=== PATIENT | female | born 1950 | race Caucasian/White ===

== ENCOUNTER 2016-07-13 06:14 | Outpatient (CLI) | payer MEDICARE, OTHER ==
[~2016-07-13] VITALS: Ht 154.9 cm; Wt 59.9 kg
[~2016-07-13 06:14] MED LIST: ALPR0.25 PO; AMLO10TA2 PO; CALC-140 PO; DIPH25CA79 PO; GLIM4TAB PO; HYDR-700 PO; HYDR25TA4 PO; INSU100V5 SQ; LEVO112T55 PO; LISI40TA PO; METF1000 PO; METF500T4 PO; PRAV40TA2 PO; SERT50TA9 PO
[2016-07-13] MEDS ORDERED: ALEN70TA2 PO (13:32)
[2016-07-13] MEDS ORDERED: ASPI-586 PO (13:32)
[2016-07-13] MEDS ORDERED: LEVO125T6 PO (13:32)
[2016-07-13] MEDS ORDERED: INSU100I14 SQ (13:34)
[2016-07-13] MEDS ORDERED: DIVA500T PO (13:34)
[2016-07-13] MEDS ORDERED: OLAN5TAB3 PO (13:34)
[2016-07-13] MEDS ORDERED: OMEG100032 PO (13:34)
== END 2016-07-13 13:35 ==
LOC: PREOP 06:14
PROVIDERS: ATTEND Surgery
DX: Z01.818 Encounter for other preprocedural examination (principal); D50.9 Iron deficiency anemia, unspecified; K21.9 Gastro-esophageal reflux disease without esophagitis; K92.1 Melena

== ENCOUNTER 2016-07-17 09:34 | Day surgery (SDC) | payer MEDICARE, OTHER ==
[~2016-07-17] VITALS: Ht 154.9 cm; Wt 59.9 kg
[~2016-07-17 09:34] MED LIST changes: +ALEN70TA2 PO; +ASPI-586 PO; +DIVA500T PO; +INSU100I14 SQ; +LEVO125T6 PO; +OLAN5TAB3 PO; +OMEG100032 PO
[2016-07-17] MEDS ORDERED: NS IV 500 ML 500 ML IV PRN (09:45)
[2016-07-17] MEDS ORDERED: NALOXONE 0.4 MG/ML 1 ML (NARCAN) VIAL IVP PRN (09:45)
[2016-07-17] MEDS ORDERED: HURRICAINE EXT TUBE (BENZOCAINE) XX PRN (09:45)
[2016-07-17] MEDS ORDERED: FLUMAZENIL (ROMAZICON) 0.1 MG/ML 5 ML VIAL INJ PRN (09:45)
--- NOTE | 2016-07-17 09:47 | Conscious Sedation/ASA ---
Conscious Sedation Pre-Proced Time Reviewed: 09:47 ASA Class: 2 Airway Mallampati Classification: (afognak appropriate class) I. II. III, IV Lungs Heart ASA score ASA 1: a normal healthy patient ASA 2: a patient with a mild systemic disease (mid diabetes, controlled hypertension, obesity ASA 3: a patient with a severe systemic disease that limits activity (angina , COPD, prior Myocardial infarction) ASA 4: a patient with an incapacitating disease that is a constant threat to life (CHF, renal failure) ASA 5: a moribund patient not expected to survive 24 hrs. (ruptured aneurysm) ASA 6: a declared brain patient whose organs are being harvested. For emergent operations, add the letter E after the classification Grade 1 Sedation Plan: Discussed options with patient/fam Note The patient is an appropriate candidate to undergo the planned procedure, sedation, and anesthesia. The patient immediately re-assessed prior to indication. DICK SHIRLEY MD Jul 17, 2016 9:47 am
[2016-07-17 10:30] VITALS: BP 130/81
[2016-07-17] MEDS ORDERED: MIDAZOLAM 2 MG/2 ML (VERSED) VIAL ONE ×4 (10:45→10:46)
[2016-07-17] MEDS ORDERED: fentaNYL INJECTION 100 MCG/2 ML AMP ONE ×2 (10:45)
[2016-07-17] MEDS: fentaNYL INJECTION 100 MCG/2 ML AMP IVP PRN ×2 (11:05→11:08)
[2016-07-17] MEDS: MIDAZOLAM 2 MG/2 ML (VERSED) VIAL IVP PRN ×3 (11:06→11:25)
--- NOTE | 2016-07-17 11:41 | Endoscopy Procedure Report ---
Endoscopy Report Date: Jul 17, 2016 Preoperative Diagnosis: iron deficiency anemia. Personal history of polyps Study Performed: Upper Endoscopy, Colonoscopy Procedure Instrument: Endoscope Endo Procedure/Findings Findings 1.: Diverticulosis, Hiatal Hernia, Gastritis Recommendations: Recommendations: 1.: Colonscopy in 5 years Copy Copies To 1: MEDARDO MALDONADO XAVIER M MD Jul 17, 2016 11:41 am
--- NOTE | 2016-07-17 11:43 | Discharge Inst-Simple/Standard ---
Discharge Inst-Standard Discharge Medications New, Converted or Re-Newed RX: Other Patient Instructions/Follow Up Plan of Care/Instructions/FU: follow-up with her primary. Repeat colonoscopy in 5years Activity as Tolerated: Yes Discharge Diet: ADA Diet DICK SHIRLEY MD Jul 17, 2016 11:43 am
[2016-07-17 12:00] VITALS: BP 128/85
[2016-07-17] MEDS ORDERED: HURRICAINE EXT TUBE (BENZOCAINE) ONE (12:06)
--- NOTE | 2016-07-17 12:19 | OPERATIVE REPORT ---
DATE OF SERVICE: 07/17/2016 PROCEDURES: 1. Upper endoscopy with antral biopsy. 2. Colonoscopy. SURGEON: Dick Shirley MD INDICATION FOR PROCEDURE: This lady came in for GI endoscopy to evaluate iron deficiency anemia and symptoms of reflux disease. In addition, she was also found to have a polyp about nine years ago, that was complicated by post-polypectomy bleeding, requiring hospital admission. Informed consent was obtained after reviewing the procedures in detail. DESCRIPTION OF PROCEDURE: 1. Upper GI endoscopy/antral biopsy. She was placed in left lateral decubitus position and her vital signs were monitored. Conscious sedation was achieved using Versed and fentanyl. The flexible gastroscope was introduced down the esophagus, past the stomach into the proximal duodenum. FINDINGS: Esophagus: Quite tortuous with a short hiatal hernia. Stomach: Mild distal gastritis. Biopsy for Helicobacter was obtained. Duodenum: Normal. She tolerated the procedure well and was turned around in preparation for colonoscopy. IMPRESSION: Iron deficiency anemia. Mild gastritis on upper endoscopy. 2. Colonoscopy. Examination of the perianal area revealed external hemorrhoids and skin tags. Digital examination was unremarkable. The colonoscope was then introduced into the rectum and advanced with some difficulty to the cecum. It was then withdrawn slowly and the mucosa examined in a systematic fashion. FINDINGS: 1. External and internal hemorrhoids, possible source of her bleeding. 2. Very large amounts of diverticula. No recurrent polyps were found. She tolerated the procedures well and was taken back to the nursing area in a stable condition. IMPRESSION: Iron deficiency anemia. Previous history of colon polyps, no recurrence. Large mouthed sigmoid diverticula. Job ID: [id number] DocumentID: [id number] Dictated Date: 07/17/2016 11:40:05 Woodworker Date: 07/17/2016 12:19:01 Dictated By: DICK SHIRLEY MD [facility]
[2016-07-17 12:30] VITALS: BP 141/82
== END 2016-07-17 12:37 | disposition home or self-care (01) ==
LOC: ENDO 09:34
PROVIDERS: ATTEND Surgery
DX: K29.70 Gastritis, unspecified, without bleeding (principal); D50.9 Iron deficiency anemia, unspecified; K64.4 Residual hemorrhoidal skin tags; K64.8 Other hemorrhoids; K57.30 Diverticulosis of large intestine without perforation or abscess without bleeding; Z86.010 Personal history of colon polyps

== ENCOUNTER 2016-10-02 22:23 | Emergency (ER) | payer MEDICARE, OTHER ==
[~2016-10-02] VITALS: Ht 154.9 cm; Wt 61.2 kg
--- OUTSIDE RECORDS SUMMARY | 2016-10-02 22:29 | XMS REPORT | Continuity of Care Document ---
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 Major depressive disorder (disorder) Active Problem 11/09 [facility] Medications Medication Details Route Status Patient Instructions Ordering Provider Order Date Source No Known Medications No known medications Active [facility] Allergies, Adverse Reactions, Alerts Immunizations Immunization Date Given Site Status Last Updated Comments Source No data available for this section No data available for this section [employer] Results Vital Signs Encounters Location Location Details Encounter Type Encounter Number Reason For Visit Attending Provider ADM Date DC Date Status Source [facility] [id number] Inpatient [id number] Hussain Bruno 11/05/2015 11/06/2015 Active [facility] Procedures Procedure Code Date Perfomer Comments Source right mastectomy [facility] Plan of Care Social History Assessment and Plan Family History Value Date Source Advance Directives Order Name Results Value Date Source
[2016-10-02] MEDS ORDERED: ONDANSETRON 4 MG/2 ML (SDV) Z0FRAN IM ONE (22:45)
--- NOTE | 2016-10-02 22:45 | ED Fall/Injury ---
General Chief Complaint: Trauma-Non Activation Stated Complaint: RT LEG INJ Source: patient, family (daughter) Exam Limitations: no limitations History of Present Illness Time seen by provider: 22:40 Initial Comments Patient was on the second run of a stepladder in her house and lost her balance and fell off landing with her back against a dresser and then having some pain in her right knee although she is not sure what she hit it on. She states she did not lose consciousness, strike her head nor she on blood thinners. She is having some nausea but no vomiting. She's had no fevers chills rash cough or shortness of breath. She denies dysuria or discharge. Patient's on Fosamax for osteoporosis. She says several days ago she dropped something on her right foot and has had a lot of bruising and swelling but it didn't stop her from walking on it. Today she is unable to bear any weight at all on her right leg due to pain in her right thigh and knee. Allergies and Home Medications Allergies Coded Allergies: No Known Drug Allergies (Unverified , 11/26/15) Home Medications Alendronate Sodium 70 Mg Tablet, 70 MG PO WEEK, (Reported) Amlodipine Besylate 10 Mg Tablet, 10 MG PO DAILY, (Reported) Aspirin 81 Mg Tablet.dr, 81 MG PO DAILY, (Reported) Calcium Carbonate/Vitamin D3 1 Each Tablet, 1 EACH PO BID, (Reported) Cephalexin 500 Mg Capsule, 500 MG PO BID for 7 Days, #13 Ref 0 Prescribed by: HALIE MODI on 10/02/162337 Divalproex Sodium 500 Mg Tablet.dr, 500 MG PO HS, (Reported) Hydrochlorothiazide 25 Mg Tablet, 12.5 MG PO DAILY, (Reported) Hydrocodone/Acetaminophen 1 Each Tablet, 1-2 EACH PO Q6H PRN for BREAKTHROUGH PAIN, #20 Ref 0 Prescribed by: HALIE MODI on 10/02/168 Insulin Aspart 300 Units/3 Ml Solution, 0-20 UNITS SQ ACHS, (Reported) Insulin Determir 1,000 Units/10 Ml Soln, 20 UNITS SQ HS, (Reported) Levothyroxine Sodium 125 Mcg Tablet, 125 MCG PO DAILY, (Reported) Lisinopril 40 Mg Tablet, 40 MG PO HS, (Reported) Metformin HCl 500 Mg Tablet, 500-1,000 MG PO BID, (Reported) take 1 (500mg) tab in am take 2 (500mg) tab in pm Olanzapine 5 Mg Tablet, 5 MG PO HS, (Reported) [place]-3/Dha/Epa/Fish Oil 1,000 Mg Capsule, 1,000 MG PO DAILY, (Reported) Ondansetron 4 Mg Tab.rapdis, 4 MG PO Q6H PRN for NAUSEA/VOMITING-1ST LINE, #10 Ref 0 Prescribed by: HALIE MODI on 10/02/16 2338 Pravastatin Sodium 40 Mg Tablet, 40 MG PO HS, (Reported) Sertraline HCl 50 Mg Tablet, 75 MG PO HS, (Reported) take 1 1/2 of 50mg tab Constitutional: No chills, No diaphoresis, No fever, No malaise Eyes: Denies Blindness, Denies Blurred Vision Ears, Nose, Mouth, Throat: denies ear pain, denies epistaxis Respiratory: No cough, No short of breath Cardiovascular: No chest pain, No palpitations Gastrointestinal: No abdominal pain, No constipation, No diarrhea, nausea, No vomiting Genitourinary: No discharge, No dysuria Musculoskeletal: see HPI, back pain, joint pain (right knee), No joint swelling Skin: No pruritus, No rash Psychiatric/Neurological: Denies Headache, Denies Numbness, Denies Paresthesia Past Unwhltz-Lwhggt-Lgtodo Hx Patient Social History Alcohol Use: Denies Use Recreational Drug Use: No Smoking Status: Never a Smoker Recent Foreign Travel: No Contact w/Someone Who Travel: No Recent Hopitalizations: No Immunizations Up To Date Tetanus Booster (TDap): Unknown Date of Influenza Vaccine: Nov 15, 2015 Seasonal Allergies Seasonal Allergies: No Surgeries History of Surgeries: Yes Surgeries: Breast, Tubal Ligation Respiratory History of Respiratory Disorde: No Cardiovascular History of Cardiac Disorders: Yes Cardiac Disorders: High Cholesterol, Hypertension Neurological History of Neurological Disord: No Reproductive System Hx Reproductive Disorders: No Sexually Transmitted Disease: No HIV/AIDS: No 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 Genitourinary History of Genitourinary Disor: No Gastrointestinal History of Gastrointestinal Di: Yes Gastrointestinal Disorders: Gastroesophageal Reflux, Diverticulosis Musculoskeletal History of Musculoskeletal Dis: No Endocrine History of Endocrine Disorders: Yes Endocrine Disorders: Diabetes, Insulin dep, Hypothyroidsim HEENT History of HEENT Disorders: No Loss of Vision: Bilateral Hearing Impairment: Hard of Hearing, Bilateral Hearing Aide Cancer History of Cancer: Yes Cancer: Breast Did You Recieve Any Treatments: Yes Type of Tx Receive: Surgical Intervention Psychosocial History of Psychiatric Problem: Yes Behavioral Health Disorders: Sleep Difficulties, Anxiety, Depression Integumentary History of Skin or Integumenta: No Blood Transfusions History of Blood Disorders: Yes (anemia) Adverse Reaction to a Blood Tr: No (HAS HAD BLOOD WITH NO REACTION) Physical Exam Vital Signs Vital Sign - Last 12Hours 10/02/16 22:36 Temp 97.6 Pulse 82 Resp 16 B/P (MAP) 137/84 Pulse Ox 95 O2 Delivery Room Air Capillary Refill : General Appearance: WD/WN, no apparent distress HEENT: PERRL/EOMI, pharynx normal Neck: non-tender, normal inspection Cardiovascular: normal peripheral pulses, regular rate, rhythm Respiratory: chest non-tender, lungs clear, normal breath sounds Peripheral Pulses: 1+ Dorsalis Pedis (R), 1+ Left Dors-Pedis (L), 2+ Radial Pulses (R), 2+ Radial Pulses (L) Gastrointestinal: normal bowel sounds, non tender, soft Back: normal inspection, muscle spasm (left side of the lumbar spine), vertebral tenderness (lumbar and thoracic) Extremities: normal range of motion, normal inspection, normal capillary refill , other (tenderness to lateral tibial plateau of the right knee. She has some laxity and tenderness on stretching of her lateral collateral but it does appear to be intact.) Neurologic/Psychiatric: no motor/sensory deficits, alert, oriented x 3 Skin: normal color, warm/dry, ecchymosis (dorsum of right foot) Progress/Results/Core Measures Results/Orders Lab Results Laboratory Tests Test 10/02/16 22:50 Range/Units Urine Color YELLOW Urine Clarity CLEAR Urine pH 6 5-9 Urine Specific [place] 1.020 1.016-1.022 Urine Protein 2+ H NEGATIVE Urine Glucose (UA) NEGATIVE NEGATIVE Urine Ketones 2+ H NEGATIVE Urine Nitrite NEGATIVE NEGATIVE Urine Bilirubin 1+ H NEGATIVE Urine Urobilinogen 4 H NORMAL MG/DL Urine Leukocyte Esterase 3+ H NEGATIVE Urine RBC (Auto) NEGATIVE NEGATIVE Urine RBC RARE /HPF Urine WBC 10-25 H /HPF Urine Squamous Epithelial Cells 0-2 /HPF Urine Crystals NONE /LPF Urine Bacteria FEW H /HPF Urine Casts NONE /LPF Urine Mucus NEGATIVE /LPF Urine Culture Indicated YES My Orders Orders - RIAN,HALIE J Ua Culture If Indicated (10/02/16 22:38) Knee, Right, 3 Views (10/02/16 22:38) Ondansetron Injection (Zofran Injectio (10/02/16 22:45) Thoracic Spine, 2 Views Only (10/02/16 22:45) Lumbar Spine - 2-3 Views (10/02/16 22:45) Urine Culture (10/02/16 22:50) Cephalexin Capsule (Keflex Capsule) (10/02/16 23:30) Ct Extremity Lower Right Wo (10/02/16 23:24) Medications Given in ED Current Medications Medications Dose Ordered Sig/Terry Route Start Time Stop Time Status Last Admin Dose Admin Cephalexin HCl 500 mg ONCE ONCE PO 10/02/16 23:30 10/02/16 23:31 DC 10/02/16 23:28 500 MG Ondansetron HCl 4 mg ONCE ONCE IM 10/02/16 22:45 10/02/16 22:46 DC 10/02/16 22:50 4 MG Vital Signs/I&O Vital Sign - Last 12Hours 10/02/16 22:36 Temp 97.6 Pulse 82 Resp 16 B/P (MAP) 137/84 Pulse Ox 95 O2 Delivery Room Air Diagnostic Imaging Diagonstic Imaging: Xray Plain Films/CT/US/NM/MRI: other (lumbar and thoracic spine) Comments No acute osseous abnormalities. There is no spinal listhesis or impression fractures of the vertebral spines as imaged. No acute soft tissue abnormalities noted. Reviewed: Reviewed by Me Diagonstic Imaging: Xray Plain Films/CT/US/NM/MRI: knee (right) Comments There is a fibula proximal neck fracture as well as a lateral articular condylar surface of the proximal tibia fracture minimal displacement. Closed. Reviewed: Reviewed by Me Diagonstic Imaging: CT Plain Films/CT/US/NM/MRI: knee Comments Tibia with medial lateral comminuted depressed fracture of the articular surface. Fibula distal head fracture. Closed. Comminuted fracture of the head the fibula. Comminuted inferior displaced lateral tibial condyle fracture extends and involves intercondylar eminence.Small joint effusion. Also some mild soft tissue swelling about the anterior knee. Reviewed: Reviewed [employer]acon Study, Reviewed by Me Consults Consults : Consulting Physician: YEIMY DIA DO Consults Notes Discussed the case and the nature of the fracture seen on x-ray. He wants to make the patient nonweightbearing and get a CT scan of the knee and have her follow-up in the clinic this week. Departure Impression Impression: Primary Impression: Tibia/fibula fracture Qualified Codes: S82.201A - Unspecified fracture of shaft of right tibia, initial encounter for closed fracture; S82.401A - Unspecified fracture of shaft of right fibula, initial encounter for closed fracture Additional Impression: UTI (urinary tract infection) Qualified Codes: N30.01 - Acute cystitis with hematuria Disposition: HOME, SELF-CARE Condition: Stable Departure-Patient Inst. Decision time for Depature: 00:19 Referrals: MEDARDO MALDONADO DO (PCP) Primary Care Physician CLINT PARKS (Family) Primary Care Physician Patient Instructions: Tibial Plateau Fracture (DC) Add. Discharge Instructions: You may use Tylenol 1000 mg every 8 hours or ibuprofen 800 mg every 8 hours. However this is not enough you can also apply an ice pack directly over the site for 20 minutes every 4-6 hours. You may also use the hydrocodone every 6 hours as needed. If you're on the hydrocodone should also use MiraLAX to keep herself from getting constipated. Be aware that while on hydrocodone this can make you drowsy and more prone to have falls. You are to be nonweightbearing which means do not place any weight on your right leg at all not even toe-touch to the ground. Keep your leg elevated at or above the level of your heart to keep swelling down and to control pain. You should return to the ER if you have inability to feel your leg below the knee, discoloration, cool to the touch or other new or worrisome symptoms. Tomorrow morning call Dr. Dia at [address] [place] [address] orthopedics surgery clinic [phone] to be seen later this week. All discharge instructions reviewed with patient and/or family. Voiced understanding. Scripts Ondansetron (Zofran Odt) 4 Mg Tab.rapdis 4 MG PO Q6H Y for NAUSEA/VOMITING-1ST LINE, #10 TAB 0 Refills Prov: HALIE MODI 10/02/16 Hydrocodone/Acetaminophen (Hydrocodon -Acetaminophen 5-325) 1 Each Tablet 1-2 EACH PO Q6H Y for BREAKTHROUGH PAIN, #20 TAB 0 Refills Prov: HALIE MODI 10/02/16 Cephalexin (Keflex) 500 Mg Capsule 500 MG PO BID for 7 Days, #13 CAP 0 Refills Prov: HALIE MODI 10/02/16 Copy Copies To 1: MEDARDO MALDONADO DO Copies To 2: YEIMY DIA DO HALIE MODI Oct 02, 2016 22:45
[2016-10-02 22:57] LABS: KETONES,URINE 2+ (NEGATIVE); LEUKOCYTE ESTERASE ,URINE 3+ (NEGATIVE); NITRITE,URINE NEGATIVE (NEGATIVE); PH,URINE 6 (5-9); PROTEIN,URINE 2+ (NEGATIVE); UROBILINOGEN,URINE 4 MG/DL (NORMAL)
[2016-10-02 23:08] LABS: BILIRUBIN,URINE 1+ (NEGATIVE)
[2016-10-02 23:09] LABS: SQUAMOUS EPITHELIAL CELL,UR 0-2 /HPF
[2016-10-02] MEDS ORDERED: CEPHALEXIN 250 MG (KEFLEX) CAP PO ONE (23:30)
[2016-10-02] MEDS ORDERED: HYDR-3812 PO (23:38)
[2016-10-02] MEDS ORDERED: ONDA4TAB8 PO (23:38)
[2016-10-02] MEDS ORDERED: CEPH-507 PO (23:38)
[2016-10-03] MEDS ORDERED: RX-HYDROCODONE/APAP 5/325 MG #4 TAB PK PO ONE (00:13)
[2016-10-03 00:30] VITALS: BP 145/86
[2016-10-03] MEDS ORDERED: RX-HYDROCODONE/APAP 5/325 MG #4 TAB PK PO PRN (00:30)
--- NOTE | 2016-10-03 07:14 | Diagnostic Imaging Report ---
PROCEDURE: CT right lower extremity without contrast. TECHNIQUE: Axially acquired CT was obtained through the right lower extremity without intravenous contrast. Coronal and sagittal reformations were also performed. INDICATION: Fall. Back pain. COMPARISON: None. FINDINGS: There is a comminuted depressed fracture through the lateral tibial condyle and extending into the intercondylar eminence of the proximal tibia. There is approximately 12 mm of depression of the lateral plateau fragments. There is also a mildly comminuted fracture through the head of the fibula. Distal femur appears unremarkable. No additional significant abnormality is seen. IMPRESSION: 1. Depressed comminuted fracture of the lateral tibial plateau extending to involving the intercondylar eminence of the proximal tibia. 2. Nondisplaced slightly comminuted fracture of the fibular head. Agree with [employer] interpretation. Dictated by: Dictated on workstation # [id number]
--- NOTE | 2016-10-03 07:18 | Diagnostic Imaging Report ---
INDICATION: Fall. Pain. COMPARISON: None. FINDINGS: Three views of the lumbar spine are obtained. No acute fracture, malalignment or osseous destructive process is seen. Vertebral body height are maintained. There is minimal disc space narrowing at L5/S1. Disc spaces otherwise appear preserved. Pedicles appear intact. There are mild degenerative change at the sacroiliac joints bilaterally. IMPRESSION: No acute abnormality is seen. Mild degenerative changes as described. Dictated by: Dictated on workstation # [id number]
--- NOTE | 2016-10-03 07:18 | Diagnostic Imaging Report ---
INDICATION: Fall. Pain. COMPARISON: None. FINDINGS: 3 views of the right knee are obtained. There is a comminuted mildly depressed fracture of the lateral tibial plateau. There is also a fracture through the head of the fibula. No additional fractures seen. IMPRESSION: Mildly depressed comminuted lateral tibial plateau fracture and fibular head fracture. Dictated by: Dictated on workstation # [id number]
--- NOTE | 2016-10-03 07:19 | Diagnostic Imaging Report ---
INDICATION: Fall. Pain. COMPARISON: None. FINDINGS: 3 views of the thoracic spine are obtained. No acute fracture, malalignment, or osseous destructive process is seen. Vertebral body heights appear maintained. There is some degenerative endplate spurring and mild generalized osteopenia. IMPRESSION: No acute fracture demonstrated. Dictated by: Dictated on workstation # [id number]
== END 2016-10-03 00:23 | disposition home or self-care (01) ==
LOC: EDUNIT# 22:23 → ER 22:25
DX: S82.141A Displaced bicondylar fracture of right tibia, initial encounter for closed fracture (principal); S82.831A Other fracture of upper and lower end of right fibula, initial encounter for closed fracture; N39.0 Urinary tract infection, site not specified; E78.00 Pure hypercholesterolemia, unspecified; I10 Essential (primary) hypertension; K21.9 Gastro-esophageal reflux disease without esophagitis; F41.9 Anxiety disorder, unspecified; F32.9 Major depressive disorder, single episode, unspecified; E11.9 Type 2 diabetes mellitus without complications; E03.9 Hypothyroidism, unspecified; Z85.3 Personal history of malignant neoplasm of breast; Z87.19 Personal history of other diseases of the digestive system; Z98.51 Tubal ligation status; Z79.82 Long term (current) use of aspirin; Z79.4 Long term (current) use of insulin; Z79.84 Long term (current) use of oral hypoglycemic drugs; W11.XXXA Fall on and from ladder, initial encounter; W22.03XA Walked into furniture, initial encounter; Y92.009 Unspecified place in unspecified non-institutional (private) residence as the place of occurrence of the external cause
CPT/HCPCS: 72070; 72100; 73562; 73700; 81000; 87088; 96372; 99283

== ENCOUNTER 2016-10-04 08:00 | Outpatient (CLI) | payer MEDICARE, OTHER ==
[~2016-10-04] VITALS: Ht 154.9 cm; Wt 61.2 kg
[~2016-10-04 08:00] MED LIST changes: +CEPH-507 PO; +HYDR-3812 PO; +ONDA4TAB8 PO
== END 2016-10-04 08:35 ==
LOC: PREOP 08:00
PROVIDERS: ATTEND Orthopaedic Surgery
DX: Z01.818 Encounter for other preprocedural examination (principal); S82.141A Displaced bicondylar fracture of right tibia, initial encounter for closed fracture; X58.XXXA Exposure to other specified factors, initial encounter; Y99.8 Other external cause status

== ENCOUNTER 2016-10-05 11:35 | Day surgery (SDC) | payer MEDICARE, OTHER ==
[~2016-10-05] VITALS: Ht 154.9 cm; Wt 61.2 kg
--- OUTSIDE RECORDS SUMMARY | 2016-10-05 11:39 | XMS REPORT | Continuity of Care Document ---
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 Role Phone [employer] Unavailable Unavailable Problems Problem Status Onset Date Classification Date Reported Comments Source Major depressive disorder (disorder) 11/06/2015 Diagnosis 11/10/2015 [employer] Major depressive disorder (disorder) Active Problem 11/09 [facility] Medications Medication Details Route Status Patient Instructions Ordering Provider Order Date Source No Known Medications No known medications Active [facility] Allergies, Adverse Reactions, Alerts Immunizations Immunization Date Given Site Status Last Updated Comments Source No data available for this section No data available for this section [employer]. Results Vital Signs Encounters Location Location Details Encounter Type Encounter Number Reason For Visit Attending Provider ADM Date DC Date Status Source [facility] [id number] Inpatient [id number] Hussain Bruno 11/05/2015 11/06/2015 Active [facility] Procedures Procedure Code Date Perfomer Comments Source right mastectomy [facility] Plan of Care Social History Assessment and Plan Family History Value Date Source Advance Directives Order Name Results Value Date Source
[2016-10-05] MEDS ORDERED: LACTATED RINGERS 1,000 ML IV PRN ×2 (11:56→12:51)
[2016-10-05] MEDS ORDERED: BUPIVACAINE 0.25% 30 ML (SENSORCAINE) VIAL ONE (12:45)
[2016-10-05] MEDS ORDERED: ROPIVACAINE 5MG/ML 30ML VIAL ONE ×2 (12:50→14:38)
[2016-10-05] MEDS ORDERED: MIDAZOLAM 2 MG/2 ML (VERSED) VIAL ONE (12:50)
[2016-10-05] MEDS ORDERED: fentaNYL INJECTION 100 MCG/2 ML AMP ONE (12:50)
[2016-10-05] MEDS ORDERED: ONDANSETRON 4 MG/2 ML (SDV) Z0FRAN IV ONE (13:00)
[2016-10-05] MEDS ORDERED: fentaNYL INJECTION 100 MCG/2 ML AMP IV ONE (13:00)
[2016-10-05 13:11] VITALS: BP 144/80
[2016-10-05] MEDS ORDERED: SEVOFLURANE (ULTANE) 15 ML INHAL SOLN ONE ×6 (13:21→14:56)
[2016-10-05] MEDS ORDERED: LACTATED RINGERS 1,000 ML IV ONE ×2 (13:21→15:23)
[2016-10-05] MEDS ORDERED: proPOfol 200 MG/20 ML (DIPRIVAN) VIAL IV ONE (13:22)
[2016-10-05] MEDS ORDERED: ceFAZolin 2 GM/50 ML NS 50 ML ONE (13:22)
[2016-10-05] MEDS ORDERED: LIDOCAINE PF 2% 5 ML (XYLOCAINE) VIAL ONE (13:22)
--- NOTE | 2016-10-05 13:37 | Progress Note-Pre Operative ---
Pre-Operative Progress Note H&P Reviewed The H&P was reviewed, patient examined and no changes noted. Date Seen by Provider: Oct 05, 2016 Time Seen by Provider: 13:37 Date H&P Reviewed: Oct 05, 2016 Time H&P Reviewed: 13:37 Pre-Operative Diagnosis: Right lateral tibial plateau fracture BROOKE ANDRADE MD Oct 05, 2016 13:37
--- NOTE | 2016-10-05 13:41 | Anesthesia-Peripheral Nerve Bl ---
Procedure Start/Stop Time Date of Procedure: Oct 05, 2016 Start Time: 13:15 Stop Time: 13:30 Peripheral Nerve Block Peripheral Nerve Blockade Risk/Benefits/Alternatives discussed, including IV injection leading to complications or seizures, nerve irritation or damage, pneumothorax, total spinal anesthesia, injection, and/or bleeding. Approach: Femoral Nerve Block Side Confirmed: RIGHT Indication: Req Pain Mgmt by Surgeon Specifically requested for management of pain by: Dr. Gonzalez Patient Condition Vital Signs Vital Signs Date Time Temp Pulse Resp B/P (MAP) Pulse Ox O2 Delivery O2 Flow Rate FiO2 10/05/16 13:11 97.7 84 18 144/80 95 Room Air Patient Condition: Sedate/contact maintained Procedure Prepartation: Chlorhexidine Position: Supine [place]: Short-bevel Needle (s) Size: 22g 2" Technique: Nerve Stimulation, Ultrasound (Needle placement visualized under ultrasound.) Motor response or parethesia o: Quad twitch lost at 0.48mA mA: 0.48 Sedation Given: Fentanyl (50 mcg), Midazolam (1 mg) Injectate: ropivacaine Concentration %: 0.5 Volume (ml): 30 Epinephrine used: No Narrative Injection was made incrementally with constant monitoring. Aspiration every (mls): 5 Blood Aspirated: No Pain on injection noted: No Normal Resistance on injection: Yes Events Events: None:easy well tolerated Sucess: Full evaluation-pending Patient Conditon Post Peripheral Nerve Block Post Peripheral Nerve Block Vital Signs: Blood Pressure: Systolic Diastolic Heart Rate Blood Pressure Systolic: 144 Blood Pressure Diastolic: 80 Pulse Rate (adult): 84 BOB FARIAS CRNA Oct 05, 2016 13:41
[2016-10-05] MEDS ORDERED: ONDANSETRON 4 MG/2 ML (SDV) Z0FRAN IV PRN (13:45)
[2016-10-05] MEDS ORDERED: ceFAZolin 2 GM/NS 50 ML IV ONE (13:45)
[2016-10-05] MEDS ORDERED: ONDANSETRON 4 MG (ZOFRAN) ORAL DISSOLVE TAB PO PRN (13:45)
[2016-10-05] MEDS ORDERED: HYDROcodone/APAP 7.5 MG/325 MG (LORTAB, LORCET PLUS) TABLET PO PRN (13:45)
--- OUTSIDE RECORDS SUMMARY | 2016-10-05 14:27 | XMS REPORT | Continuity of Care Document ---
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 Role Phone [employer] Unavailable Unavailable Problems Problem Status Onset Date Classification Date Reported Comments Source Major depressive disorder (disorder) 11/06/2015 Diagnosis 11/10/2015 [email or web address] Major depressive disorder (disorder) Active Problem 11/09 [facility] Medications Medication Details Route Status Patient Instructions Ordering Provider Order Date Source No Known Medications No known medications Active [facility] Allergies, Adverse Reactions, Alerts Immunizations Immunization Date Given Site Status Last Updated Comments Source No data available for this section No data available for this section [employer] Results Vital Signs Encounters Location Location Details Encounter Type Encounter Number Reason For Visit Attending Provider ADM Date DC Date Status Source [facility] [id number] Inpatient [id number] Hussain Bruno 11/05/2015 11/06/2015 Active [facility] Procedures Procedure Code Date Perfomer Comments Source right mastectomy [facility] Plan of Care Social History Assessment and Plan Family History Value Date Source Advance Directives Order Name Results Value Date Source
--- NOTE | 2016-10-05 15:07 | Progress Note-Post Operative ---
Post-Operative Progess Note Surgeon (s)/Circulation Sales Representative (s) Surgeon BROOKE ANDRADE MD Circulation Sales Representative: JAQUELINE VIZCAINO PA-C Pre-Operative Diagnosis Right lateral tibial plateau fracture Post-Operative Diagnosis SAME Procedure & Operative Findings Date of Procedure 10/05/16 Procedure Performed/Findings ORIF RIGHT LATERAL TIBIAL PLATEAU Anesthesia Type GENERAL WITH ULTRASOUND GUIDED FEMORAL NERVE BLOCK PLACED FOR POSTOP PAIN CONTROL Estimated Blood Loss Estimated blood loss (mL): <50 ML Specimens/Packing Specimens Removed NONE Packing: NONE BROOKE ANDRADE MD Oct 05, 2016 15:07
[2016-10-05] MEDS ORDERED: morphine INJ 10 MG/ML 1ML (SYR OR VIAL) IVP PRN (15:30)
[2016-10-05] MEDS ORDERED: ONDANSETRON 4 MG/2 ML (SDV) Z0FRAN IVP PRN (15:30)
[2016-10-05] MEDS ORDERED: fentaNYL INJECTION 100 MCG/2 ML AMP IVP PRN (15:30)
[2016-10-05] MEDS ORDERED: INSULIN ASPART SQ SCH (16:00)
[2016-10-05 16:22] VITALS: BP 179/95
[2016-10-05] MEDS ORDERED: PATIENT MAY USE OWN MEDS, ALL MC SCH (16:30)
[2016-10-05] MEDS: morphine INJ 4 MG/ML 1 ML (VIAL/SYRINGE) IVP PRN (17:04)
[2016-10-05] MEDS ORDERED: inSUlin ASPART (NovoLOG) 1 UNIT/0.01 ML (CHARGE PER UNIT) ONE (17:59)
[2016-10-05] MEDS: HYDROcodone/APAP 10 MG/325 MG (LORTAB) TAB PO PRN ×2 (18:07→22:07)
[2016-10-05] MEDS: inSUlin ASPART (NovoLOG) 1 UNIT/0.01 ML (CHARGE PER UNIT) SC SCH ×2 (18:08→21:04)
[2016-10-05] MEDS: metFORMIN 500 MG (GLUCOPHAGE) TAB PO SCH (18:59)
[2016-10-05 20:00] VITALS: BP 158/73
[2016-10-05] MEDS ORDERED: NON-FORMULARY MEDICATION 1 EA EA (Lisinopril 40 MG) PO SCH (21:00)
[2016-10-05] MEDS ORDERED: ATORVASTATIN 10 MG (LIPITOR) TABLET PO SCH (21:00)
[2016-10-05] MEDS ORDERED: NON-FORMULARY MEDICATION 1 EA EA (Pravastatin Sodium 40 MG) PO SCH (21:00)
[2016-10-05] MEDS ORDERED: lisINopril 20 MG (ZESTRIL) TAB PO SCH (21:00)
[2016-10-05] MEDS ORDERED: DIVALPROEX 500 MG DELAYED RELEASE (DEPAKOTE) TAB PO SCH (21:00)
[2016-10-05] MEDS ORDERED: inSUlin DETERMIR 1 UNIT/0.01 ML (LEVEMIR) CHARGE PER UNIT SQ SCH (21:00)
[2016-10-05] MEDS ORDERED: SERTRALINE 50 MG (ZOLOFT) TABLET PO SCH (21:00)
[2016-10-05] MEDS ORDERED: OLANZapine 5 MG (ZyPREXA) TAB PO SCH (21:00)
[2016-10-05] MEDS ORDERED: DOCUSATE SODIUM 100 MG (COLACE) CAP PO SCH (21:00)
[2016-10-05] MEDS: POLYETHYLENE GLYCOL 17 GM (MIRALAX) PACK PO SCH (21:02)
[2016-10-05] MEDS: ceFAZolin 2 GM/50 ML NS 50 ML IV SCH (22:07)
--- NOTE | 2016-10-05 22:45 | Diagnostic Imaging Report ---
Fluoroscopy INDICATION: ORIF tibial plateau fracture. Fluoroscopic assistance was provided for Dr. Gonzalez during his ORIF right tibial procedure. 50 seconds of fluoroscopy time was utilized. The previous CT right lower extremity exam 10/02/16 did note a depressed comminuted fracture of the lateral tibial plateau. AP and lateral views of the right knee show that there is now orthopedic plate and screw fixation device along the lateral aspect of the proximal tibia. The orthopedic hardware appears to be in good position and the main fracture lines appear to be in near anatomic alignment. IMPRESSION: Fluoroscopic assistance was provided for Dr. Gonzalez during his ORIF procedure of the right tibia. Dictated by: Dictated on workstation # [id number]
[2016-10-05 23:30] VITALS: BP 188/91
[2016-10-06 00:30] VITALS: BP 164/82
[2016-10-06] MEDS ORDERED: IBUPROFEN TABLET 200 MG TAB PO PRN (01:15)
[2016-10-06] MEDS ORDERED: ENOXAPARIN 40 MG/0.4 ML (LOVENOX) SYR SC SCH (01:45)
[2016-10-06] MEDS: HYDROcodone/APAP 10 MG/325 MG (LORTAB) TAB PO PRN ×2 (02:04→04:35)
[2016-10-06] MEDS: morphine INJ 4 MG/ML 1 ML (VIAL/SYRINGE) IVP PRN (02:55)
[2016-10-06 03:25] VITALS: BP 139/77
[2016-10-06] MEDS: ceFAZolin 2 GM/50 ML NS 50 ML IV SCH (05:49)
[2016-10-06] MEDS: metFORMIN 500 MG (GLUCOPHAGE) TAB PO SCH (06:40)
[2016-10-06] MEDS: inSUlin ASPART (NovoLOG) 1 UNIT/0.01 ML (CHARGE PER UNIT) SC SCH (06:42)
--- NOTE | 2016-10-06 07:38 | Progress Note (SOAP) ---
Subjective Date Seen by Provider: Oct 06, 2016 Time Seen by Provider: 07:32 Subjective/Events-last exam Patient awake and A&Ox4, but tired. She had more pain then expected but pain medication is helping. Review of Systems General: Fatigue Neurological: No: Weakness, Numbness, Incoordination, Change in speech, Confusion, Seizures, Other Objective Exam Vital Signs Date Time Temp Pulse Resp B/P (MAP) Pulse Ox O2 Delivery O2 Flow Rate FiO2 10/06/16 04:35 96.8 10/06/16 03:25 99.0 88 18 139/77 95 Nasal Cannula 4.00 10/06/16 02:54 98.7 10/06/16 02:54 98.7 10/06/16 02:04 99.2 10/06/16 02:03 99.2 10/06/16 01:40 99.9 10/06/16 01:39 99.9 10/06/16 01:10 101.0 10/06/16 00:30 101.0 86 18 164/82 10/05/16 23:30 102.1 91 20 188/91 97 Nasal Cannula 3.00 10/05/16 21:00 Nasal Cannula 3.00 10/05/16 20:00 99.5 76 18 158/73 98 10/05/16 16:22 98.6 88 20 179/95 96 10/05/16 16:15 Nasal Cannula 3.00 10/05/16 13:11 97.7 84 18 144/80 95 Room Air Capillary Refill : Less Than 3 Seconds General Appearance: No Apparent Distress, WD/WN Peripheral Pulses: 3+ Radial Pulses (R) Extremity: Normal Capillary Refill, Normal Inspection, Normal Range of Motion, Non Tender, No Calf Tenderness, No Pedal Edema Neurologic/Psychiatric: Alert, Oriented x3, Normal Mood/Affect Skin: Normal Color, Warm/Dry Results Lab Laboratory Tests 10/05/16 17:37: Glucometer 312H 10/05/16 20:50: Glucometer 261H 10/06/16 05:35: Glucometer 282H Assessment/Plan Assessment/Plan Assess & Plan/Chief Complaint ORIF Right Tibia plateau fracture Plan: They will see if the patient qualifies for in patient rehab today and move her today or tomorrow. If she does not qualify, she will stay her for the next few days and determine if she can go home go to a SNU. Clinical Quality Measures DVT/VTE Risk/Contraindication: Risk Factor Score Per Nursin RFS Level Per Nursing on Admit: 4+=Very High JAQUELINE VIZCAINO Oct 06, 2016 07:38
[2016-10-06 08:00] VITALS: BP 103/60
[2016-10-06] MEDS ORDERED: DOCUSATE SODIUM 100 MG (COLACE) CAP PO SCH (09:00)
[2016-10-06] MEDS ORDERED: amLODIPine 10 MG (NORVASC) TAB PO SCH ×2 (09:00)
[2016-10-06] MEDS ORDERED: ASPIRIN E.C. 81 MG (ECOTRIN) TAB PO SCH ×2 (09:00)
[2016-10-06] MEDS ORDERED: HYDROCHLOROTHIAZIDE 12.5 MG (HCTZ) CAP PO SCH (09:00)
[2016-10-06] MEDS ORDERED: HYDROCHLOROTHIAZIDE 25 MG (HCTZ) TAB PO SCH (09:00)
[2016-10-06] MEDS ORDERED: ONDANSETRON 4 MG (ZOFRAN) ORAL DISSOLVE TAB PO PRN (09:30)
[2016-10-06] MEDS ORDERED: HYDROcodone/APAP 10 MG/325 MG (LORTAB) TAB PO PRN (09:45)
--- NOTE | 2016-10-06 10:00 | Physical Therapy Evaluation ---
PT Evaluation-General Medical Diagnosis Admission Date Oct 05, 2016 at 13:40 Medical Diagnosis: right tibial plateau fracture Onset Date: Oct 01, 2016 Therapy Diagnosis Therapy Diagnosis: generalized weakness/debility Height/Weight Height (Feet): 5 Height (Inches): 1.00 Weight (Pounds): 135 Weight (Ounces): 0.0 Precautions Precautions/Isolations: Fall Prevention, Standard Precautions Weight Bear Status Weight Bearing Restriction: Touch Toe Bearing Location Restriction: R LE Referral Physician: Carlos Reason for Referral: Evaluation/Treatment Medical History Pertinent Medical History: DM, HTN, Hypothroidism Additional Medical History osteoporosis Current History fall from step ladder changing a light bulb Reviewed History: Yes Social History Home: Apartment Current Living Status: Alone Entry Into Home: Level Entry Prior/Core FIM Prior Level of Function Functional [place] Measure 0=Not Assessed/NA 4=Minimal Assistance 1=Total Assistance 5=Supervision or Setup 2=Maximal Assistance 6=Modified [place] 3=Moderate Assistance 7=Complete [place] Bed Mobility: 7 Transfers (B,C,W/C) (FIM): 7 Gait: 7 Locomotion: 7 PT Evaluation-Current Subjective Patient is very lethargic. Agrees to PT. Pain Numeric Pain Scale: 10-Worst Possible Pain Location: Right Location Body Site: Knee Pain Description: Acute, Sharp Pt/Family Goals return to home with family support Objective Patient Orientation: Normal For Age Problem Solving: Fair ROM/Strength ROM Lower Extremities left LE WNL right LE limited with knee flexion and extension due to pain Strenght Lower Extremities left knee flexion/extension 4/5; hip flexion 4/5; ankle dorsi/plantarflexion 4/5 right LE NT Integumentary/Posture Integumentary refer to nursing notes Bowel Incontinence: No Bladder Incontinence: No Posture WNL Neuromuscular (Tone, Coordination, Reflexes) slightly diminished coordination due to lethargy and TTWB right LE Sensory Vision: Wears Glasses Hearing: Functional Sensation Right Lower Extremit: Intact Sensation Left Lower Extremity: Intact Transfers Functional [place] Measure 0=Not Assessed/NA 4=Minimal Assistance 1=Total Assistance 5=Supervision or Setup 2=Maximal Assistance 6=Modified [place] 3=Moderate Assistance 7=Complete [place] Transfers (B, C, W/C) (FIM): 4 Scootin Rollin Supine to/from Sit: 4 Sit to/from Stand: 4 Gait Mode of Locomotion: Walk Anticipated Mode of Locomotion: Walk Gait (FIM): 1 Distance (FIM): 1=up to 49 ft Distance: 25' Gait Level of Assist: 4 Gait Persons Needed: 1 Gait Assistive Device: FWW Comments/Gait Description difficulty maintaining TTWB right LE; prefers to "hop" with FWW Balance Sitting Static: Normal Sitting Dynamic: Normal Standing Static: Fair Standing Dynamic: Fair Assessment/Needs 66 y.o. female, with limitations in functional mobility due to TTWB right LE, will benefit from skilled PT to address functional strength and mobility to safely return to home or care facility at maximum LOF. Rehab Potential: Good PT Halfway Goals Halfway Goals PT Halfway Goals Time Frame: Oct 20, 2016 Transfers (B,C,W/C) (FIM): 5 Gait (FIM): 3 Gait distance (FIM): 3=150 ft Gait Level of Assist: 4 Gait Assistive Device: FWW PT Plan Problem List Problem List: Activity Tolerance, Functional Strength, Balance, Gait, ROM Treatment/Plan Treatment Plan: Continue Plan of Care Treatment Plan: Bed Mobility, Education, Functional Activity Luis, Functional Strength, Gait, Safety, Therapeutic Exercise, Transfers Treatment Duration: Oct 20, 2016 Frequency: At least 5 to 7 days/Wk (IRF) Estimated Hrs Per Day: .5 hour per day Patient and/or Family Agrees t: Yes Safety Risks/Education Patient Education: Safety Issues (TTWB right LE) Teaching Recipient: Patient, Family Teaching Methods: Demonstration, Discussion Response to Teaching: Verbalize Understanding, Return Demonstration Discharge Recommendations Therapy D/C Recommendations: Acute Rehab Time/GCodes Time In: 910 Time Out: 930 Total Billed Treatment Time: 20 Total Billed Treatment 1 visit EVMod 20 min ALANIS CASILLAS PT Oct 06, 2016 10:00
[2016-10-06] MEDS ORDERED: DIPH25TA65 PO (10:34)
[2016-10-06] MEDS ORDERED: HYDR12.5 PO (10:34)
[2016-10-06] MEDS ORDERED: TIMO5DRO27 OU (10:34)
[2016-10-06] MEDS ORDERED: BIMA2.5D4 OU (10:34)
[2016-10-06] MEDS ORDERED: DOCU-143 PO (10:34)
[2016-10-06] MEDS ORDERED: FISH1CAP15 PO (10:34)
[2016-10-06] MEDS ORDERED: CALC-901 PO (10:34)
[2016-10-06] MEDS ORDERED: METF-478 PO (10:34)
[2016-10-06] MEDS ORDERED: MELA1TAB27 PO (10:34)
[2016-10-06] MEDS ORDERED: METF500T8 PO (10:34)
[2016-10-06] MEDS ORDERED: DIVA500T15 PO (10:34)
[2016-10-06] MEDS: POLYETHYLENE GLYCOL 17 GM (MIRALAX) PACK PO SCH (10:49)
[2016-10-06] MEDS ORDERED: HYDR-3820 PO (10:57)
[2016-10-06] MEDS ORDERED: IBUP-2055 PO (10:57)
[2016-10-06] MEDS ORDERED: ENOX40DI8 SC (10:57)
[2016-10-06] MEDS ORDERED: POLY17PO23 PO (10:57)
[2016-10-06] MEDS ORDERED: INSULIN ASPART 1000 UNIT/10 ML SQ SCH (11:00)
[2016-10-06] MEDS ORDERED: metFORMIN XR 500 MG (GLUCOPHAGE XR) TAB PO SCH (17:00)
[2016-10-06] MEDS ORDERED: SERTRALINE 50 MG (ZOLOFT) TABLET PO SCH (21:00)
[2016-10-06] MEDS ORDERED: PRAVASTATIN 40 MG TABS PO SCH (21:00)
[2016-10-06] MEDS ORDERED: LISINOPRIL 40 MG TAB PO SCH (21:00)
[2016-10-06] MEDS ORDERED: inSUlin DETERMIR 1000 UNITS/10 ML VIAL (LEVEMIR) SQ SCH (21:00)
[2016-10-06] MEDS ORDERED: DIVALPROEX 500 MG DELAYED RELEASE (DEPAKOTE) TAB PO SCH (21:00)
[2016-10-06] MEDS ORDERED: OLANZapine 5 MG (ZyPREXA) TAB PO SCH (21:00)
[2016-10-07] MEDS ORDERED: metFORMIN XR 500 MG (GLUCOPHAGE XR) TAB PO SCH (07:00)
--- NOTE | 2016-10-10 13:46 | Discharge Summary ---
Diagnosis/Chief Complaint Date of Admission 10/05/2016 Date of Discharge 10/06/2016 Discharge Date: Oct 06, 2016 Discharge Time: 12:00 Admission Diagnosis Admission Diagnosis Right lateral tibial plateau fracture Discharge Diagnosis Right lateral tibial plateau fracture Reason Hospital Visit This 66 year old female fell on 10/02/2016 and fractured the right tibial plateau and comes in for surgery. Discharge Summary Procedures: ORIF of right lateral tibial plateau Consultations none Discharge Physical Examination Allergies: Coded Allergies: No Known Drug Allergies (Unverified , 11/26/15) Vitals & I&Os Vital Signs Date Time Temp Pulse Resp B/P (MAP) Pulse Ox O2 Delivery O2 Flow Rate FiO2 10/06/16 08:00 97.5 93 12 103/60 100 Nasal Cannula 3.00 General Appearance: Oriented X3 HEENT: Atraumatic Cardiovascular: Regular Rate Abdominal: Normal Bowel Sounds Extremities: No Clubbing, Other (Swelling and slight effusion right knee) Skin: No Rashes, Other (healing incision over right knee) Neuro: Strength at 5/5 X4 Ext Psych/Mental Status: Mental Status NL Hospital Course She came to the OR as an outpatient and had ORIF of the right lateral tibial plateau. She received 24 hours of IV ancef. She was placed on Lovenox and SCDs for DVT prophylaxis. She had good wound healing. She moved slowly with PT and acute inpatient rehab was consulted and she was discharged and readmitted to acute rehab on 10/06/2016. Discussion & Recommendations She is transferred to rehab Toe touch weight bearing right leg Discharge Condition at discharge stable Instructions to patient/family Please see electonic discharge instructions given to patient. Discharge Medications Reviewed and agree with Discharge Medication list on patient's Discharge Instruction sheet Clinical Quality Measures DVT/VTE Risk/Contraindication: Risk Factor Score Per Nursin RFS Level Per Nursing on Admit: 4+=Very High BROOKE ANDRADE MD Oct 10, 2016 13:46
--- NOTE | 2016-10-19 16:26 | OPERATIVE REPORT ---
DATE OF SERVICE: 10/05/2016 PREOPERATIVE DIAGNOSIS: Right displaced lateral tibial plateau fracture. POSTOPERATIVE DIAGNOSIS: Right displaced lateral tibial plateau fracture. PROCEDURE: Open reduction internal fixation of right lateral tibial plateau fracture. SURGEON: Brooke Gonzalez MD PROJECT ENGINEER CHEMICALS: Elliott Johnson PA-C. PROJECT ENGINEER CHEMICALS SURGEON DUTIES: Patient positioning, retraction, wound closure, application of sterile dressings, use of internal fixation devices and instrumentation, use of assist and tourniquet as medically indicated. ANESTHESIA: General with ultrasound guided femoral nerve block, use of ultrasound guided peripheral nerve blocks as medically indicated for postoperative pain control and an anesthesiologist and [employer] were consulted for their expertise in placement of the block. COMPLICATIONS: None. SPECIMENS: None. BLOOD LOSS: Less than 50 mL. INDICATION: This lady had fallen several days ago and sustained a tibial plateau fracture and comes in for surgical repair. IMPLANTS: Synthes 4 hole proximal lateral tibial locking plate and screws with a total of 5 locking screws in the proximal fragment, two 3.5 mm bicortical screws in the distal fragment and then 2 locking screws from the distal fragment into the proximal medial tibial plateau, which were locking screws. PROCEDURE IN DETAIL: After informed consent, the patient was transported to the operating room. She was placed on the operating table in supine position. General anesthesia was induced. Tourniquet placed on the right thigh. The right lower extremity was prepped with Chloraprep and draped in the sterile fashion. The right lower extremity was exsanguinated, the tourniquet was inflated. A lateral incision was made over the lateral tibial plateau and secured out through subcutaneous tissues down to the crest of the tibia where the periosteum was incised and elevated from the lateral tibia all the way up to the lateral tibial plateau. The split in the lateral plateau was noted. Osteotome was made to create a bone window in the layer of the lateral tibial plateau and then the C-arm was brought in. A tamp was inserted and the articular fragment, which was displaced and depressed, was elevated up with the tamp and a mallet under C-arm guidance in the AP and lateral views. It was placed all the way up to the anatomic position in the joint surface. This area then was backfilled with 3 mL of Synthes Norian, which was mixed on the back table for 1 minute and injected using the syringe and large canula all the way up to under the depressed joint fragment and backfilled all the way to the bone window. It was then compressed until it hardened and under C-arm guidance, this did not go into the joint. Then the shortest tibial plateau plate was chosen, it was placed over the lateral tibial plateau and a single 3.5 mm screw was placed in the oblong screw hole. Next, the drill guide was inserted in the most proximal tibial plateau screw holes and a drill bit was drilled across the lateral plateau beneath the fragment that had been elevated and engaged in the medial plateau. A locking screw was placed proximally and under the C-arm this appeared to be satisfactory. Then a total of 4 more locking screws were placed in the proximal fragment and then a second 3.5 screw was placed in the distal fragment followed by the 2 "kickstand screws" which were locking screws going from the distal fragment up to the medial fragment. The position looked satisfactory. All the screws got good hold on the bone. The joint surface was in near anatomic alignment. Hard copy AP and lateral views were saved to the PAC system. The wound was thoroughly irrigated. The anterior compartment muscles were repaired back to the periosteum and the crest of the tibia with interrupted #1 Vicryl, subcutaneous tissues were closed with running 2-0 Vicryl followed by subcuticular 3-0 Caprosyn on the skin. Steri-strips were applied. The incision area was infiltrated with 0.5% Bupivacaine 30 mL along with a portion of that injected into the joint after withdrawing about 20 mL of bloody effusion from the joint. Sterile dressing was applied. The tourniquet was deflated. She then was transported to the recovery room in stable condition. Job ID: [id number] DocumentID: [id number] Dictated Date: 10/05/2016 15:06:05 Hydroblaster Date: 10/06/2016 08:21:55 Dictated By: BROOKE GONZALEZ MD <Dictated by BROOKE GONZALEZ MD> <Electronically signed by BROOKE GONZALEZ MD> 10/10/16 [id number]
== END 2016-10-06 11:04 ==
LOC: SDC 11:35 → SURG 13:40 → UNDOADMOB 13:40 → SURG 13:40 → EDSTATUS 14:00 → 4TH 16:21 → SURG 16:21 → UNDODISOB 10-06 11:04 → SDC 10-06 11:04
PROVIDERS: ATTEND Orthopaedic Surgery
DX: S82.141A Displaced bicondylar fracture of right tibia, initial encounter for closed fracture (principal); I10 Essential (primary) hypertension; E78.5 Hyperlipidemia, unspecified; E11.9 Type 2 diabetes mellitus without complications; F41.9 Anxiety disorder, unspecified; F32.9 Major depressive disorder, single episode, unspecified; E07.9 Disorder of thyroid, unspecified; Z79.899 Other long term (current) drug therapy; W19.XXXA Unspecified fall, initial encounter
CPT/HCPCS: 82962; 87081

== ENCOUNTER 2016-10-06 10:21 | Inpatient (IN) | payer MEDICARE, OTHER ==
[~2016-10-06] VITALS: Ht 154.9 cm; Wt 64.1 kg
[2016-10-06] MEDS ORDERED: TIMO5DRO27 OU (10:34)
[2016-10-06] MEDS ORDERED: FISH1CAP15 PO (10:34)
[2016-10-06] MEDS ORDERED: DIPH25TA65 PO (10:34)
[2016-10-06] MEDS ORDERED: METF-478 PO (10:34)
[2016-10-06] MEDS ORDERED: DOCU-143 PO (10:34)
[2016-10-06] MEDS ORDERED: DIVA500T15 PO (10:34)
[2016-10-06] MEDS ORDERED: BIMA2.5D4 OU (10:34)
[2016-10-06] MEDS ORDERED: HYDR12.5 PO (10:34)
[2016-10-06] MEDS ORDERED: METF500T8 PO (10:34)
[2016-10-06] MEDS ORDERED: MELA1TAB27 PO (10:34)
[2016-10-06] MEDS ORDERED: CALC-901 PO (10:34)
[2016-10-06] MEDS ORDERED: POLY17PO23 PO (10:57)
[2016-10-06] MEDS ORDERED: ENOX40DI8 SC (10:57)
[2016-10-06] MEDS ORDERED: IBUP-2055 PO (10:57)
[2016-10-06] MEDS ORDERED: HYDR-3820 PO (10:57)
[2016-10-06] MEDS ORDERED: inSUlin ASPART (NovoLOG) 1 UNIT/0.01 ML (CHARGE PER UNIT) SC SCH (11:00)
--- NOTE | 2016-10-06 11:39 | Physical Therapy Evaluation ---
PT Evaluation-General Medical Diagnosis Admission Date 10/06/16 Medical Diagnosis: Tibial plateau fx Onset Date: Oct 05, 2016 Therapy Diagnosis Therapy Diagnosis: weakness; abn gait Height/Weight Height (Feet): 5 Height (Inches): 1.00 Weight (Pounds): 135 Weight (Ounces): 0.0 Precautions Precautions/Isolations: Standard Precautions Weight Bear Status Weight Bearing Restriction: Touch Toe Bearing Location Restriction: R LE Referral Physician: Vikash Reason for Referral: Evaluation/Treatment Medical History Pertinent Medical History: DM, HTN, Hypothroidism Additional Medical History breast CA with mastectomy; osteoporosis Current History Pt was standing on a ladder, fell and sustained above noted fracture. Post ORIF and is TTWB right LE. Reviewed History: Yes Social History Home: Apartment Current Living Status: Alone Entry Into Home: Level Entry Prior/Core FIM Prior Level of Function Functional [place] Measure 0=Not Assessed/NA 4=Minimal Assistance 1=Total Assistance 5=Supervision or Setup 2=Maximal Assistance 6=Modified [place] 3=Moderate Assistance 7=Complete [place] Bed Mobility: 7 Transfers (B,C,W/C) (FIM): 7 Gait: [address]; ambulates in the community. Active. PT Evaluation-Current Subjective Agrees to PT. Reports she is anxious to start moving and get better. Pain Numeric Pain Scale: 8 Location: Right Location Body Site: Knee (tibial plateau area) Pain Description: Ache Objective Patient Orientation: Person, Place, Time, Situation Problem Solving: Fair ROM/Strength ROM Lower Extremities WNL; painful on the right but functional range noted. Strenght Lower Extremities Left LE WFL; Right LE not tested due to pain. Integumentary/Posture Integumentary Refer to nursing notes. Bowel Incontinence: No Bladder Incontinence: No Posture Normal and symmetrical Neuromuscular (Tone, Coordination, Reflexes) No noted functional deficits. Sensory Vision: Wears Glasses Hearing: Hearing Aid/Aides Hand Dominance: Right Sensation Right Lower Extremit: Intact Sensation Left Lower Extremity: Intact Transfers Functional [place] Measure 0=Not Assessed/NA 4=Minimal Assistance 1=Total Assistance 5=Supervision or Setup 2=Maximal Assistance 6=Modified [place] 3=Moderate Assistance 7=Complete IndependenceIRFPAI Quality Coding Scale 6 Independent with activity with or without an assistive device 5 Patient requires set up or clean up by helper. Patient completes activity by themselves 4 Supervision or touching assist (CGA). [place] provide cues , steadying assist 3 The helper provides less than half the effort to complete the activity 2 The helper provides more than half the effort to complete the activity 1 Dependent. The helper does all the effort to complete an activity 7 Patient refused to complete or attempt activity 9 The patient did not perform the activity before the current illness or injury 88 Not attempted due to Medical conditions or safety concerns Transfers (B, C, W/C) (FIM): 3 Roll Left to Right (QC): 4 Supine to/from Sit: 3 (asssit with legs in out of bed) Sit to/from Stand: 4 (CGA to steady her) bed t/f WC(FIM only if WC use): 4 Sit to Lying (QC): 3 (assist with legs) Lying to Sitting/Side of Bed(Q: 3 (Assist with legs) Sit to Stand (QC): 4 Chair/[id number] Xfer(QC): 4 Car Transfer (QC): 88 Takes extra time with transfers and requires cues to sequence. Gait Does the Patient Walk?: Yes Mode of Locomotion: Walk Anticipated Mode of Locomotion: Walk Gait (FIM): 2 Distance (FIM): 1=up to 49 ft Walk 10 feet (QC): 3 Walk 50 ft with 2 Turns(QC): 88 Walk 150 ft (QC): 88 Walking 10ft/uneven surface-QC: 88 Gait Assistive Device: FWW Comments/Gait Description TTWB status but currently, pt is hopping, per her choice Wheelchair Training Does the Pt Use a Wheelchair?: No Stairs Stairs (FIM): 0 1 Step (curb) (QC): 88 4 Steps (QC): 88 12 Steps (QC): 88 If not tested on admit;explain Unsafe to attempt as pt is groggy and not steady enough to attempt to hop up a step Balance Sitting Static: Good Sitting Dynamic: Good Standing Static: Fair Standing Dynamic: Fair Picking up an Object (QC): 88 Treatment Hopping 10 ft x 2 with FWW; pt is TTWB but chose to hop at this time. Close CGA for safety and to steady her. Pt up in chair with legs elevated post treatment. Assessment/Needs Post fall with above noted fracture and repair. Pt is limited in her ability to mobilize and will benefit from skilled PT intervention to work on functional strength and mobility to allow her to care for herself at home alone. She has deficits with transfers and gait as well as functional balance with slight strength deficits right LE noted as well. Rehab Potential: Good PT Short Term Goals Short Term Goals Time Frame: Oct 13, 2016 Transfers (B,C,W/C) (FIM): 5 Gait (FIM): 2 Distance (FIM): 3=967-07 ft Gait Level of Assist: 4 Gait Assistive Device: FWW PT Intermediate Goals Intermediate Goals PT Marine Photographer Goals Time Frame: Oct 24, 2016 Transfers (B,C,W/C) (FIM): 6 Sit to Lying (QC): 6 Lying-Sitting on Side/Bed(QC): 6 Sit to Stand (QC): 6 Roll Left to Right (QC): 6 Chair/[id number]-Gztab Xfer(QC): 6 Car Transfer (QC): 5 Does the Patient Walk: Yes Gait (FIM): 5 Gait distance (FIM): 6=179-51 ft Distance: 50 ft household distance Walk 10 feet (QC): 5 Walk 10ft-Uneven Surface(QC): 5 Walk 50ft with 2 Turns (QC): 5 Walk 150 ft (QC): 88 Gait Assistive Device: FWW Does the Pt use WC or Scooter?: No Stairs (FIM): 2 # of Steps: 1 Picking up an Object (QC): 88 Goals are set for pt to be a household level without a level entrance and mod indep in her home. PT Plan Problem List Problem List: Activity Tolerance, Functional Strength, Safety, Balance, Gait, Transfer, Bed Mobility Treatment/Plan Treatment Plan: Continue Plan of Care Treatment Plan: Bed Mobility, Education, Functional Activity Luis, Functional Strength, Group Therapy, Gait, Safety, Therapeutic Exercise, Transfers Treatment Duration: Oct 24, 2016 Frequency: At least 5 to 7 days/Wk (IRF) Estimated Hrs Per Day: 1.5 hours per day Patient and/or Family Agrees t: Yes Safety Risks/Education Patient Education: Gait Training, Safety Issues Teaching Recipient: Patient Teaching Methods: Demonstration, Discussion Response to Teaching: Reinforcement Needed Discharge Recommendations Therapy D/C Recommendations: Physical Therapy Home Care Time/GCodes Time In: 1105 Time Out: 1135 Total Billed Treatment Time: 30 Total Billed Treatment visit EVL 15 FA 15 KALIA KITCHEN PT Oct 06, 2016 11:38
--- OUTSIDE RECORDS SUMMARY | 2016-10-06 11:59 | XMS REPORT | Continuity of Care Document ---
Author Author [employer] Organization [facility] Address Unknown Phone Unavailable Care Team Providers Care Band Sawyer Name Role Phone [employer] Unavailable Unavailable Problems Problem Status Onset Date Classification Date Reported Comments Source Major depressive disorder (disorder) 11/06/2015 Diagnosis 11/10/2015 [facility] Major depressive disorder (disorder) Active Problem 11/09 [facility] Medications Medication Details Route Status Patient Instructions Ordering Provider Order Date Source No Known Medications No known medications Active [facility] Allergies, Adverse Reactions, Alerts Immunizations Immunization Date Given Site Status Last Updated Comments Source No data available for this section No data available for this section [facility]. Results Vital Signs Encounters Location Location Details Encounter Type Encounter Number Reason For Visit Attending Provider ADM Date DC Date Status Source [facility] [id number] Inpatient [id number] Hussain Bruno 11/05/2015 11/06/2015 Active [facility] Procedures Procedure Code Date Perfomer Comments Source right mastectomy [facility] Plan of Care Social History Assessment and Plan Family History Value Date Source Advance Directives Order Name Results Value Date Source
[2016-10-06] MEDS ORDERED: ONDANSETRON 4 MG (ZOFRAN) ORAL DISSOLVE TAB PO PRN (12:00)
[2016-10-06] MEDS ORDERED: PATIENT MAY USE OWN MED,SINGLE MED OP SCH (12:30)
--- NOTE | 2016-10-06 13:14 | ST Cognitive Linguistic Eval ---
Speech Evaluation-General Medical Diagnosis Tibial plateau fx Onset Date: Oct 05, 2016 Therapy Diagnosis Therapy Diagnosis: Cognitive Linguistic Skills WNL Precautions Precautions/Isolations: Standard Precautions Referral Referring Physician: Dr. Levar Suh Reason for Referral: Evaluation/Treatment Cognitive Assessment Medical History Pertinent Medical History: DM, HTN, Hypothroidism Reviewed History: Yes Social History Current Living Status: Alone Speech PLF-Current Status Prior Level of Function The patient denied deficits with cognition, speech, or language prior to admission to the hospital Subjective The patient was recently admitted to [facility] with a diagnosis of a tibia fracture. The patient greeted the clinician appropriately and was agreeable to participation in the cognitive assessment. Language Eval: Auditory Comprehends Simple Yes/No Ques: Functional Indent/Objects Multiple Clement: Functional Ident/Pics in Multiple Clement: Functional Follows 1-Step Commands: Functional Follows Complex Directions: Functional Follows General Conversations: Functional Language Eval: Verbal Language Completes Spontaneous Greeting: Functional Produces Auto, Serial Info: Functional Imitates Simple Words/Phrases: Functional Word Finding: Functional Requests Basic Needs: Functional States Basic Personal Info: Functional Expresses Complex Ideas: Functional Cognitive Patient Orientation The patient was independently oriented to month, day of week, date, and year. Objective Cognitive Domain Attention: WNL Memory: WNL Problem Solving: Functional Executive Functions: WNL Objective Impression The patient displayed cognitive linguistic skills grossly within normal limits and appropriate for completion of ADL's. Communication/Social Cognition Comprehension: 5 Expression: 6 Social Interaction: 5 Problem Solvin Memory: 5 Speech Patient Assess Expression of Ideas/Wants: Expression (4) Understanding [place] Content: Understands (4) Brief Interview-Mental Status: Yes Repetition of Three Words: Three (3) Temporal Orientation: Year: Correct (3) Temporal Orientation: Month: Accurate within 5 days(2) Temporal Orientation: Day: Correct (1) Recall : Wear to say "Sock": Yes, no cue required (2) Recall : Color: Yes, no cue required (2) Recall : Bed: Yes, no cue required (2) Speech-Plan Treatment Plan Speech Therapy Treatment Plan: Discontinue ST (Evaluation, only.) Evaluation, only. Frequency: Modified Program (IRF) Estimated Hrs Per Day: Other (Evaluation, only.) Rehab Potential: Good Safety Risks/Education Teaching Recipient: Patient Teaching Methods: Discussion Response to Teaching: Verbalize Understanding Education Topics Provided: Plan of Care, Results, Recommendations Time Speech Therapy Time In: 12:20 Speech Therapy Time Out: 12:35 Total Billed Time: 15 Billed Treatment Time 1, DAI RIVERA Oct 06, 2016 13:14
--- NOTE | 2016-10-06 13:16 | PM&R Post Admission Assessment ---
Post Admission Physician Asses The preadmission screen agrees with the post admission assessment that the patient is a good candidate for inpatient rehabilitation. The patient will have a comprehensive program of inpatient rehabilitation with a goal of maximizing level of functional independence prior to discharge home with [facility]. The patient will have PT/OT ninety minutes per day, each discipline , five days a week for gait, strengthening, conditioning, balance, ADLs, any patient/family/caregiver training as necessary. Speech therapy to do cognitive assessment and treat as indicated. Rehabilitation nursing to assist with bowel, bladder, skin, wound care, medication administration, pain management. Hyperion Analyst to assist with discharge planning, community reentry. LO[employer]ox SubCut for DVT prophylaxis. She appears to be well motivated to participate in three hours of therapy a day. She should be able to tolerate three hours of therapy a day from a medical and surgical standpoint. She should benefit from the three hours of therapy a day. She has a reasonable discharge plan, reasonable discharge rehabilitation goals and a supportive family. She has various comorbidities that need to be closely monitored with medications and treatments adjusted on a daily basis as needed. These include: IDDM HTN Glaucoma UTI with fever on antibiotics Barriers to discharge for this patient who had been independent prior to this are for her to be modified independent to supervision for ADLs and mobility skills prior to discharge home with [facility] and family to assist, so as to lessen the burden of the caregivers. Risks for this patient include: 1. Fall 2. Fracture 3. DVT 4. Pulmonary embolism 5. Wound infection 6. Skin breakdown 7. Contractures 8. Poorly controlled pain 9. Urinary retention 10. Recurrent UTI 11. Respiratory infection 12. Aspiration 14. Poorly controlled HTN 15. Poorly controlled DM Estimated Length of Stay: 14 days Prognosis: Rehab prognosis appears good for goal of discharge home with [facility] and Family modified independent to supervision for ADLs and mobility skills focusing on the W/Clevel of function due to TTWB status RLE. LEVON ORTEGA MD Oct 06, 2016 13:16
--- NOTE | 2016-10-06 13:25 | Occupational Therapy Eval ---
OT Evaluation-General/PLF Medical Diagnosis Admission Date Oct 06, 2016 at 11:05 Medical Diagnosis: Tibial plateau fx Onset Date: Oct 02, 2016 Therapy Diagnosis Therapy Diagnosis: WEAKNESS, DECR SELC CARE, DECR ACTIV MAYA, DECR FUNCT MOBILITY Height/Weight Height (Feet): 5 Height (Inches): 1.00 Weight (Pounds): 135 Weight (Ounces): 0.0 Precautions Precautions/Isolations: Standard Precautions Weight Bear Status Weight Bearing Restriction: Touch Toe Bearing Location Restriction: R LE Referral Physician: Vikash Referral Reason: Evaluation/Treatment Medical History Pertinent Medical History: DM, GERD, HTN, Hypothroidism Additional Medical History Hx diverticulosis. Hard of hearing, bilat hearing aids. Breast CA with mastectomy 11 years ago. Osteoporosis. Anxiety, depression. Current History Fell off a ladder at home and sustained fx. ORIF on 10-05-16 with TTWB on R. Reviewed History: Yes Social History Home: Apartment ([place] in [place]) Current Living Status: Alone Entry Into Home: Level Entry ADL-Prior Level of Function ADL PLOF Comments Pt reported that she has been able to manage all of her basic ADLs prior to fall. 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 Pain rated 6-7/10, described as sore throughout R leg up to thigh. Appearance Oriented, a little groggy Mental Status/Objective Patient Orientation: Person, Place, Time, Situation Current Glasses/Contacts: Yes Hearing Aids: Yes (bilat) Dentures/Partials: No Hand Dominance: Right Upper Extremity ROM grossly WFL bilat Upper Extremity Coordination Grossly intact Upper Extremity Sensation No problems reported Upper Extremity Strength grossly 4/5 bilat. A little trouble following instructions for muscle testing ADL-Treatment Functional [place] Measure 0=Not Assessed/NA 4=Minimal Assistance 1=Total Assistance 5=Supervision or Setup 2=Maximal Assistance 6=Modified [place] 3=Moderate Assistance 7=Complete IndependenceIRFPAI Quality Coding Scale 6 Independent with activity with or without an assistive device 5 Patient requires set up or clean up by helper. Patient completes activity by themselves 4 Supervision or touching assist (CGA). [place] provide cues , steadying assist 3 The helper provides less than half the effort to complete the activity 2 The helper provides more than half the effort to complete the activity 1 Dependent. The helper does all the effort to complete an activity 7 Patient refused to complete or attempt activity 9 The patient did not perform the activity before the current illness or injury 88 Not attempted due to Medical conditions or safety concerns Eating (FIM): 5 (setup. Able to get food to mouth without difficulty) Eating (QC): 5 Upper Body Dressing (FIM): 5 (setup, including bra and shirt) Upper Body Dressing (QC): 5 Lower Body Dressing (FIM): 2 (Mod assist sit to stand, cues for hand placement. Help to get pants and slacks over R foot, a little help with socks sticking to pants. Mod assist to maintain standing while she helped some to pull pants up. Able to get slipper sock off L foot and back on with difficulty but unable to manage R sock. FWW) Lower Body Dressing (QC): 2 On/Off Footwear (QC): 3 Toileting (FIM): 1 (Two person assist to manage clothing and standing. Pt was able to wipe. BS) Toileting Hygiene (QC): 1 (two person) Toilet/Commode Transfer (FIM): 2 (Max assist stand pivot transfer to [facility]. Pt groggy and had some difficulty maintaining balance sequencing transfer) Toilet Transfer (QC): 2 Pt was left up in recliner, legs elevated with pillow underneath, lunch set up and all needs met. Education OT Patient Education: Modified ADL techniques, Progress toward Goal/Update tx plan, Purpose of tx/functional activities, Reviewed precautions, Rehab process, Safety issues, Transfer techniques Teaching Recipient: Patient Teaching Methods: Demonstration, Discussion Response to Teaching: Verbalize Understanding, Return Demonstration, Reinforcement Needed OT Short Term Goals Short Term Goals Time Frame: Oct 13, 2016 Lower Body Dressing(FIM): 4 Toileting(FIM): 4 Toilet/Commode Transfer(FIM): 5 Additional Short Term Goals: 1-Demonstrate ADL Tasks, 2-Verbalize Understanding , 3-ImproveStrength/Luis 1=Demonstrate adherence to instructed precautions during ADL tasks. 2=Patient will verbalize/demonstrate understanding of assistive devices/ modifications for ADL. 3=Patient will improve strength/tolerance for activity to enable patient to perform ADL's. OT Electronic Organ Technician Goals Electronic Organ Technician Goals Time Frame: Oct 24, 2016 Eating (FIM): 6 Eating (QC): 6 Groomin Oral Hygiene (QC): 6 Bathing(FIM): 6 Shower/Bathe Self (QC): 6 Upper Body Dressing(FIM): 6 Upper Body Dressing (QC): 6 Lower Body Dressing(FIM): 6 Lower Body Dressing (QC): 6 On/Off Footwear (QC): 6 Toileting(FIM): 6 Toileting Hygiene (QC): 6 Toilet/Commode Transfer(FIM): 6 Toilet/Commode Transfer (QC): 6 Tub Transfer(FIM): 6 Shower Transfer(FIM): 6 Additional Goals: 1-Demonstrate ADL Tasks, 2-Verbalize Understanding, 3- ImproveStrength/Luis 1=Demonstrate adherence to instructed precautions during ADL tasks. 2=Patient will verbalize/demonstrate understanding of assistive devices/ modifications for ADL. 3=Patient will improve strength/tolerance for activity to enable patient to perform ADL's. OT Education/Plan Problem List/Assessment Assessment: Decreased Activ Tolerance, Decreased UE Strength, Dependent Transfers, Impaired Funct Balance, Impaired Self-Care Skills Pt would benefit from skilled OT to increase her independence in basic self care to allow her to safely return to her home and to decrease caregiver burden Discharge Recommendations Plan/Recommendations: Continue POC Barriers to Progress pain Target Placement home with family support Treatment Plan/Plan of Care Treatment,Training & Education: Yes Patient would benefit from OT for education, treatment and training to promote independence in ADL's, mobility, safety and/or upper extremity function for ADL' s. Plan of Care: ADL Retraining, Functional Mobility, Group Exercise/Act as Ind ( education, exercise, activ maya, funct mobility, problem solving, socialization) , UE Funct Exercise/Act, UE Neuromus Re-Ed/Coord Treatment Duration: Oct 24, 2016 Frequency: At least 5 to 7 days/Wk (IRF) Estimated Hrs Per Day: 1.5 hours per day Agreement: Yes Rehab Potential: Good Time/GCodes Start Time: 11:40 Stop Time: 12:20 Total Time Billed (hr/min): 40 Billed Treatment Time visit, 10 minutes evaluation moderate intensity, 30 minutes ADL KASSIE DUMONT OT Oct 06, 2016 13:25
--- NOTE | 2016-10-06 14:47 | Physical Therapy Daily Note ---
PT Daily Note-Current Subjective Patient in wheelchair in therapy gym, just got through with group therapy. Agrees to PT, has pain of 6/10 in right leg. Appearance Patient BTB post tx with nurse call, phone, tray, all needs met. Mental Status Patient Orientation: Person, Place, Situation Transfers Functional [place] Measure 0=Not Assessed/NA 4=Minimal Assistance 1=Total Assistance 5=Supervision or Setup 2=Maximal Assistance 6=Modified [place] 3=Moderate Assistance 7=Complete IndependenceIRFPAI Quality Coding Scale 6 Independent with activity with or without an assistive device 5 Patient requires set up or clean up by helper. Patient completes activity by themselves 4 Supervision or touching assist (CGA). [place] provide cues , steadying assist 3 The helper provides less than half the effort to complete the activity 2 The helper provides more than half the effort to complete the activity 1 Dependent. The helper does all the effort to complete an activity 7 Patient refused to complete or attempt activity 9 The patient did not perform the activity before the current illness or injury 88 Not attempted due to Medical conditions or safety concerns Transfers (B, C, W/C) (FIM): 4 Scootin Rollin Supine to/from Sit: 4 Sit to/from Stand: 4 Bed to/from Chair: 4 Patient min assist for supine to sit and CGA with stand pivot transfers. She needs cues for safety and hand placement. She is compliant with her weight bearing status. Weight Bearing Weight Bearing Restriction: Touch Toe Bearing Location Restriction: R LE Gait Training Gait (FIM): 1 Distance: 3' Gait Level of Assist: 4 Gait Persons Needed: 1 Gait Assistive Device: FWW Patient ambulated just a few feet from the wheelchair to the bed, compliant with weight bearing status, antalgic. Exercises Standin way Ex=Flex, Abd, Ext Standing Reps: 10 NuStep Minutes: 10 NuStep Workload: 1 (no resistance to comply with weight bearing status, ROM) Treatments bed mobility and transfers, ambulation, functional strengthening and ROM Assessment Current Status: Fair Progress Patient's O2 stayed at 95-96% during treatment PT Short Term Goals Short Term Goals Time Frame: Oct 13, 2016 Gait (FIM): 2 Distance (FIM): 2=502-87 ft Gait Level of Assist: 4 Gait Assistive Device: FWW PT Senior Care Goals Senior Care Goals PT Senior Care Goals Time Frame: Oct 24, 2016 Transfers (B,C,W/C) (FIM): 6 Sit to Lying (QC): 6 Lying-Sitting on Side/Bed(QC): 6 Sit to Stand (QC): 6 Roll Left to Right (QC): 6 Chair/Its-lu-Urdsa Xfer(QC): 6 Car Transfer (QC): 5 Does the Patient Walk: Yes Gait (FIM): 5 Gait distance (FIM): 5=312-38 ft Distance: 50 ft household distance Walk 10 feet (QC): 5 Walk 10ft-Uneven Surface(QC): 5 Walk 50ft with 2 Turns (QC): 5 Walk 150 ft (QC): 88 Gait Assistive Device: FWW Does the Pt use WC or Scooter?: No Stairs (FIM): 2 # of Steps: 1 Picking up an Object (QC): 88 PT Plan Problem List Problem List: Activity Tolerance, Functional Strength, Safety, Balance, Gait, Transfer, Bed Mobility, ROM Treatment/Plan Treatment Plan: Continue Plan of Care Treatment Plan: Bed Mobility, Education, Functional Activity Luis, Functional Strength, Group Therapy, Gait, Safety, Therapeutic Exercise, Transfers Treatment Duration: Oct 24, 2016 Frequency: At least 5 to 7 days/Wk (IRF) Estimated Hrs Per Day: 1.5 hours per day Patient and/or Family Agrees t: Yes Safety Risks/Education Patient Education: Gait Training, Transfer Techniques, Reviewed Precautions, Correct Positioning, Safety Issues Teaching Recipient: Patient Teaching Methods: Demonstration, Discussion Response to Teaching: Reinforcement Needed Time/GCodes Time In: 1410 Time Out: 1440 Total Billed Treatment Time: 30 Total Billed Treatment 1 visit FA 10' EX 20' FELIX BLEDSOE PT Oct 06, 2016 14:47
[2016-10-06] MEDS: HYDROcodone/APAP 10 MG/325 MG (LORTAB) TAB PO PRN (14:59)
--- NOTE | 2016-10-06 14:59 | Consultation (CHS) ---
HPI History of Present Illness: 66 yo female admitted to inpatient rehab after ORIF right tibial plateau fracture after falling off a step ladder at home a few days ago. She is feeling okay currently but has not had a bowel movement in a few days. Denies any other concerns. Source: patient, family Date seen by provider: Oct 06, 2016 Time Seen by Provider: 14:55 Attending Physician Levar Suh MD PCP Yajaira Resendez DO Consult Date of Admission Oct 06, 2016 at 11:05 am Home Medications Home Medications Reviewed patient Home Medication Reconciliation Form Allergies Coded Allergies: No Known Drug Allergies (Unverified , 11/26/15) DII-Hscrpc-[place] Hx Patient Social History Alcohol Use: Denies Use Recreational Drug Use: No Recent Foreign Travel: No Contact w/other who traveled: No Recent Hopitalizations: No Recent Infectious Disease Expo: No Physical Abuse Screen: No Sexual Abuse: No Immunizations Up To Date Tetanus Booster (TDap): Unknown Date of Influenza Vaccine: Nov 15, 2015 Past Medical History PMHx: DMII HTN Anxiety Hypothyroidism Osteoporosis HLD PSurgHx: Right knee tibial plateau fracture, ORIF Family Medical History Significant Family History: Cancer, Diabetes Review of Systems ([facility]) Constitutional: No fever EENTM: no symptoms reported Respiratory: no symptoms reported Cardiovascular: no symptoms reported Gastrointestinal: abdominal pain, constipation Genitourinary: no symptoms reported Musculoskeletal: joint pain Skin: no symptoms reported Psychiatric/Neurological: No Symptoms Reported Physical Exam-([facility]) Physical Exam Vital Signs Capillary Refill : General Appearance: WD/WN, no apparent distress Respiratory: lungs clear, normal breath sounds Cardiovascular: regular rate, rhythm, no murmur Gastrointestinal: normal bowel sounds, non tender, distended Extremities: other (mild right leg swelling below dressing) Neurologic/Psychiatric: alert, normal mood/affect Skin: normal color, warm/dry Assessment/Plan Assessment/Plan Admission Dx s/p ORIF right knee HTN DMII Anxiety Hypothyroidism Osteoporosis UTI Plan s/p ORIF right knee- management per Ortho and Rehab HTN- resumed home hydrochlorothiazide, amlodipine, lisinopril Monitor DMII- diabetic diet, blood sugar fasting and 2 hours postprandial Resumed home metformin and Levemir Anxiety resumed home sertraline, olanzepine Hypothyroidism resumed home synthroid Osteoporosis resumed home Fosamax UTI- culture from 10/02 ER visit with E coli and Klebsiella, both sensitive to cefazolin, continue cephalexin to complete 7 day course Diagnosis/Problems: Clinical Quality Measures DVT/VTE Risk/Contraindication: Risk Factor Score Per Nursin RFS Level Per Nursing on Admit: 4+=Very High HAYLEY WILLARD MD Oct 06, 2016 2:58 pm
--- NOTE | 2016-10-06 15:03 | Therapy Group Daily Note ---
Therapy Daily Group Note Patient Education Topic Other List Below (ARU description and expectations) Exercises LE Seated Exercise, UE Exercise Other/Notes Pt. attended group PT OT session. Pt. came via w/c. Pt. appeared fatigued but pressed through and participated well .Pt. appeared to enjoy herself , introducing self and joining in conversation. Pts lead exercise group reading and demonstrating from handout card distributed to each of them prior to group start. Ascending and descending stairs was explained and demonstrated suing rails and also FWW up down steps. Pt. asked questions and participated well. Was very social. In bed after group with devi at hand Start Time: 13:00 Stop Time: 14:10 Total Billed Treatment Time: 70 Total Billed Treatment 1,GRP MODE DIAZ FIELD SALES MANAGER Oct 06, 2016 15:02
[2016-10-06 18:00] VITALS: BP 129/73
[2016-10-06] MEDS: CALCIUM CARB + VIT D 600 MG (CALCARB + D) TAB PO SCH (18:07)
[2016-10-06] MEDS: inSUlin ASPART (NovoLOG) 1 UNIT/0.01 ML (CHARGE PER UNIT) SC SCH (18:30)
[2016-10-06] MEDS ORDERED: inSUlin ASPART (NovoLOG) 1 UNIT/0.01 ML (CHARGE PER UNIT) SC NR (18:45)
[2016-10-06] MEDS ORDERED: inSUlin DETERMIR 1 UNIT/0.01 ML (LEVEMIR) CHARGE PER UNIT SQ SCH (21:00)
[2016-10-06] MEDS: DIVALPROEX EXT RELEASE 500 MG (DEPAKOTE ER) TAB PO SCH (21:10)
[2016-10-06] MEDS: metFORMIN XR 500 MG (GLUCOPHAGE XR) TAB PO SCH (21:11)
[2016-10-06] MEDS: DOCUSATE SODIUM 100 MG (COLACE) CAP PO SCH (21:11)
[2016-10-06] MEDS: diphenhydrAMINE 25 MG TAB (BENADRYL) PO PRN (21:11)
[2016-10-06] MEDS: MELATONIN 3 MG TABLET PO PRN (21:11)
[2016-10-06] MEDS: OLANZapine 5 MG (ZyPREXA) TAB PO SCH (21:11)
[2016-10-06] MEDS: CEPHALEXIN 250 MG (KEFLEX) CAP PO SCH (21:11)
[2016-10-06] MEDS: SIMvastatin 20 MG (ZOCOR) TAB PO SCH (21:11)
[2016-10-06] MEDS: SERTRALINE 50 MG (ZOLOFT) TABLET PO SCH (21:12)
[2016-10-06] MEDS: lisINopril 20 MG (ZESTRIL) TAB PO SCH (21:12)
[2016-10-06] MEDS: LUMIGAN 0.01% OPTH SOLUTION OP SCH (21:13)
[2016-10-06] MEDS: POLYETHYLENE GLYCOL 17 GM (MIRALAX) PACK PO SCH (21:14)
--- NOTE | 2016-10-07 00:08 | HISTORY AND PHYSICAL ---
DATE OF SERVICE: CHIEF COMPLAINT: Difficulty with walking. HISTORY OF PRESENT ILLNESS: The patient is a 66-year-old , retired female, who is living alone in her apartment, who fell off a stepstool at home, sustaining her right tibial plateau fracture. The patient underwent ORIF with orthopedics and made toe-touch weightbearing of the right lower extremity. The patient had been independent prior to this and has a supportive family, a daughter, who is a nurse at this facility and a sister, who is a nurse, that retired from this facility. Currently, she requires assistance for ADLs and mobility skills. She is mod assist for transfers with hopping gait with walker, mode assist for bed mobility. She is set up for eating and grooming, mid assist for body dressing, and max assist for lower body dressing, mod assist for toileting and toileting hygiene. PAST MEDICAL HISTORY: Insulin-dependent diabetes mellitus, glaucoma, depression, insomnia and hypertension. PAST SURGICAL HISTORY: As per above. Breast cancer with mastectomy. ALLERGIES: No known medication allergies. FAMILY HISTORY: Noncontributory. SOCIAL HISTORY: Essentially as per above. REVIEW OF SYSTEMS: A 10-point review of systems is significant for fall, right leg pain. She was found to have a UTI while being evaluated in the ED and is on a 7-day course of p.o. antibiotics. MEDICATIONS: Fosamax 70 mg p.o. 2 every weekly, amlodipine 10 mg p.o. every day, ASA 81 mg p.o. every day, hydrochlorothiazide 12.5 mg p.o. every day, Lovenox 40 mg subcutaneous every day for DVT prophylaxis, fish oil 1000 mg p.o. every day, Timoptic eye drops 1 drop to both eyes daily, Synthroid 125 mcg p.o. every day, metformin 500 mg p.o. every day and 1000 mg in the evening, Depakote 500 mg p.o. at bedtime, Levemir insulin 20 units subcutaneous at bedtime, lisinopril 40 mg p.o. at bedtime, Zyprexa 5 mg p.o. at bedtime, Colace 100 mg p.o. b.i.d., MiraLAX 17 g p.o. b.i.d., Zoloft 75 mg p.o. at bedtime, Keflex 500 mg p.o. b.i.d., calcium and vitamin D 600 mg p.o. b.i.d., Lumigan eye drops 1 drop into the eye at bedtime, melatonin 3 mg p.o. at bedtime p.r.n. insomnia, pravastatin 40 mg p.o. at bedtime, hydrocodone APAP 10 mg 1 tablet p.o. q. 4 hours p.r.n. moderate pain, Motrin 400 mg p.o. q. 4 hours fever or mild pain, Zofran 4 mg p.o. q. 6 hours p.r.n. nausea and vomiting. Additional medication and insulin sliding scale regimen. PCP is [facility]. PHYSICAL EXAMINATION: GENEAL: Significant for a pleasant female appearing stated age, lying in bed, no acute distress. VITAL SIGNS: She had a temperature of 101 at 1:00 in the morning, she is afebrile at this point, pulse of 86, respirations 18 and blood pressure 164/82. She is afebrile at this point at 96.8. Respirations 18, blood pressure 164/82 and O2 saturation of 95% on O2 by nasal cannula. HEENT: Vision, speech, hearing grossly intact. No oral lesions are noted. NECK: Supple without mass. HEART: Regular rate and rhythm. LUNGS: Clear. ABDOMEN: Soft, nontender. Bowel sounds present. EXTREMITIES: Incision site right knee, mildly tender. No drainage noted. Dressing in place. Mild swelling noted. No lower leg edema. No calf tenderness on the left. MUSCULOSKELETAL: The patient has functional active range of motion of the both upper extremities, left lower extremity, and right lower extremity limited due to recent fracture and repair. NEUROLOGIC: Sensation is grossly intact to touch. Cognition is grossly intact. Strength is good in both upper limbs and left lower limb, right lower limb limited due to fracture and repair. She is able to dorsi and plantar flex at the right ankle. IMPRESSION: 1. Ambulatory dysfunction secondary to fall with resulting right tibial plateau fracture, status post ORIF orthopedics toe-touch weightbearing of the right lower extremity. 2. Insulin-dependent diabetes mellitus, controlled with medication. 3. Urinary tract infection with fever spike last night on p.o. antibiotic. 4. Hypertension, controlled with medication. 5. Depression on medication. 6. Hypothyroidism on replacement. 7. Glaucoma on eye drops. PLAN: The patient with have comprehensive program of inpatient rehabilitation with a goal to maximizing level of functional independence prior to discharge home with home health care and family to assist. The patient will have PT and OT 90 minutes per day each discipline, 5 days a week 90 minutes each discipline for 2 weeks for gait, strength and conditioning, ADLs and inpatient family caregiver training necessary, any adaptive equipment training necessary. The patient may require a wheelchair upon discharge due to her injury and toe-touch weightbearing of the left lower extremity. Speech therapy to do cognitive assessment and treat as indicated. Rehabilitation: Nursing to assist with bowel, bladder, skin, wound care, medication administration, pain management. security services specialist for discharge planning and community re-entry. Estimated length of stay, 2 weeks. PROGNOSIS: Rehab prognosis appears good with the goal of discharging home with family, modified independent to supervision for ADLs and mobility skills and most likely focus on the wheelchair level of function until her weightbearing status advances. DIET: Carb consistent. CODE STATUS: Full code. Job ID: [id number] DocumentID: [id number] Dictated Date: 10/06/2016 13:09:31 Visual Merchandising Specialist Date: 10/06/2016 15:44:31 Dictated By: LEVON ORTEGA MD [facility]
[2016-10-07] MEDS: HYDROcodone/APAP 10 MG/325 MG (LORTAB) TAB PO PRN ×2 (01:03→08:46)
[2016-10-07] MEDS: IBUPROFEN TABLET 200 MG TAB PO PRN (01:39)
[2016-10-07 05:32] VITALS: BP 155/75
[2016-10-07 05:51] LABS: BASOPHILS % (AUTO) 0 % (0-10); EOSINOPHILS # (AUTO) 0.2 10^3/uL (0.0-0.3); EOSINOPHILS % (AUTO) 1 % (0-10); LYMPHOCYTES # (AUTO) 2.9 X 10^3 (1.0-4.0); LYMPHOCYTES % (AUTO) 19 % (12-44); MEAN CORPUSCULAR HEMOGLOBIN 27 PG (25-34); MEAN CORPUSCULAR HGB CONC 31 G/DL (32-36); MEAN CORPUSCULAR VOLUME 88 FL (80-99); MONOCYTES # (AUTO) 1.7 X 10^3 (0.0-1.0); MONOCYTES % (AUTO) 12 % (0-12); NEUTROPHILS # (AUTO) 9.9 X 10^3 (1.8-7.8); NEUTROPHILS % (AUTO) 67 % (42-75); PLATELET COUNT 325 10^3/uL (130-400); RED BLOOD COUNT 3.11 10^6/uL (4.35-5.85); RED CELL DISTRIBUTION WIDTH 15.2 % (10.0-14.5); WHITE BLOOD COUNT 14.7 10^3/uL (4.3-11.0)
[2016-10-07] MEDS: metFORMIN XR 500 MG (GLUCOPHAGE XR) TAB PO SCH ×2 (05:58→21:16)
[2016-10-07 06:25] LABS: ALANINE AMINOTRANSFERASE 8 U/L (0-55); ALBUMIN 3.2 GM/DL (3.2-4.5); ANION GAP 9 MMOL/L (5-14); ASPARTATE AMINO TRANSFERASE 13 U/L (5-34); BILIRUBIN,TOTAL 0.6 MG/DL (0.1-1.0); BLOOD UREA NITROGEN 13 MG/DL (7-18); BUN/CREATININE RATIO 16; CALCIUM 8.5 MG/DL (8.5-10.1); CARBON DIOXIDE 29 MMOL/L (21-32); CHLORIDE 96 MMOL/L (98-107); GFR ESTIMATED > 60; GLUCOSE 247 MG/DL (70-105); POTASSIUM 3.6 MMOL/L (3.6-5.0); SODIUM 134 MMOL/L (135-145); TOTAL PROTEIN 5.8 GM/DL (6.4-8.2)
[2016-10-07] MEDS: LEVOTHYROXINE 125 MCG (LEVOTHROID) TABLET PO SCH (06:30)
[2016-10-07] MEDS: OMEGA 3 (FISH OIL) 1000 MG CAP PO SCH (06:30)
[2016-10-07] MEDS: inSUlin ASPART (NovoLOG) 1 UNIT/0.01 ML (CHARGE PER UNIT) SC SCH ×4 (06:30→21:17)
[2016-10-07] MEDS: CALCIUM CARB + VIT D 600 MG (CALCARB + D) TAB PO SCH ×2 (06:30→17:04)
[2016-10-07] MEDS: DOCUSATE SODIUM 100 MG (COLACE) CAP PO SCH ×2 (08:39→21:16)
[2016-10-07] MEDS: amLODIPine 10 MG (NORVASC) TAB PO SCH (08:39)
[2016-10-07] MEDS: ENOXAPARIN 40 MG/0.4 ML (LOVENOX) SYR SC SCH (08:39)
[2016-10-07] MEDS: ASPIRIN E.C. 81 MG (ECOTRIN) TAB PO SCH (08:39)
[2016-10-07] MEDS: HYDROCHLOROTHIAZIDE 12.5 MG (HCTZ) CAP PO SCH (08:39)
[2016-10-07] MEDS: POLYETHYLENE GLYCOL 17 GM (MIRALAX) PACK PO SCH ×2 (08:46→21:15)
[2016-10-07] MEDS: TIMOLOL MALEATE 0.5% 5 ML (TIMOPTIC) BTL OU SCH (08:47)
--- NOTE | 2016-10-07 10:07 | Occupational Ther Daily Note ---
OT Current Status-Daily Note Subjective Pt alert, sitting in recliner. Pt stated she felt better today. Agreed to therapy. Mental Status/Objective Patient Orientation: Person, Place, Time, Situation Functional [place] Measure 0=Not Assessed/NA 4=Minimal Assistance 1=Total Assistance 5=Supervision or Setup 2=Maximal Assistance 6=Modified [place] 3=Moderate Assistance 7=Complete [place] ADL-Treatment Functional [place] Measure 0=Not Assessed/NA 4=Minimal Assistance 1=Total Assistance 5=Supervision or Setup 2=Maximal Assistance 6=Modified [place] 3=Moderate Assistance 7=Complete IndependenceIRFPAI Quality Coding Scale 6 Independent with activity with or without an assistive device 5 Patient requires set up or clean up by helper. Patient completes activity by themselves 4 Supervision or touching assist (CGA). [place] provide cues , steadying assist 3 The helper provides less than half the effort to complete the activity 2 The helper provides more than half the effort to complete the activity 1 Dependent. The helper does all the effort to complete an activity 7 Patient refused to complete or attempt activity 9 The patient did not perform the activity before the current illness or injury 88 Not attempted due to Medical conditions or safety concerns Grooming (FIM): 5 (Assist needed to retrieve all grooming supplies. Pt sat in w/c at sink and completed all grooming.) Bathing (FIM): 4 (Using shower bench, grabbar and hand held shower pt able to complete shower with min A. Assistance needed to wash and dry L LE. Pt leaning toward side to cleanse buttocks. Pt given long handle sponge to assist with bathing.) Bathing Location: L Arm, R Arm, L Upper Leg, R Upper Leg, R Lower Leg ( including foot), Chest, Abdomen, Buttocks, Perineal Area Shower/Bathe Self (QC): 3 (Using shower bench, grabbar and hand held shower pt able to complete shower with min A. Assistance needed to wash and dry L LE. Pt leaning toward side to cleanse buttocks. ) Upper Body (FIM): 5 (After set up, pt able to complete upper body dressing.) Lower Body Dressing (FIM): 4 (After set up, pt able to complete lower body dressing. Pt used dressing stick to doff L sock, doffed R sock by self. Verbal cues to don pants/underwear donning L LE first. Education on donning socks with sock aide. Pt able to demonstrate understanding.) Shower Transfer(FIM): 4 (CGA using w/c, grabbar and shower bench to transfer.) OT Short Term Goals Short Term Goals Time Frame: Oct 13, 2016 Lower Body Dressing(FIM): 4 Toileting(FIM): 4 Toilet/Commode Transfer(FIM): 5 Additional Short Term Goals: 1-Demonstrate ADL Tasks, 2-Verbalize Understanding , 3-ImproveStrength/Luis 1=Demonstrate adherence to instructed precautions during ADL tasks. 2=Patient will verbalize/demonstrate understanding of assistive devices/ modifications for ADL. 3=Patient will improve strength/tolerance for activity to enable patient to perform ADL's. OT Fdc Goals Relay Checker Goals Time Frame: Oct 24, 2016 Eating (FIM): 6 Eating (QC): 6 Groomin Oral Hygiene (QC): 6 Bathing(FIM): 6 Shower/Bathe Self (QC): 6 Upper Body Dressing(FIM): 6 Upper Body Dressing (QC): 6 Lower Body Dressing(FIM): 6 Lower Body Dressing (QC): 6 On/Off Footwear (QC): 6 Toileting(FIM): 6 Toileting Hygiene (QC): 6 Toilet/Commode Transfer(FIM): 6 Toilet/Commode Transfer (QC): 6 Tub Transfer(FIM): 6 Shower Transfer(FIM): 6 Additional Goals: 1-Demonstrate ADL Tasks, 2-Verbalize Understanding, 3- ImproveStrength/Luis 1=Demonstrate adherence to instructed precautions during ADL tasks. 2=Patient will verbalize/demonstrate understanding of assistive devices/ modifications for ADL. 3=Patient will improve strength/tolerance for activity to enable patient to perform ADL's. OT Education/Plan Problem List/Assessment Pt would benefit from skilled OT to increase her independence in basic self care to allow her to safely return to her home and to decrease caregiver burden Discharge Recommendations Plan/Recommendations: Continue POC Treatment Plan/Plan of Care Patient would benefit from OT for education, treatment and training to promote independence in ADL's, mobility, safety and/or upper extremity function for ADL' s. Plan of Care: ADL Retraining, Functional Mobility, Group Exercise/Act as Ind ( education, exercise, activ maya, funct mobility, problem solving, socialization) , UE Funct Exercise/Act, UE Neuromus Re-Ed/Coord Treatment Duration: Oct 24, 2016 Frequency: At least 5 to 7 days/Wk (IRF) Estimated Hrs Per Day: 1.5 hours per day Agreement: Yes Rehab Potential: Good Time/GCodes Start Time: 09:00 Stop Time: 09:40 Total Time Billed (hr/min): 40 Billed Treatment Time 1 visit-ADL 3 (40 min) KALIA CAMACHO Oct 07, 2016 10:07
--- NOTE | 2016-10-07 10:49 | Physical Therapy Daily Note ---
PT Daily Note-Current Subjective Pt in bed, agreeable but very groggy. Attempted LE ex upon return to bed but Pt quickly drifting off to sleep after 2-3 reps. Pain Numeric Pain Scale: 4 Location: Right Location Body Site: Knee Pain Description: Ache, Dull Appearance Very groggy Mental Status Patient Orientation: Person, Place, Time, Situation Transfers Functional [place] Measure 0=Not Assessed/NA 4=Minimal Assistance 1=Total Assistance 5=Supervision or Setup 2=Maximal Assistance 6=Modified [place] 3=Moderate Assistance 7=Complete IndependenceIRFPAI Quality Coding Scale 6 Independent with activity with or without an assistive device 5 Patient requires set up or clean up by helper. Patient completes activity by themselves 4 Supervision or touching assist (CGA). [place] provide cues , steadying assist 3 The helper provides less than half the effort to complete the activity 2 The helper provides more than half the effort to complete the activity 1 Dependent. The helper does all the effort to complete an activity 7 Patient refused to complete or attempt activity 9 The patient did not perform the activity before the current illness or injury 88 Not attempted due to Medical conditions or safety concerns Transfers (B, C, W/C) (FIM): 4 Scootin Supine to/from Sit: 4 Sit to/from Stand: 4 Sit to Lying (QC): 3 Sit to Stand (QC): 4 Weight Bearing Weight Bearing Restriction: Touch Toe Bearing Location Restriction: R LE Gait Training Does the Patient Walk?: Yes Gait (FIM): 2 Distance (FIM): 1=up to 49 ft Distance: 15 Walk 10 feet (QC): 4 Gait Level of Assist: 4 Gait Persons Needed: 1 Gait Assistive Device: FWW Ambulated with very slow gait. Unsteady but no nathen LOB. Constant VCS for TTWB vs. NWB as Pt frequently hops way into front of walker with weightbearing through heel on (L). Minimal correction with VCS this date. Treatments Gait training. Attempted LE ex in bed but Pt could not remain awake. Returned to bed with all needs met. Assessment Current Status: Poor Progress Pt corrected gait to TTWB on (R) LE for 1-2 steps then reverted back to unsafe hopping. Pt very groggy this date. PT Short Term Goals Short Term Goals Time Frame: Oct 13, 2016 Gait (FIM): 2 Distance (FIM): 8=616-27 ft Gait Level of Assist: 4 Gait Assistive Device: FWW PT Hammer Runner Goals Hammer Runner Goals PT Skilled Nursing Goals Time Frame: Oct 24, 2016 Transfers (B,C,W/C) (FIM): 6 Sit to Lying (QC): 6 Lying-Sitting on Side/Bed(QC): 6 Sit to Stand (QC): 6 Rollin Roll Left to Right (QC): 6 Chair/Nbl-bh-Tnlvs Xfer(QC): 6 Car Transfer (QC): 5 Does the Patient Walk: Yes Gait (FIM): 5 Gait distance (FIM): 6=373-19 ft Distance: 50 ft household distance Walk 10 feet (QC): 5 Walk 10ft-Uneven Surface(QC): 5 Walk 50ft with 2 Turns (QC): 5 Walk 150 ft (QC): 88 Gait Assistive Device: FWW Does the Pt use WC or Scooter?: No Stairs (FIM): 2 # of Steps: 1 Picking up an Object (QC): 88 PT Plan Problem List Problem List: Activity Tolerance, Functional Strength, Safety, Balance, Gait, Transfer, Bed Mobility Treatment/Plan Treatment Plan: Continue Plan of Care Treatment Plan: Bed Mobility, Education, Functional Activity Luis, Functional Strength, Group Therapy, Gait, Safety, Therapeutic Exercise, Transfers Treatment Duration: Oct 24, 2016 Frequency: At least 5 to 7 days/Wk (IRF) Estimated Hrs Per Day: 1.5 hours per day Patient and/or Family Agrees t: Yes Safety Risks/Education Patient Education: Gait Training Teaching Recipient: Patient Teaching Methods: Demonstration, Discussion Response to Teaching: Reinforcement Needed Time/GCodes Time In: 0949 Time Out: 1002 Total Billed Treatment Time: 13 Total Billed Treatment 1, Gt x 13' G Codes Necessary: No CIPRIANO DAVIS DPT Oct 07, 2016 10:49
[2016-10-07] MEDS: CEPHALEXIN 250 MG (KEFLEX) CAP PO SCH ×2 (11:15→21:16)
[2016-10-07 18:17] VITALS: BP 119/78
[2016-10-07] MEDS: SERTRALINE 50 MG (ZOLOFT) TABLET PO SCH (21:15)
[2016-10-07] MEDS: LUMIGAN 0.01% OPTH SOLUTION OP SCH (21:15)
[2016-10-07] MEDS: OLANZapine 5 MG (ZyPREXA) TAB PO SCH (21:16)
[2016-10-07] MEDS: diphenhydrAMINE 25 MG TAB (BENADRYL) PO PRN (21:16)
[2016-10-07] MEDS: lisINopril 20 MG (ZESTRIL) TAB PO SCH (21:16)
[2016-10-07] MEDS: DIVALPROEX EXT RELEASE 500 MG (DEPAKOTE ER) TAB PO SCH (21:16)
[2016-10-07] MEDS: inSUlin DETERMIR 1 UNIT/0.01 ML (LEVEMIR) CHARGE PER UNIT SQ SCH (21:16)
[2016-10-07] MEDS: SIMvastatin 20 MG (ZOCOR) TAB PO SCH (21:16)
[2016-10-07] MEDS: MELATONIN 3 MG TABLET PO PRN (21:16)
[2016-10-08] MEDS: HYDROcodone/APAP 5 MG/325 MG (LORTAB) TAB PO PRN ×2 (03:46→21:38)
[2016-10-08 04:51] VITALS: BP 125/78
[2016-10-08] MEDS: metFORMIN XR 500 MG (GLUCOPHAGE XR) TAB PO SCH ×2 (05:35→21:57)
[2016-10-08] MEDS: CALCIUM CARB + VIT D 600 MG (CALCARB + D) TAB PO SCH ×2 (06:28→16:15)
[2016-10-08] MEDS: OMEGA 3 (FISH OIL) 1000 MG CAP PO SCH (06:28)
[2016-10-08] MEDS: LEVOTHYROXINE 125 MCG (LEVOTHROID) TABLET PO SCH (06:30)
[2016-10-08] MEDS: inSUlin ASPART (NovoLOG) 1 UNIT/0.01 ML (CHARGE PER UNIT) SC SCH ×4 (06:31→21:30)
[2016-10-08 09:02] VITALS: BP 124/76
[2016-10-08] MEDS: HYDROCHLOROTHIAZIDE 12.5 MG (HCTZ) CAP PO SCH (09:05)
[2016-10-08] MEDS: amLODIPine 10 MG (NORVASC) TAB PO SCH (09:05)
[2016-10-08] MEDS: ASPIRIN E.C. 81 MG (ECOTRIN) TAB PO SCH (09:05)
[2016-10-08] MEDS: CEPHALEXIN 250 MG (KEFLEX) CAP PO SCH ×2 (09:05→21:24)
[2016-10-08] MEDS: DOCUSATE SODIUM 100 MG (COLACE) CAP PO SCH ×2 (09:05→21:25)
[2016-10-08] MEDS: POLYETHYLENE GLYCOL 17 GM (MIRALAX) PACK PO SCH ×2 (09:06→21:35)
[2016-10-08] MEDS: ENOXAPARIN 40 MG/0.4 ML (LOVENOX) SYR SC SCH (09:06)
[2016-10-08] MEDS: TIMOLOL MALEATE 0.5% 5 ML (TIMOPTIC) BTL OU SCH (09:08)
[2016-10-08] MEDS: IBUPROFEN TABLET 200 MG TAB PO PRN (15:46)
[2016-10-08] MEDS: LUMIGAN 0.01% OPTH SOLUTION OP SCH (21:23)
[2016-10-08] MEDS: SIMvastatin 20 MG (ZOCOR) TAB PO SCH (21:24)
[2016-10-08] MEDS: SERTRALINE 50 MG (ZOLOFT) TABLET PO SCH (21:25)
[2016-10-08] MEDS: lisINopril 20 MG (ZESTRIL) TAB PO SCH (21:26)
[2016-10-08] MEDS: DIVALPROEX EXT RELEASE 500 MG (DEPAKOTE ER) TAB PO SCH (21:26)
[2016-10-08] MEDS: OLANZapine 5 MG (ZyPREXA) TAB PO SCH (21:26)
[2016-10-08] MEDS: inSUlin DETERMIR 1 UNIT/0.01 ML (LEVEMIR) CHARGE PER UNIT SQ SCH (21:31)
[2016-10-09] MEDS: metFORMIN XR 500 MG (GLUCOPHAGE XR) TAB PO SCH ×2 (05:00→21:00)
[2016-10-09 05:07] VITALS: BP 124/77
[2016-10-09] MEDS: OMEGA 3 (FISH OIL) 1000 MG CAP PO SCH (06:20)
[2016-10-09] MEDS: inSUlin ASPART (NovoLOG) 1 UNIT/0.01 ML (CHARGE PER UNIT) SC SCH ×4 (06:20→20:56)
[2016-10-09] MEDS: LEVOTHYROXINE 125 MCG (LEVOTHROID) TABLET PO SCH (06:20)
[2016-10-09] MEDS: CALCIUM CARB + VIT D 600 MG (CALCARB + D) TAB PO SCH ×2 (06:20→16:41)
[2016-10-09] MEDS: CEPHALEXIN 250 MG (KEFLEX) CAP PO SCH ×2 (09:04→20:57)
[2016-10-09] MEDS: HYDROCHLOROTHIAZIDE 12.5 MG (HCTZ) CAP PO SCH (09:04)
--- NOTE | 2016-10-09 09:04 | Physical Therapy Daily Note ---
PT Daily Note-Current Subjective Pt up in chair and agreeable to treatment. Pain rated 4-5/10 upon arrival and 6 /10 toward end of treatment session anterior aspect R knee. Mental Status Patient Orientation: Person, Place, Situation Transfers Functional [place] Measure 0=Not Assessed/NA 4=Minimal Assistance 1=Total Assistance 5=Supervision or Setup 2=Maximal Assistance 6=Modified [place] 3=Moderate Assistance 7=Complete IndependenceIRFPAI Quality Coding Scale 6 Independent with activity with or without an assistive device 5 Patient requires set up or clean up by helper. Patient completes activity by themselves 4 Supervision or touching assist (CGA). [place] provide cues , steadying assist 3 The helper provides less than half the effort to complete the activity 2 The helper provides more than half the effort to complete the activity 1 Dependent. The helper does all the effort to complete an activity 7 Patient refused to complete or attempt activity 9 The patient did not perform the activity before the current illness or injury 88 Not attempted due to Medical conditions or safety concerns Pt CGA for all transfers. Pt TTWB (R) LE. Gait Training Gait Assistive Device: FWW PT amb with FWW and TTWB (R) LE 2 x 15ft, 1 x 5ft. Pt stopped at BR for BR privileges SBA. Wheelchair Training Type of Wheelchair: Manual PT practiced w/c mobility 50ft, including manuevering around a table in DR. Limited by increased pain in knee due to dangling. Pt pushed rest of way back to her bed due to complaint of pain. Exercises Supine Ex: Ankle pumps, Quad Set, Glut sets, Straight leg raise Supine Reps: 15 Treatments PT requires max A with SLR and mod A R LE for transfer sit to supine. Pt able to ambulate further and did a nice job maintaining TTWB. Assessment Current Status: Good Progress Pt maya well and resting in bed with (R) LE floating on pillow. Call light in reach and all needs met. PT Short Term Goals Short Term Goals Time Frame: Oct 13, 2016 Gait (FIM): 2 Distance (FIM): 6=333-82 ft Gait Level of Assist: 4 Gait Assistive Device: FWW PT Retirement Goals Data Management Engineer Goals PT Data Management Engineer Goals Time Frame: Oct 24, 2016 Transfers (B,C,W/C) (FIM): 6 Sit to Lying (QC): 6 Lying-Sitting on Side/Bed(QC): 6 Sit to Stand (QC): 6 Rollin Roll Left to Right (QC): 6 Chair/Jof-cy-Bqqyl Xfer(QC): 6 Car Transfer (QC): 5 Does the Patient Walk: Yes Gait (FIM): 5 Gait distance (FIM): 6=838-96 ft Distance: 50 ft household distance Walk 10 feet (QC): 5 Walk 10ft-Uneven Surface(QC): 5 Walk 50ft with 2 Turns (QC): 5 Walk 150 ft (QC): 88 Gait Assistive Device: FWW Does the Pt use WC or Scooter?: No Stairs (FIM): 2 # of Steps: 1 Picking up an Object (QC): 88 PT Plan Treatment/Plan Treatment Plan: Continue Plan of Care Treatment Plan: Bed Mobility, Education, Functional Activity Luis, Functional Strength, Group Therapy, Gait, Safety, Therapeutic Exercise, Transfers Treatment Duration: Oct 24, 2016 Frequency: At least 5 to 7 days/Wk (IRF) Estimated Hrs Per Day: 1.5 hours per day Patient and/or Family Agrees t: Yes Time/GCodes Time In: 810 Time Out: 900 Total Billed Treatment Time: 50 Total Billed Treatment 1, gait 20 min, ther ex 15 min, FA 15 min JEEVAN NICOLE CPTGabe Oct 09, 2016 09:04
[2016-10-09] MEDS: ENOXAPARIN 40 MG/0.4 ML (LOVENOX) SYR SC SCH (09:05)
[2016-10-09] MEDS: amLODIPine 10 MG (NORVASC) TAB PO SCH (09:05)
[2016-10-09] MEDS: DOCUSATE SODIUM 100 MG (COLACE) CAP PO SCH ×2 (09:05→20:58)
[2016-10-09] MEDS: ASPIRIN E.C. 81 MG (ECOTRIN) TAB PO SCH (09:05)
[2016-10-09] MEDS: POLYETHYLENE GLYCOL 17 GM (MIRALAX) PACK PO SCH ×2 (09:06→20:58)
[2016-10-09] MEDS: TIMOLOL MALEATE 0.5% 5 ML (TIMOPTIC) BTL OU SCH (09:06)
[2016-10-09] MEDS: HYDROcodone/APAP 5 MG/325 MG (LORTAB) TAB PO PRN ×3 (11:22→21:19)
--- NOTE | 2016-10-09 12:56 | Occupational Ther Daily Note ---
OT Current Status-Daily Note Subjective Pt seen in room, up in bed, asleep but easily awakened. Agreeable to OT and wants to take a shower. Pain reported 5-6 and nursing provided pain meds Appearance A little drowsy initially Mental Status/Objective Functional [place] Measure 0=Not Assessed/NA 4=Minimal Assistance 1=Total Assistance 5=Supervision or Setup 2=Maximal Assistance 6=Modified [place] 3=Moderate Assistance 7=Complete [place] ADL-Treatment Pt needed a little help to get her R leg out of bed. Once she was sitting EOB, she needed skilled cues for hand placement for sit to stand. Walked to bathroom today, about 15 feet, close CGA, FWW, able to maintain weight bearing restrictions but needing steadying help when turning. Walked very slowly and with small steps. Min assist getting into shower and out of shower. Pt reported that she used the tall toilet earlier this morning instead of BSC and thought it went well. After shower, pt walked back to recliner to dress. After dressing , pt left up in recliner, lunch present, all needs met. Functional [place] Measure 0=Not Assessed/NA 4=Minimal Assistance 1=Total Assistance 5=Supervision or Setup 2=Maximal Assistance 6=Modified [place] 3=Moderate Assistance 7=Complete IndependenceIRFPAI Quality Coding Scale 6 Independent with activity with or without an assistive device 5 Patient requires set up or clean up by helper. Patient completes activity by themselves 4 Supervision or touching assist (CGA). [place] provide cues , steadying assist 3 The helper provides less than half the effort to complete the activity 2 The helper provides more than half the effort to complete the activity 1 Dependent. The helper does all the effort to complete an activity 7 Patient refused to complete or attempt activity 9 The patient did not perform the activity before the current illness or injury 88 Not attempted due to Medical conditions or safety concerns Grooming (FIM): 5 (Washed face and hands in shower, brushed hair with setup. had already done teeth) Bathing (FIM): 4 (Pt was able to wash and dry all parts but needed CGA to stand and wash bottom. Shower bench, grab bars, hand held shower, long handled sponge) Upper Body (FIM): 5 (Doffed and donned clothing with setup, including bra and shirt) Lower Body Dressing (FIM): 4 (CGA needed when standing to pull up pants, FWW. Pt educ modified techniques for lower body dressing, using dressing stick to take socks off and help to put pants on. Nursing setup TREVER hose to help manage LE edema inR foot. ) Transfers (B, C, W/C) (FIM): 4 Shower Transfer(FIM): 4 (Min assist, shower bench, grab bars, FWW) Education OT Patient Education: Progress toward Goal/Update tx plan, Purpose of tx/ functional activities, Reviewed precautions Teaching Recipient: Patient Teaching Methods: Discussion Response to Teaching: Verbalize Understanding OT Short Term Goals Short Term Goals Time Frame: Oct 13, 2016 Lower Body Dressing(FIM): 4 Toileting(FIM): 4 Toilet/Commode Transfer(FIM): 5 Additional Short Term Goals: 1-Demonstrate ADL Tasks, 2-Verbalize Understanding , 3-ImproveStrength/Luis 1=Demonstrate adherence to instructed precautions during ADL tasks. 2=Patient will verbalize/demonstrate understanding of assistive devices/ modifications for ADL. 3=Patient will improve strength/tolerance for activity to enable patient to perform ADL's. OT Custodial Goals Custodial Goals Time Frame: Oct 24, 2016 Eating (FIM): 6 Eating (QC): 6 Groomin Oral Hygiene (QC): 6 Bathing(FIM): 6 Shower/Bathe Self (QC): 6 Upper Body Dressing(FIM): 6 Upper Body Dressing (QC): 6 Lower Body Dressing(FIM): 6 Lower Body Dressing (QC): 6 On/Off Footwear (QC): 6 Toileting(FIM): 6 Toileting Hygiene (QC): 6 Toilet/Commode Transfer(FIM): 6 Toilet/Commode Transfer (QC): 6 Tub Transfer(FIM): 6 Shower Transfer(FIM): 6 Additional Goals: 1-Demonstrate ADL Tasks, 2-Verbalize Understanding, 3- ImproveStrength/Luis 1=Demonstrate adherence to instructed precautions during ADL tasks. 2=Patient will verbalize/demonstrate understanding of assistive devices/ modifications for ADL. 3=Patient will improve strength/tolerance for activity to enable patient to perform ADL's. OT Education/Plan Problem List/Assessment Pt would benefit from skilled OT to increase her independence in basic self care to allow her to safely return to her home and to decrease caregiver burden Discharge Recommendations Plan/Recommendations: Continue POC Treatment Plan/Plan of Care Patient would benefit from OT for education, treatment and training to promote independence in ADL's, mobility, safety and/or upper extremity function for ADL' s. Plan of Care: ADL Retraining, Functional Mobility, Group Exercise/Act as Ind ( education, exercise, activ maya, funct mobility, problem solving, socialization) , UE Funct Exercise/Act, UE Neuromus Re-Ed/Coord Treatment Duration: Oct 24, 2016 Frequency: At least 5 to 7 days/Wk (IRF) Estimated Hrs Per Day: 1.5 hours per day Agreement: Yes Rehab Potential: Good Time/GCodes Start Time: 11:00 Stop Time: 12:00 Total Time Billed (hr/min): 60 Billed Treatment Time visit, 60 minutes ADL KASSIE DUMONT OT Oct 09, 2016 12:56
--- NOTE | 2016-10-09 14:44 | Therapy Group Daily Note ---
Therapy Daily Group Note Patient Education Topic Other List Below Exercises LE Seated Exercise, UE Exercise Other/Notes Pt was an active participant in OT/PT group. She contributed to education/ discussion on memory and memory strategies and was able to identify different strategies that work for her to help remembering things. She also was successful in a memory activity, matching different images. She did seated UE and LE exercises, modifying them to her limitations. She was returned to her room per w/c, toileted and walked to recliner, CGA, FWW, all needs met. Start Time: 13:00 Stop Time: 14:15 Total Billed Treatment Time: 75 Total Billed Treatment visit, 75 minutes group KASSIE DUMONT OT Oct 09, 2016 14:44
[2016-10-09 17:30] VITALS: BP 137/84
[2016-10-09] MEDS: DIVALPROEX EXT RELEASE 500 MG (DEPAKOTE ER) TAB PO SCH (20:57)
[2016-10-09] MEDS: SERTRALINE 50 MG (ZOLOFT) TABLET PO SCH (20:57)
[2016-10-09] MEDS: inSUlin DETERMIR 1 UNIT/0.01 ML (LEVEMIR) CHARGE PER UNIT SQ SCH (20:57)
[2016-10-09] MEDS: lisINopril 20 MG (ZESTRIL) TAB PO SCH (20:58)
[2016-10-09] MEDS: SIMvastatin 20 MG (ZOCOR) TAB PO SCH (20:58)
[2016-10-09] MEDS: LUMIGAN 0.01% OPTH SOLUTION OP SCH (20:59)
[2016-10-09] MEDS: OLANZapine 5 MG (ZyPREXA) TAB PO SCH (21:03)
[2016-10-10 04:56] VITALS: BP 150/85
[2016-10-10] MEDS: inSUlin ASPART (NovoLOG) 1 UNIT/0.01 ML (CHARGE PER UNIT) SC SCH ×4 (05:07→21:21)
[2016-10-10] MEDS: LEVOTHYROXINE 125 MCG (LEVOTHROID) TABLET PO SCH (05:38)
[2016-10-10] MEDS: metFORMIN XR 500 MG (GLUCOPHAGE XR) TAB PO SCH ×2 (05:38→21:20)
[2016-10-10] MEDS: OMEGA 3 (FISH OIL) 1000 MG CAP PO SCH (06:05)
[2016-10-10] MEDS: CALCIUM CARB + VIT D 600 MG (CALCARB + D) TAB PO SCH ×2 (06:05→16:29)
[2016-10-10 06:54] LABS: MEAN PLATELET VOLUME 8.9 FL (7.4-10.4); RED BLOOD COUNT 3.21 10^6/uL (4.35-5.85); RED CELL DISTRIBUTION WIDTH 15.7 % (10.0-14.5); WHITE BLOOD COUNT 12.2 10^3/uL (4.3-11.0)
[2016-10-10 07:16] LABS: ANION GAP 14 MMOL/L (5-14); BLOOD UREA NITROGEN 18 MG/DL (7-18); BUN/CREATININE RATIO 24; CALCIUM 9.2 MG/DL (8.5-10.1); CARBON DIOXIDE 24 MMOL/L (21-32); CHLORIDE 99 MMOL/L (98-107); CREATININE SERUM 0.74 MG/DL (0.60-1.30); GFR ESTIMATED > 60; GLUCOSE 121 MG/DL (70-105); POTASSIUM 3.9 MMOL/L (3.6-5.0); SODIUM 137 MMOL/L (135-145)
[2016-10-10] MEDS: DOCUSATE SODIUM 100 MG (COLACE) CAP PO SCH ×2 (08:34→21:18)
[2016-10-10] MEDS: ASPIRIN E.C. 81 MG (ECOTRIN) TAB PO SCH (08:35)
[2016-10-10] MEDS: CEPHALEXIN 250 MG (KEFLEX) CAP PO SCH ×2 (08:35→21:21)
[2016-10-10] MEDS: amLODIPine 10 MG (NORVASC) TAB PO SCH (08:35)
[2016-10-10] MEDS: HYDROCHLOROTHIAZIDE 12.5 MG (HCTZ) CAP PO SCH (08:35)
[2016-10-10] MEDS: ENOXAPARIN 40 MG/0.4 ML (LOVENOX) SYR SC SCH (08:36)
[2016-10-10] MEDS: POLYETHYLENE GLYCOL 17 GM (MIRALAX) PACK PO SCH ×2 (08:36→21:18)
[2016-10-10] MEDS: TIMOLOL MALEATE 0.5% 5 ML (TIMOPTIC) BTL OU SCH (08:37)
[2016-10-10] MEDS: IBUPROFEN TABLET 200 MG TAB PO PRN ×2 (09:09→20:15)
--- NOTE | 2016-10-10 10:21 | Occupational Ther Daily Note ---
OT Current Status-Daily Note Subjective Pt seen in room, up in bed, agreeable to OT. Pt said that her knee was uncomfortable but had difficulty rating or describing this. Appearance Alert, cooperative Mental Status/Objective Functional [place] Measure 0=Not Assessed/NA 4=Minimal Assistance 1=Total Assistance 5=Supervision or Setup 2=Maximal Assistance 6=Modified [place] 3=Moderate Assistance 7=Complete [place] ADL-Treatment Pt was able to get her R leg off the bed by pushing with her L, then sat EOB without help. Skilled cues for hand placement for sit to stand, with CGA, FWW. Walked CGA, FWW slowly to bathroom and toileted. Then transferred to shower to bathe. Walked back to recliner with CGA, FWW, moving very slowly and following weight bearing restrictions. Pt seems to be more comfortable with walking today and has to concentrate less. Functional [place] Measure 0=Not Assessed/NA 4=Minimal Assistance 1=Total Assistance 5=Supervision or Setup 2=Maximal Assistance 6=Modified [place] 3=Moderate Assistance 7=Complete IndependenceIRFPAI Quality Coding Scale 6 Independent with activity with or without an assistive device 5 Patient requires set up or clean up by helper. Patient completes activity by themselves 4 Supervision or touching assist (CGA). [place] provide cues , steadying assist 3 The helper provides less than half the effort to complete the activity 2 The helper provides more than half the effort to complete the activity 1 Dependent. The helper does all the effort to complete an activity 7 Patient refused to complete or attempt activity 9 The patient did not perform the activity before the current illness or injury 88 Not attempted due to Medical conditions or safety concerns Bathing (FIM): 5 (Pt washed and dried all parts, with stup. SB when standing to wash bottom but CGA not needed today. Shower bench, grab bars, hand held shower, long handled sponge.) Upper Body (FIM): 5 (setup to undress and dress) Lower Body Dressing (FIM): 4 (Pt needed setup to don TEDs and pt educ for use of sock aid to put slipper socks on. Pt educ mod technique for donning pants, also needing physical cues and assist. Dressing stick. CGA when standing to pull pants off but balance improving and was able to leg to of FWW to pull pants up. ) Toileting (FIM): 5 (SBA managing clothing. No assist needed for hygiene. Tall toilet, grab bar, FWW) Transfers (B, C, W/C) (FIM): 4 Toilet Transfer (QC): 5 (SBA getting on and off tall toilet, grab bar, FWW) Other Treatment Pt educ on 4 different bilat UE exercises to help with transfers and ADLs. Pt needed visual and verbal cues to do 10 reps each, then needed fewer cues to do second set of 10. Able to track reps but with just a little difficulty switching sided. Pt left up in recliner, legs elevated, all needs met. Education OT Patient Education: Exercise program, Modified ADL techniques, Progress toward Goal/Update tx plan, Purpose of tx/functional activities, Transfer techniques, Use of adapted equipment Teaching Recipient: Patient Teaching Methods: Demonstration, Discussion Response to Teaching: Verbalize Understanding, Return Demonstration, Reinforcement Needed OT Short Term Goals Short Term Goals Time Frame: Oct 13, 2016 Lower Body Dressing(FIM): 4 Toileting(FIM): 4 Toilet/Commode Transfer(FIM): 5 Additional Short Term Goals: 1-Demonstrate ADL Tasks, 2-Verbalize Understanding , 3-ImproveStrength/Luis 1=Demonstrate adherence to instructed precautions during ADL tasks. 2=Patient will verbalize/demonstrate understanding of assistive devices/ modifications for ADL. 3=Patient will improve strength/tolerance for activity to enable patient to perform ADL's. OT Diamond Saw Operator Goals Diamond Saw Operator Goals Time Frame: Oct 24, 2016 Eating (FIM): 6 Eating (QC): 6 Groomin Oral Hygiene (QC): 6 Bathing(FIM): 6 Shower/Bathe Self (QC): 6 Upper Body Dressing(FIM): 6 Upper Body Dressing (QC): 6 Lower Body Dressing(FIM): 6 Lower Body Dressing (QC): 6 On/Off Footwear (QC): 6 Toileting(FIM): 6 Toileting Hygiene (QC): 6 Toilet/Commode Transfer(FIM): 6 Toilet/Commode Transfer (QC): 6 Tub Transfer(FIM): 6 Shower Transfer(FIM): 6 Additional Goals: 1-Demonstrate ADL Tasks, 2-Verbalize Understanding, 3- ImproveStrength/Luis 1=Demonstrate adherence to instructed precautions during ADL tasks. 2=Patient will verbalize/demonstrate understanding of assistive devices/ modifications for ADL. 3=Patient will improve strength/tolerance for activity to enable patient to perform ADL's. OT Education/Plan Problem List/Assessment Pt would benefit from skilled OT to increase her independence in basic self care to allow her to safely return to her home and to decrease caregiver burden Discharge Recommendations Plan/Recommendations: Continue POC Treatment Plan/Plan of Care Patient would benefit from OT for education, treatment and training to promote independence in ADL's, mobility, safety and/or upper extremity function for ADL' s. Plan of Care: ADL Retraining, Functional Mobility, Group Exercise/Act as Ind ( education, exercise, activ maya, funct mobility, problem solving, socialization) , UE Funct Exercise/Act, UE Neuromus Re-Ed/Coord Treatment Duration: Oct 24, 2016 Frequency: At least 5 to 7 days/Wk (IRF) Estimated Hrs Per Day: 1.5 hours per day Agreement: Yes Rehab Potential: Good Time/GCodes Start Time: 08:47 Stop Time: 09:47 Total Time Billed (hr/min): 60 Billed Treatment Time visit, 45 minutes ADL, 15 minutes exercise KASSIE DUMONT OT Oct 10, 2016 10:21
--- NOTE | 2016-10-10 11:57 | Physical Therapy Daily Note ---
PT Daily Note-Current Subjective Pt. states pain in R knee is 6/10 to 7/10 throughout Rx. 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 was having difficulty getting good leverage. Pt. comments after using shorter FWW that gait was much easier and she felt she could walk farther, easier. Pain Numeric Pain Scale: 6 Location: Right Location Body Site: Knee Pain Description: Ache Mental Status Patient Orientation: Normal For Age Transfers Functional [place] Measure 0=Not Assessed/NA 4=Minimal Assistance 1=Total Assistance 5=Supervision or Setup 2=Maximal Assistance 6=Modified [place] 3=Moderate Assistance 7=Complete IndependenceIRFPAI Quality Coding Scale 6 Independent with activity with or without an assistive device 5 Patient requires set up or clean up by helper. Patient completes activity by themselves 4 Supervision or touching assist (CGA). [place] provide cues , steadying assist 3 The helper provides less than half the effort to complete the activity 2 The helper provides more than half the effort to complete the activity 1 Dependent. The helper does all the effort to complete an activity 7 Patient refused to complete or attempt activity 9 The patient did not perform the activity before the current illness or injury 88 Not attempted due to Medical conditions or safety concerns Transfers (B, C, W/C) (FIM): 5 Scootin Rollin Supine to/from Sit: 5 Sit to/from Stand: 5 Weight Bearing Weight Bearing Restriction: Touch Toe Bearing Gait Training Does the Patient Walk?: Yes Gait (FIM): 1 Distance (FIM): 1=up to 49 ft (20ftx2,30ftx2,35ftx2) Gait Level of Assist: 4 Gait Persons Needed: 1 Gait Assistive Device: FWW improved gait and better flow through with shorter FWW and better leverage Exercises Seated Therapy Exercises: Ankle pumps, Sit to stand, Long arc quads, Shoulder Abd, Hip abd/add Seated Reps: 12 (x2) Assessment Current Status: Good Progress increased gait stability PT Short Term Goals Short Term Goals Time Frame: Oct 13, 2016 Gait (FIM): 2 Distance (FIM): 7=496-08 ft Gait Level of Assist: 4 Gait Assistive Device: FWW PT Prison Goals Prison Goals PT Prison Goals Time Frame: Oct 24, 2016 Transfers (B,C,W/C) (FIM): 6 Sit to Lying (QC): 6 Lying-Sitting on Side/Bed(QC): 6 Sit to Stand (QC): 6 Rollin Roll Left to Right (QC): 6 Chair/[id number] Xfer(QC): 6 Car Transfer (QC): 5 Does the Patient Walk: Yes Gait (FIM): 5 Gait distance (FIM): 6=151-88 ft Distance: 50 ft household distance Walk 10 feet (QC): 5 Walk 10ft-Uneven Surface(QC): 5 Walk 50ft with 2 Turns (QC): 5 Walk 150 ft (QC): 88 Gait Assistive Device: FWW Does the Pt use WC or Scooter?: No Stairs (FIM): 2 # of Steps: 1 Picking up an Object (QC): 88 PT Plan Treatment/Plan Treatment Plan: Continue Plan of Care Treatment Plan: Bed Mobility, Education, Functional Activity Luis, Functional Strength, Group Therapy, Gait, Safety, Therapeutic Exercise, Transfers Treatment Duration: Oct 24, 2016 Frequency: At least 5 to 7 days/Wk (IRF) Estimated Hrs Per Day: 1.5 hours per day Patient and/or Family Agrees t: Yes Safety Risks/Education Patient Education: Gait Training, Transfer Techniques, Correct Positioning, Safety Issues Teaching Recipient: Patient Teaching Methods: Demonstration, Discussion Response to Teaching: Verbalize Understanding, Return Demonstration, Reinforcement Needed Time/GCodes Time In: 1100 Time Out: 1200 Total Billed Treatment Time: 60 Total Billed Treatment 1,EX15, GT45 G Codes Necessary: MODE Bueno JEWEL HOLE CORNERER Oct 10, 2016 11:57
--- NOTE | 2016-10-10 14:39 | Therapy Group Daily Note ---
Therapy Daily Group Note Patient Education Topic Other List Below Exercises LE Seated Exercise, UE Exercise, Other Other/Notes Pt was an active participant in OT group. She contributed to discussion/ education, recalling memory strategies from group yesterday, then applying them in multisensory memory activities and exercises, including visual memory, tactile memory, muscle memory. She also led the group in an exercise that she recalled from therapy. She walked back to her room with SBA to CGA, FWW, was toileted and up in recliner, all needs met. Start Time: 13:00 Stop Time: 14:10 Total Billed Treatment Time: 70 Total Billed Treatment visit, 70 minutes group KASSIE DUMONT OT Oct 10, 2016 14:39
[2016-10-10 14:57] VITALS: BP 132/76
--- NOTE | 2016-10-10 16:45 | PM & R (SOAP) Progress Note ---
Subjective Time Seen by Provider: 16:30 Subjective/Events-last exam Patient was seen in her room this AM Patient SBA for transfers Objective Exam Last Set of Vital Signs Vital Signs Date Time Temp Pulse Resp B/P (MAP) Pulse Ox O2 Delivery O2 Flow Rate FiO2 10/10/16 14:57 99.2 87 16 132/76 96 Room Air Capillary Refill : Less Than 3 Seconds I&O Intake and Output 10/11/16 00:00 Intake Total 240 ml Balance 240 ml Intake Oral 240 ml # Voids 4 General: Alert, Oriented X3, Cooperative, No Acute Distress HEENT: Atraumatic, PERRLA, EOMI, Mucous Memb Moist/[place] Neck: Supple, No JVD Lungs: Clear to Auscultation Heart: Regular Rate Abdomen: Normal Bowel Sounds, Soft, No Tenderness Extremities: Other (ice on rt knee with dry dressing in place) Neuro: Other (weakness rt leg due to recent frx) Psych/Mental Status: Mental Status NL Results Lab Laboratory Tests 10/07/16 20:35: Glucometer 359H 10/08/16 06:30: Glucometer 104 10/08/16 11:04: Glucometer 282H 10/08/16 16:06: Glucometer 315H 10/08/16 20:19: Glucometer 266H 10/09/16 04:59: Glucometer 207H 10/09/16 11:10: Glucometer 254H 10/09/16 16:08: Glucometer 134H 10/09/16 20:49: Glucometer 333H 10/10/16 04:31: Glucometer 111H 10/10/16 06:47: White Blood Count 12.2H, Red Blood Count 3.21L, Hemoglobin 8.8L, Hematocrit 28L , Mean Corpuscular Volume 89, Mean Corpuscular Hemoglobin 27, Mean Corpuscular Hemoglobin Concent 31L, Red Cell Distribution Width 15.7H, Platelet Count 450H, Mean Platelet Volume 8.9, Sodium Level 137, Potassium Level 3.9, Chloride Level 99, Carbon Dioxide Level 24, Anion Gap 14, Blood Urea Nitrogen 18, Creatinine 0.74, Estimat Glomerular Filtration Rate > 60, BUN/Creatinine Ratio 24, Glucose Level 121H, Calcium Level 9.2 10/10/16 11:08: Glucometer 272H 10/10/16 16:06: Glucometer 300H Assessment/Plan Assessment RT Tibial plaateua frx s/p orip TTWB RLE postop anemia DM HTN Plan Continue PT/OT ST has signed off Team Conference tomorrow Patient SBA for transfers Appreciate LEVON Mroales MD Oct 10, 2016 16:45
--- NOTE | 2016-10-10 16:51 | Individualized Plan of Care ---
Individualized Plan of Care Rehab Nursing IPOC Order Admission Date Oct 06, 2016 at 11:05 Current Orders Orders Pt Evaluate/Treat Request (10/06/16 10:59) Request Ot Evaluate & Treat (10/06/16 10:59) Request For Cognitive Services (10/06/16 10:59) Weight Bearing Status (10/06/16 10:59) Admission-Acute Rehab Unit (10/06/16 11:05) Admission Arrival Bed Request (10/06/16 11:05) Aspirin Enteric Coated Tablet (Ecotrin T (10/07/16 09:00) Divalproex Er 24 Hr Tablet (Depakote Er (10/06/16 21:00) Hydrochlorothiazide Cap/Tablet (Hctz Cap (10/07/16 09:00) Insulin Aspart (Novolog) (Novolog (Charg (10/06/16 11:00) Cho 60g/M 1snack (16-2000 Tato) (10/06/16 Lunch) Insulin Determir (Per Unit) (Levemir (Pe (10/06/16 21:00) Levothyroxine Tablet (Synthroid Tablet) (10/07/16 06:30) Lisinopril Tablet (Zestril Tablet) (10/06/16 21:00) Metformin Xr Tablet (Glucophage Xr Table (10/07/16 05:00) Metformin Xr Tablet (Glucophage Xr Table (10/06/16 22:00) Olanzapine Tablet (Zyprexa Tablet) (10/06/16 21:00) Docusate Sodium Capsule (Colace Capsule) (10/06/16 21:00) Polyethylene Glycol Powder Pkt (Miralax (10/06/16 21:00) Sertraline Tablet (Zoloft Tablet) (10/06/16 21:00) Enoxaparin Injection (Lovenox Injection) (10/07/16 09:00) Hydrocodone/Apap 10/325 Tablet (Lortab 1 (10/06/16 12:00) Ibuprofen Tablet (Motrin Tablet) (10/06/16 12:00) Ondansetron Oral Dissolve Tab (Zofran (10/06/16 12:00) Cephalexin Capsule (Keflex Capsule) (10/06/16 21:00) Calcium Carbonate W/Vitamin D3 (Calcarb (10/06/16 17:00) Diphenhydramine Tablet (Benadryl Tablet) (10/06/16 12:15) Melatonin Tablet (Melatonin Tablet) (10/06/16 12:15) [place] 3 Capsule (Fish Oil Capsule) (10/07/16 07:00) Timolol 0.5% Ophthalmic Soln (Timoptic 0 (10/07/16 09:00) Non-Formulary Medication (Non-Formulary (10/06/16 21:00) Patient May Use Own Med,Single (Patient (10/06/16 12:30) Consult Physician (10/06/16 12:39) Ice: Apply To Affected Area (10/06/16 12:39) Accucheck Achs ACHS (10/06/16 12:39) Sequential Compression Device 08,20 (10/06/16 12:39) Consult Physician (10/06/16 12:39) Patient Visit (10/06/16 ) Speech Sound Lang Comp (10/06/16 ) Cbc With Automated Diff (10/07/16 06:00) Comprehensive Metabolic Panel (10/07/16 06:00) Ambulate TID (10/06/16 13:47) Sequential Compression Device 08,20 (10/06/16 13:47) Dvt/Vte Risk - Notifiy Physici (10/06/16 13:47) Patient Visit (10/06/16 ) Pt Eval Low Complexity (10/06/16 ) Functional Activities, Ea 15 (10/06/16 ) Amlodipine Tablet (Norvasc Tablet) (10/07/16 09:00) Alendronate Tablet (Fosamax Tablet) (10/11/16 06:00) Simvastatin Tablet (Zocor Tablet) (10/06/16 21:00) Patient Visit (10/06/16 ) Exercise Therap, Ea 15 Min (10/06/16 ) Functional Activities, Ea 15 (10/06/16 ) Accucheck Fasting UD (10/06/16 15:04) Insulin Aspart (Novolog) (Novolog (Charg (10/06/16 19:30) Follow Hypoglycemia Protocol (10/06/16 15:04) Notify Physician: (10/06/16 15:04) Nursing Communication (Patient (10/06/16 15:38) Rt Communication (10/06/16 15:41) Insulin Aspart (Novolog) (Novolog (Charg (10/06/16 18:45) Insulin Determir (Per Unit) (Levemir (Pe (10/07/16 21:00) Insulin Aspart (Novolog) (Novolog (Charg (10/07/16 16:00) Patient Visit (10/07/16 ) Gait Training, Ea 15 Min (10/07/16 ) Accucheck Achs ACHS (10/07/16 15:21) Hydrocodone/Apap 5/325 Tablet (Lortab 5 (10/07/16 17:30) Patient Visit (10/09/16 ) Patient Visit (10/09/16 ) Exercise Therap, Ea 15 Min (10/09/16 ) Gait Training, Ea 15 Min (10/09/16 ) Functional Activities, Ea 15 (10/09/16 ) Insulin Determir (Per Unit) (Levemir (Pe (10/09/16 21:00) Cbc No Diff (10/10/16 06:00) Basic Metabolic Panel (10/10/16 06:00) Patient Visit (10/06/16 ) Therapeutic, Group (10/06/16 ) Patient Visit (10/10/16 ) Exercise Therap, Ea 15 Min (10/10/16 ) Functional Activities, Ea 15 (10/10/16 ) Gait Training, Ea 15 Min (10/10/16 ) Other Nursing Orders: Monitor for postop urinary retention and constipation Intensity of Therapy to be met Patient to be seen: Min.3h per day/5 of 7d PT IPOC Problem List: Activity Tolerance, Functional Strength, Safety, Balance, Gait, Transfer, Bed Mobility Treatment Plan: Continue Plan of Care Bed Mobility, Education, Functional Activity Luis, Functional Strength, Group Therapy, Gait, Safety, Therapeutic Exercise, Transfers Treatment Duration: Oct 24, 2016 Frequency: At least 5 to 7 days/Wk (IRF) Estimated Hrs Per Day: 1.5 hours per day OT IPOC Problems: Decreased Activ Tolerance, Decreased UE Strength, Dependent Transfers , Impaired Funct Balance, Impaired Self-Care Skills OT Treatment, Training and Edu: Yes OT Problems Pt would benefit from skilled OT to increase her independence in basic self care to allow her to safely return to her home and to decrease caregiver burden Plan of Care: ADL Retraining, Functional Mobility, Group Exercise/Act as Ind ( education, exercise, activ maya, funct mobility, problem solving, socialization) , UE Funct Exercise/Act, UE Neuromus Re-Ed/Coord Treatment Duration: Oct 24, 2016 Frequency: At least 5 to 7 days/Wk (IRF) Estimated Hrs Per Day: 1.[address] IPOC Speech Therapy Treatment Plan: Discontinue ST (Evaluation, only.) Frequency: Modified Program (IRF) Estimated Hrs Per Day: Other (Evaluation, only.) Physician IPOC Medical Issues being managed closely and that require the 24 hour availability of a physician: HTN Pain management DM Postop anemia Medical Issues: DVT Prophylaxis, Falls Precautions, Fluid/Electrolyte/ Nutrition Balance, Infection Protection, Pain Management, Weight Bearing Precautions, Wound Care, Other (List) (as per above) Brief Synthesis of Preadmission Screen, Post-Admission Evaluation, and Therapy Evaluations: 66 yo female who had been Independent prior to falling off a stepstool at home sustaining a RT Tib Plateau frx managed with ORIF by Ortho and TTW#B RLE.PMH DM HTN now with postop anmeia Has a supportive faimil with a daughter and a sister who are nursed and live nearby Medical Prognosis: good Anticipated Length of Stay: 10-24-16 Rehab Goals Modified Independent at the W/C level for adls and mobility skills due to Wt Bearing restriction Anticipated discharge destinat: Home with family and [facility] LEVON ORTEGA MD Oct 10, 2016 16:51
[2016-10-10] MEDS: HYDROcodone/APAP 5 MG/325 MG (LORTAB) TAB PO PRN (18:04)
[2016-10-10 18:22] VITALS: BP 152/88
[2016-10-10] MEDS: lisINopril 20 MG (ZESTRIL) TAB PO SCH (21:20)
[2016-10-10] MEDS: DIVALPROEX EXT RELEASE 500 MG (DEPAKOTE ER) TAB PO SCH (21:20)
[2016-10-10] MEDS: SIMvastatin 20 MG (ZOCOR) TAB PO SCH (21:20)
[2016-10-10] MEDS: LUMIGAN 0.01% OPTH SOLUTION OP SCH (21:20)
[2016-10-10] MEDS: OLANZapine 5 MG (ZyPREXA) TAB PO SCH (21:21)
[2016-10-10] MEDS: inSUlin DETERMIR 1 UNIT/0.01 ML (LEVEMIR) CHARGE PER UNIT SQ SCH (21:21)
[2016-10-10] MEDS: SERTRALINE 50 MG (ZOLOFT) TABLET PO SCH (21:21)
[2016-10-11] MEDS: inSUlin ASPART (NovoLOG) 1 UNIT/0.01 ML (CHARGE PER UNIT) SC SCH ×4 (05:02→21:14)
[2016-10-11 05:22] VITALS: BP 166/77
[2016-10-11] MEDS: metFORMIN XR 500 MG (GLUCOPHAGE XR) TAB PO SCH ×2 (06:00→21:15)
[2016-10-11] MEDS ORDERED: ALENDRONATE SODIUM 70 MG (FOSAMAX) TAB PO SCH (06:00)
[2016-10-11] MEDS: LEVOTHYROXINE 125 MCG (LEVOTHROID) TABLET PO SCH (06:00)
[2016-10-11] MEDS: CALCIUM CARB + VIT D 600 MG (CALCARB + D) TAB PO SCH ×2 (06:21→16:30)
[2016-10-11] MEDS: OMEGA 3 (FISH OIL) 1000 MG CAP PO SCH (06:21)
[2016-10-11] MEDS: DOCUSATE SODIUM 100 MG (COLACE) CAP PO SCH ×2 (07:47→20:10)
[2016-10-11] MEDS: POLYETHYLENE GLYCOL 17 GM (MIRALAX) PACK PO SCH ×2 (07:48→20:10)
[2016-10-11] MEDS: CEPHALEXIN 250 MG (KEFLEX) CAP PO SCH ×2 (08:37→20:09)
[2016-10-11] MEDS: ASPIRIN E.C. 81 MG (ECOTRIN) TAB PO SCH (08:39)
[2016-10-11] MEDS: amLODIPine 10 MG (NORVASC) TAB PO SCH (08:39)
[2016-10-11] MEDS: IBUPROFEN TABLET 200 MG TAB PO PRN ×2 (08:40→20:09)
[2016-10-11] MEDS: HYDROCHLOROTHIAZIDE 12.5 MG (HCTZ) CAP PO SCH (08:41)
[2016-10-11] MEDS: ENOXAPARIN 40 MG/0.4 ML (LOVENOX) SYR SC SCH (08:42)
[2016-10-11] MEDS: TIMOLOL MALEATE 0.5% 5 ML (TIMOPTIC) BTL OU SCH (08:42)
--- NOTE | 2016-10-11 08:47 | PM & R (SOAP) Progress Note ---
Subjective Time Seen by Provider: 07:50 Subjective/Events-last exam Patient was seen in HER ROOM THIS am Patient sba for transfers Pain control adequate.Current meds and labs reviewed Review of Systems Musculoskeletal: leg pain Objective Exam Last Set of Vital Signs Vital Signs Date Time Temp Pulse Resp B/P (MAP) Pulse Ox O2 Delivery O2 Flow Rate FiO2 10/11/16 05:22 98.4 100 16 166/77 96 Room Air Capillary Refill : Less Than 3 Seconds I&O Intake and Output 10/12/16 00:00 Intake Total 240 ml Balance 240 ml Intake Oral 240 ml # Voids 4 General: Alert, Oriented X3, Cooperative, No Acute Distress HEENT: Atraumatic, PERRLA, EOMI, Mucous Memb Moist/[place] Neck: Supple, No JVD Lungs: Clear to Auscultation Heart: Regular Rate Abdomen: Normal Bowel Sounds, Soft, No Tenderness Extremities: Other (ice on rt knee with dry dressing in place) Neuro: Other (weakness rt leg due to recent frx) Psych/Mental Status: Mental Status NL Results Lab Laboratory Tests 10/08/16 11:04: Glucometer 282H 10/08/16 16:06: Glucometer 315H 10/08/16 20:19: Glucometer 266H 10/09/16 04:59: Glucometer 207H 10/09/16 11:10: Glucometer 254H 10/09/16 16:08: Glucometer 134H 10/09/16 20:49: Glucometer 333H 10/10/16 04:31: Glucometer 111H 10/10/16 06:47: White Blood Count 12.2H, Red Blood Count 3.21L, Hemoglobin 8.8L, Hematocrit 28L , Mean Corpuscular Volume 89, Mean Corpuscular Hemoglobin 27, Mean Corpuscular Hemoglobin Concent 31L, Red Cell Distribution Width 15.7H, Platelet Count 450H, Mean Platelet Volume 8.9, Sodium Level 137, Potassium Level 3.9, Chloride Level 99, Carbon Dioxide Level 24, Anion Gap 14, Blood Urea Nitrogen 18, Creatinine 0.74, Estimat Glomerular Filtration Rate > 60, BUN/Creatinine Ratio 24, Glucose Level 121H, Calcium Level 9.2 10/10/16 11:08: Glucometer 272H 10/10/16 16:06: Glucometer 300H 10/10/16 20:29: Glucometer 245H 10/11/16 04:43: Glucometer 175H Assessment/Plan Assessment RT Tibial plaateua frx s/p orip TTWB RLE postop anemia DM HTN Plan Continue PT/OT ST has signed off Team Conference later today-See report for full functional update and POC and ELOS Patient SBA for transfers Appreciate LEVON Morales MD Oct 11, 2016 08:47
--- NOTE | 2016-10-11 10:14 | Occupational Ther Daily Note ---
OT Current Status-Daily Note Subjective No pain reported. Appearance Pt. in bed. Agrees to shower and to occupational therapy. Mental Status/Objective Patient Orientation: Person, Place, Time, Situation Functional [place] Measure 0=Not Assessed/NA 4=Minimal Assistance 1=Total Assistance 5=Supervision or Setup 2=Maximal Assistance 6=Modified [place] 3=Moderate Assistance 7=Complete [place] ADL-Treatment Functional [place] Measure 0=Not Assessed/NA 4=Minimal Assistance 1=Total Assistance 5=Supervision or Setup 2=Maximal Assistance 6=Modified [place] 3=Moderate Assistance 7=Complete IndependenceIRFPAI Quality Coding Scale 6 Independent with activity with or without an assistive device 5 Patient requires set up or clean up by helper. Patient completes activity by themselves 4 Supervision or touching assist (CGA). [place] provide cues , steadying assist 3 The helper provides less than half the effort to complete the activity 2 The helper provides more than half the effort to complete the activity 1 Dependent. The helper does all the effort to complete an activity 7 Patient refused to complete or attempt activity 9 The patient did not perform the activity before the current illness or injury 88 Not attempted due to Medical conditions or safety concerns Grooming (FIM): 5 (Pt. is able to brush hair and teeth at wheelchair level at sink with set up.) Oral Hygiene (QC): 5 Bathing (FIM): 4 (Pt. requires CGA in stance and min assist to wash rear maggie area in shower.) Shower/Bathe Self (QC): 4 Upper Body (FIM): 5 Upper Body Dressing (QC): 5 Lower Body Dressing (FIM): 4 (Pt. required CGA in stance to pull pants over hips, and min assist to don socks using sock aide.) Lower Body Dressing (QC): 4 On/Off Footwear (QC): 4 Transfers (B, C, W/C) (FIM): 4 (CGA to stand and to balance on walker.) Shower Transfer(FIM): 4 Other Treatment Pt. agreed to shower. Transferred to wheelchair after shower. Self propelled slowly to therapy gym to work on UE strengthening. Completed 15 minutes on armbike at min resistance to increase overall strength and endurance with daily tasks. Self propelled wheelchair to kitchen area. Educated her on kitchen safety and how to retrieve items from high cabinets. Also talked about ways to make daily living easier, such as meals on wheels, using a walker basket or tray , using paper plates, and having family prepare meals for her ahead of time. Pt. verbalized understanding. Went to bathroom area. Pt. shown and educated on tub transfer bench, as she has a tub at home. Did not practice but will practice this at later time. Self propelled back to room. Transferred back to chair. All needs met. Continue with therapy. Education OT Patient Education: Correct positioning, Modified ADL techniques, Progress toward Goal/Update tx plan, Purpose of tx/functional activities, Reviewed precautions, Rehab process, Transfer techniques Teaching Recipient: Patient Teaching Methods: Demonstration, Discussion Response to Teaching: Verbalize Understanding, Return Demonstration OT Short Term Goals Short Term Goals Time Frame: Oct 13, 2016 Lower Body Dressing(FIM): 4 Toileting(FIM): 4 Toilet/Commode Transfer(FIM): 5 Additional Short Term Goals: 1-Demonstrate ADL Tasks, 2-Verbalize Understanding , 3-ImproveStrength/Luis 1=Demonstrate adherence to instructed precautions during ADL tasks. 2=Patient will verbalize/demonstrate understanding of assistive devices/ modifications for ADL. 3=Patient will improve strength/tolerance for activity to enable patient to perform ADL's. OT Conditioner Tumbler Operator Goals Conditioner Tumbler Operator Goals Time Frame: Oct 24, 2016 Eating (FIM): 6 Eating (QC): 6 Groomin Oral Hygiene (QC): 6 Bathing(FIM): 6 Shower/Bathe Self (QC): 6 Upper Body Dressing(FIM): 6 Upper Body Dressing (QC): 6 Lower Body Dressing(FIM): 6 Lower Body Dressing (QC): 6 On/Off Footwear (QC): 6 Toileting(FIM): 6 Toileting Hygiene (QC): 6 Toilet/Commode Transfer(FIM): 6 Toilet/Commode Transfer (QC): 6 Tub Transfer(FIM): 6 Shower Transfer(FIM): 6 Additional Goals: 1-Demonstrate ADL Tasks, 2-Verbalize Understanding, 3- ImproveStrength/Luis 1=Demonstrate adherence to instructed precautions during ADL tasks. 2=Patient will verbalize/demonstrate understanding of assistive devices/ modifications for ADL. 3=Patient will improve strength/tolerance for activity to enable patient to perform ADL's. OT Education/Plan Problem List/Assessment Assessment: Decreased Activ Tolerance, Impaired Funct Balance, Impaired I ADL's , Impaired Self-Care Skills Pt would benefit from skilled OT to increase her independence in basic self care to allow her to safely return to her home and to decrease caregiver burden Discharge Recommendations Plan/Recommendations: Continue POC Therapy D/C Recommendations: Home w/ Family Support, Occupational Therapy Home Care, Meals on Wheels Equpiment Recommendations-D/C: Hip Kit Comment Pt. will need tub transfer bench, walker, walker basket, and possibly manual wheelchair. Target Placement Home with family support. Treatment Plan/Plan of Care Treatment,Training & Education: Yes Patient would benefit from OT for education, treatment and training to promote independence in ADL's, mobility, safety and/or upper extremity function for ADL' s. Plan of Care: ADL Retraining, Functional Mobility, Group Exercise/Act as Ind ( education, exercise, activ maya, funct mobility, problem solving, socialization) , UE Funct Exercise/Act, UE Neuromus Re-Ed/Coord Treatment Duration: Oct 24, 2016 Frequency: At least 5 to 7 days/Wk (IRF) Estimated Hrs Per Day: 1.5 hours per day Agreement: Yes Rehab Potential: Good Time/GCodes Start Time: 08:30 Stop Time: 10:00 Total Time Billed (hr/min): 90 Billed Treatment Time 1, ADL x 60minutes, EX x 30minutes MANAN SEPULVEDA OT Oct 11, 2016 10:14
--- NOTE | 2016-10-11 10:51 | Physical Therapy Daily Note ---
PT Daily Note-Current Subjective Pt. agrees to rx but states she has pain today "after all that walking yesterday " and doesnt feel she can walk much today for Rx. Pain Numeric Pain Scale: 5-Moderate Pain Location: Right Location Body Site: Knee Pain Description: Ache Mental Status Patient Orientation: Normal For Age Transfers Functional [place] Measure 0=Not Assessed/NA 4=Minimal Assistance 1=Total Assistance 5=Supervision or Setup 2=Maximal Assistance 6=Modified [place] 3=Moderate Assistance 7=Complete IndependenceIRFPAI Quality Coding Scale 6 Independent with activity with or without an assistive device 5 Patient requires set up or clean up by helper. Patient completes activity by themselves 4 Supervision or touching assist (CGA). [place] provide cues , steadying assist 3 The helper provides less than half the effort to complete the activity 2 The helper provides more than half the effort to complete the activity 1 Dependent. The helper does all the effort to complete an activity 7 Patient refused to complete or attempt activity 9 The patient did not perform the activity before the current illness or injury 88 Not attempted due to Medical conditions or safety concerns Transfers (B, C, W/C) (FIM): 5 Scootin Rollin Supine to/from Sit: 5 Sit to/from Stand: 5 Weight Bearing Weight Bearing Restriction: Touch Toe Bearing Location Restriction: R LE maintains well Gait Training Does the Patient Walk?: Yes Gait (FIM): 1 Distance (FIM): 1=up to 49 ft (10ftx3) Gait Level of Assist: 4 Gait Persons Needed: 1 Gait Assistive Device: FWW Wheelchair Training Does the Pt Use a Wheelchair?: Yes Wheelchair (FIM): 2 Wheelchair Distance: 9=037-10 ft (125x2) Wheelchair Level of Assist: 5 Type of Wheelchair: Manual low, needs to try w/c on ramp Exercises Supine Ex: Ankle pumps, Quad Set, Rolling, Glut sets, Heel Slides, Short Arc Quads, Scooting, Straight leg raise, Hip abd/add Supine Reps: 15 Seated Therapy Exercises: Ankle pumps, Sit to stand, Long arc quads, Hip flexion Seated Reps: 12 Assessment Current Status: Good Progress nursing advises that pt has UTI this date. Pt. will likely perform better when this is clear PT Short Term Goals Short Term Goals Time Frame: Oct 13, 2016 Gait (FIM): 2 Distance (FIM): 1=409-08 ft Gait Level of Assist: 4 Gait Assistive Device: FWW PT Coagulant Dipper Goals Coagulant Dipper Goals PT Coagulant Dipper Goals Time Frame: Oct 24, 2016 Transfers (B,C,W/C) (FIM): 6 Sit to Lying (QC): 6 Lying-Sitting on Side/Bed(QC): 6 Sit to Stand (QC): 6 Rollin Roll Left to Right (QC): 6 Chair/Ccc-my-Ulhim Xfer(QC): 6 Car Transfer (QC): 5 Does the Patient Walk: Yes Gait (FIM): 5 Gait distance (FIM): 0=089-99 ft Distance: 50 ft household distance Walk 10 feet (QC): 5 Walk 10ft-Uneven Surface(QC): 5 Walk 50ft with 2 Turns (QC): 5 Walk 150 ft (QC): 88 Gait Assistive Device: FWW Does the Pt use WC or Scooter?: No Stairs (FIM): 2 # of Steps: 1 Picking up an Object (QC): 88 PT Plan Treatment/Plan Treatment Plan: Continue Plan of Care Treatment Plan: Bed Mobility, Education, Functional Activity Luis, Functional Strength, Group Therapy, Gait, Safety, Therapeutic Exercise, Transfers Treatment Duration: Oct 24, 2016 Frequency: At least 5 to 7 days/Wk (IRF) Estimated Hrs Per Day: 1.5 hours per day Patient and/or Family Agrees t: Yes Safety Risks/Education Patient Education: Gait Training, Transfer Techniques, Correct Positioning, W/ C Management, Disease Process, Safety Issues Teaching Recipient: Patient Teaching Methods: Demonstration, Discussion Response to Teaching: Verbalize Understanding, Return Demonstration, Reinforcement Needed Time/GCodes Time In: 1000 Time Out: 1100 Total Billed Treatment Time: 60 Total Billed Treatment 1,FA15m,WC15m,EX15m,GT15m G Codes Necessary: No MODE DIAZ MEDIA PLANNER Oct 11, 2016 10:51
[2016-10-11] MEDS: HYDROcodone/APAP 5 MG/325 MG (LORTAB) TAB PO PRN ×2 (11:03→18:41)
--- NOTE | 2016-10-11 12:59 | Physical Therapy Daily Note ---
PT Daily Note-Current Subjective Agrees to attempt gait. States her pain is better and now at 3/10. States she did take a "hydro" Pain Numeric Pain Scale: 3 Location: Right Location Body Site: Knee Pain Description: Ache Mental Status Patient Orientation: Normal For Age Transfers Functional [place] Measure 0=Not Assessed/NA 4=Minimal Assistance 1=Total Assistance 5=Supervision or Setup 2=Maximal Assistance 6=Modified [place] 3=Moderate Assistance 7=Complete IndependenceIRFPAI Quality Coding Scale 6 Independent with activity with or without an assistive device 5 Patient requires set up or clean up by helper. Patient completes activity by themselves 4 Supervision or touching assist (CGA). [place] provide cues , steadying assist 3 The helper provides less than half the effort to complete the activity 2 The helper provides more than half the effort to complete the activity 1 Dependent. The helper does all the effort to complete an activity 7 Patient refused to complete or attempt activity 9 The patient did not perform the activity before the current illness or injury 88 Not attempted due to Medical conditions or safety concerns all sup to sit and sit to stand SBA, toilet chair and bed Gait Training Gait Assistive Device: FWW 35ft x 2 CGA TTWB RLE. Exercises Seated Therapy Exercises: Ankle pumps, Sit to stand, Shoulder Flex, Long arc quads, Hip flexion Seated Reps: 15 Assessment Current Status: Good Progress less pain c/o , increased tolerance for gait PT Short Term Goals Short Term Goals Time Frame: Oct 13, 2016 Gait (FIM): 2 Distance (FIM): 6=885-68 ft Gait Level of Assist: 4 Gait Assistive Device: FWW PT Getterer Goals Senior Living Goals PT Senior Living Goals Time Frame: Oct 24, 2016 Transfers (B,C,W/C) (FIM): 6 Sit to Lying (QC): 6 Lying-Sitting on Side/Bed(QC): 6 Sit to Stand (QC): 6 Rollin Roll Left to Right (QC): 6 Chair/Pnd-pj-Qgukq Xfer(QC): 6 Car Transfer (QC): 5 Does the Patient Walk: Yes Gait (FIM): 5 Gait distance (FIM): 4=620-90 ft Distance: 50 ft household distance Walk 10 feet (QC): 5 Walk 10ft-Uneven Surface(QC): 5 Walk 50ft with 2 Turns (QC): 5 Walk 150 ft (QC): 88 Gait Assistive Device: FWW Does the Pt use WC or Scooter?: No Stairs (FIM): 2 # of Steps: 1 Picking up an Object (QC): 88 PT Plan Treatment/Plan Treatment Plan: Continue Plan of Care Treatment Plan: Bed Mobility, Education, Functional Activity Luis, Functional Strength, Group Therapy, Gait, Safety, Therapeutic Exercise, Transfers Treatment Duration: Oct 24, 2016 Frequency: At least 5 to 7 days/Wk (IRF) Estimated Hrs Per Day: 1.5 hours per day Patient and/or Family Agrees t: Yes Safety Risks/Education Patient Education: Gait Training, Transfer Techniques Teaching Recipient: Patient Teaching Methods: Demonstration, Discussion Response to Teaching: Verbalize Understanding, Return Demonstration Time/GCodes Time In: 1230 Time Out: 1300 Total Billed Treatment Time: 30 Total Billed Treatment 1,FA30m G Codes Necessary: MODE Bueno SENIOR TREASURY CONSULTANT Oct 11, 2016 12:59
[2016-10-11 18:00] VITALS: BP 151/88
[2016-10-11] MEDS: lisINopril 20 MG (ZESTRIL) TAB PO SCH (20:09)
[2016-10-11] MEDS: DIVALPROEX EXT RELEASE 500 MG (DEPAKOTE ER) TAB PO SCH (20:09)
[2016-10-11] MEDS: SIMvastatin 20 MG (ZOCOR) TAB PO SCH (20:09)
[2016-10-11] MEDS: SERTRALINE 50 MG (ZOLOFT) TABLET PO SCH (20:09)
[2016-10-11] MEDS: OLANZapine 5 MG (ZyPREXA) TAB PO SCH (20:09)
[2016-10-11] MEDS: LUMIGAN 0.01% OPTH SOLUTION OP SCH (20:10)
[2016-10-11] MEDS: inSUlin DETERMIR 1 UNIT/0.01 ML (LEVEMIR) CHARGE PER UNIT SQ SCH (21:15)
[2016-10-12] MEDS: metFORMIN XR 500 MG (GLUCOPHAGE XR) TAB PO SCH ×2 (05:40→20:52)
[2016-10-12] MEDS: CALCIUM CARB + VIT D 600 MG (CALCARB + D) TAB PO SCH ×2 (06:11→16:09)
[2016-10-12] MEDS: LEVOTHYROXINE 125 MCG (LEVOTHROID) TABLET PO SCH (06:11)
[2016-10-12] MEDS: OMEGA 3 (FISH OIL) 1000 MG CAP PO SCH (06:11)
[2016-10-12] MEDS: inSUlin ASPART (NovoLOG) 1 UNIT/0.01 ML (CHARGE PER UNIT) SC SCH ×4 (06:18→21:01)
[2016-10-12 06:27] VITALS: BP 119/78
--- NOTE | 2016-10-12 08:02 | PM & R (SOAP) Progress Note ---
Subjective Time Seen by Provider: 07:30 Subjective/Events-last exam Patient was seen in her roomthis AM Patient CGA for gait with walker TTWB RLE Accucheck this AM 63 [facility] adjusting Insulin-Will monitor Review of Systems Musculoskeletal: leg pain Objective Exam Last Set of Vital Signs Vital Signs Date Time Temp Pulse Resp B/P (MAP) Pulse Ox O2 Delivery O2 Flow Rate FiO2 10/12/16 06:27 97.8 89 18 119/78 95 Room Air Capillary Refill : Less Than 3 Seconds I&O Intake and Output 10/13/16 00:00 Intake Total 600 ml Balance 600 ml Intake Oral 600 ml # Voids 2 General: Alert, Oriented X3, Cooperative, No Acute Distress HEENT: Atraumatic, PERRLA, EOMI, Mucous Memb Moist/[place] Neck: Supple, No JVD Lungs: Clear to Auscultation Heart: Regular Rate Abdomen: Normal Bowel Sounds, Soft, No Tenderness Extremities: Other (ice on rt knee with dry dressing in place) Neuro: Other (weakness rt leg due to recent frx) Psych/Mental Status: Mental Status NL Results Lab Laboratory Tests 10/09/16 11:10: Glucometer 254H 10/09/16 16:08: Glucometer 134H 10/09/16 20:49: Glucometer 333H 10/10/16 04:31: Glucometer 111H 10/10/16 06:47: White Blood Count 12.2H, Red Blood Count 3.21L, Hemoglobin 8.8L, Hematocrit 28L , Mean Corpuscular Volume 89, Mean Corpuscular Hemoglobin 27, Mean Corpuscular Hemoglobin Concent 31L, Red Cell Distribution Width 15.7H, Platelet Count 450H, Mean Platelet Volume 8.9, Sodium Level 137, Potassium Level 3.9, Chloride Level 99, Carbon Dioxide Level 24, Anion Gap 14, Blood Urea Nitrogen 18, Creatinine 0.74, Estimat Glomerular Filtration Rate > 60, BUN/Creatinine Ratio 24, Glucose Level 121H, Calcium Level 9.2 10/10/16 11:08: Glucometer 272H 10/10/16 16:06: Glucometer 300H 10/10/16 20:29: Glucometer 245H 10/11/16 04:43: Glucometer 175H 10/11/16 10:48: Glucometer 190H 10/11/16 16:10: Glucometer 179H 10/11/16 21:11: Glucometer 274H 10/12/16 06:13: Glucometer 65L 10/12/16 07:09: Glucometer 114H Assessment/Plan Assessment RT Tibial plaateua frx s/p orip TTWB RLE postop anemia DM-meds being adjusted HTN Plan Continue PT/OT ST has signed off Team Conference held yesterday-See report for full functional update and POC and ELOS Patient SBA for transfers Appreciate DR Schumacher note F/U with DR Soto et al re further insulin adjustment as needed LEVON ORTEGA MD Oct 12, 2016 08:01
[2016-10-12] MEDS: CEPHALEXIN 250 MG (KEFLEX) CAP PO SCH ×2 (08:52→21:05)
[2016-10-12] MEDS: HYDROcodone/APAP 5 MG/325 MG (LORTAB) TAB PO PRN ×3 (08:52→19:42)
[2016-10-12] MEDS: HYDROCHLOROTHIAZIDE 12.5 MG (HCTZ) CAP PO SCH (08:52)
[2016-10-12] MEDS: ENOXAPARIN 40 MG/0.4 ML (LOVENOX) SYR SC SCH (08:52)
[2016-10-12] MEDS: IBUPROFEN TABLET 200 MG TAB PO PRN (08:52)
[2016-10-12] MEDS: amLODIPine 10 MG (NORVASC) TAB PO SCH (08:52)
[2016-10-12] MEDS: DOCUSATE SODIUM 100 MG (COLACE) CAP PO SCH ×2 (08:53→21:04)
[2016-10-12] MEDS: ASPIRIN E.C. 81 MG (ECOTRIN) TAB PO SCH (08:53)
[2016-10-12] MEDS: TIMOLOL MALEATE 0.5% 5 ML (TIMOPTIC) BTL OU SCH (08:53)
[2016-10-12] MEDS: POLYETHYLENE GLYCOL 17 GM (MIRALAX) PACK PO SCH ×2 (08:53→21:04)
--- NOTE | 2016-10-12 11:13 | Physical Therapy Daily Note ---
PT Daily Note-Current Subjective Pt sitting in chair after just finishing with OT upon arrival. Pt agrees to PT. Pain Numeric Pain Scale: 5-Moderate Pain Location: Right, Incisional Location Body Site: Knee Pain Description: Ache Mental Status Patient Orientation: Person, Place, Situation Transfers Functional [place] Measure 0=Not Assessed/NA 4=Minimal Assistance 1=Total Assistance 5=Supervision or Setup 2=Maximal Assistance 6=Modified [place] 3=Moderate Assistance 7=Complete IndependenceIRFPAI Quality Coding Scale 6 Independent with activity with or without an assistive device 5 Patient requires set up or clean up by helper. Patient completes activity by themselves 4 Supervision or touching assist (CGA). [place] provide cues , steadying assist 3 The helper provides less than half the effort to complete the activity 2 The helper provides more than half the effort to complete the activity 1 Dependent. The helper does all the effort to complete an activity 7 Patient refused to complete or attempt activity 9 The patient did not perform the activity before the current illness or injury 88 Not attempted due to Medical conditions or safety concerns Scootin Sit to/from Stand: 5 Sit to Stand (QC): 5 Weight Bearing Weight Bearing Restriction: Touch Toe Bearing Location Restriction: R LE Gait Training Does the Patient Walk?: Yes Distance (FIM): 3=150 ft Distance: 150' Walk 10 feet (QC): 4 Walk 50 ft with 2 Turns(QC): 4 Walk 150 ft (QC): 4 Gait Level of Assist: 4 Gait Persons Needed: 1 Gait Assistive Device: FWW Pt walks with slow but steady gait, no LOB. Pt rests due to pain and fatigues easy. Wheelchair Training Does the Pt Use a Wheelchair?: No Exercises Seated Therapy Exercises: Ankle pumps, Long arc quads, Hip flexion, Kicking activity Seated Reps: 20 NuStep Minutes: 10 NuStep Workload: 3 Treatments Pt transfers from chair to standing using FWW at SBA. Pt uses NuStep for 10m at Workload 3 followed by Seated Ex in chair. Pt then ambulates in Therapy Commons with rest break before returning to room to use toilet and rest. Pt rests in recliner at end of tx with all needs met. Assessment Current Status: Good Progress Pt is improving with ambulating farther before needing to rest as well as independence and safety with transfers and mobility. PT Short Term Goals Short Term Goals Time Frame: Oct 13, 2016 Gait (FIM): 2 Distance (FIM): 9=918-34 ft Gait Level of Assist: 4 Gait Assistive Device: FWW PT Long-Term Goals Long-Term Goals PT Mainframe Systems Engineer Goals Time Frame: Oct 24, 2016 Transfers (B,C,W/C) (FIM): 6 Sit to Lying (QC): 6 Lying-Sitting on Side/Bed(QC): 6 Sit to Stand (QC): 6 Rollin Roll Left to Right (QC): 6 Chair/Ibj-yc-Iedln Xfer(QC): 6 Car Transfer (QC): 5 Does the Patient Walk: Yes Gait (FIM): 5 Gait distance (FIM): 8=028-88 ft Distance: 50 ft household distance Walk 10 feet (QC): 5 Walk 10ft-Uneven Surface(QC): 5 Walk 50ft with 2 Turns (QC): 5 Walk 150 ft (QC): 88 Gait Assistive Device: FWW Does the Pt use WC or Scooter?: No Stairs (FIM): 2 # of Steps: 1 Picking up an Object (QC): 88 PT Plan Problem List Problem List: Activity Tolerance, Functional Strength, Safety, Balance, Gait Treatment/Plan Treatment Plan: Continue Plan of Care Treatment Plan: Bed Mobility, Education, Functional Activity Luis, Functional Strength, Group Therapy, Gait, Safety, Therapeutic Exercise, Transfers Treatment Duration: Oct 24, 2016 Frequency: At least 5 of 7 days/Wk (IRF) Estimated Hrs Per Day: 1.5 hours per day Patient and/or Family Agrees t: Yes Safety Risks/Education Patient Education: Gait Training, Transfer Techniques, Correct Positioning, Safety Issues Teaching Recipient: Patient Teaching Methods: Discussion Response to Teaching: Verbalize Understanding Time/GCodes Time In: 1000 Time Out: 1100 Total Billed Treatment Time: 60 Total Billed Treatment visit, GT (15m), FA (15m) & EX x2 (30m) VASHTI MANZO SHORTHAND TEACHER Oct 12, 2016 11:13
--- NOTE | 2016-10-12 11:18 | Occupational Ther Daily Note ---
OT Current Status-Daily Note Subjective Pt seen in room, up in recliner, agreeable to OT. No pain mentioned but later in gym pt reported discomfort R knee, relieved by warm blanket and pain meds given earlier Appearance Alert, cooperative Mental Status/Objective Functional [place] Measure 0=Not Assessed/NA 4=Minimal Assistance 1=Total Assistance 5=Supervision or Setup 2=Maximal Assistance 6=Modified [place] 3=Moderate Assistance 7=Complete [place] ADL-Treatment Pt walked to bathroom with close SBA - CGA for safety, FWW, with cues to try to keep feet a little farther apart when walking to give her a better base of support. Walked back to recliner same assist to dress, then to bathroom to brush teeth standing at sink, SBA, FWW for balance. Functional [place] Measure 0=Not Assessed/NA 4=Minimal Assistance 1=Total Assistance 5=Supervision or Setup 2=Maximal Assistance 6=Modified [place] 3=Moderate Assistance 7=Complete IndependenceIRFPAI Quality Coding Scale 6 Independent with activity with or without an assistive device 5 Patient requires set up or clean up by helper. Patient completes activity by themselves 4 Supervision or touching assist (CGA). [place] provide cues , steadying assist 3 The helper provides less than half the effort to complete the activity 2 The helper provides more than half the effort to complete the activity 1 Dependent. The helper does all the effort to complete an activity 7 Patient refused to complete or attempt activity 9 The patient did not perform the activity before the current illness or injury 88 Not attempted due to Medical conditions or safety concerns Grooming (FIM): 5 (Brushed teeth in standing at sink, FWW for balance. Washed face and hands in shower.) Bathing (FIM): 5 (Washed and dried all parts except back. Stood SBA in shower to wash bottom, balancing with grab bars. Shower bench, grab bar, hand held shower) Upper Body (FIM): 5 (Doffed and donned all clothing with setup, including bra) Lower Body Dressing (FIM): 5 (Doffed and donned all clothing with SBA for standing, FWW. Dressing stick to take socks off, did not use sock aid to put them on but struggled a little with R foot. ) Other Treatment After grooming, pt walked to gym with close SBA-CGA, FWW. Pt did 15 minutes bilat UE exercise on arm bike set at 20W resistance, with just a couple of brief recovery periods to get a drink. Also did other bilat UE activities with 1 # weight on each arm for strengthening, including graded clothespins, pegs, arc activity. Strengthening needed to help with weight bearing while walking and for increasing activity tolerance. Care transferred to PT at end of tx. Education OT Patient Education: Exercise program, Progress toward Goal/Update tx plan, Purpose of tx/functional activities, Safety issues, Transfer techniques Teaching Recipient: Patient Teaching Methods: Discussion Response to Teaching: Verbalize Understanding, Reinforcement Needed OT Short Term Goals Short Term Goals Time Frame: Oct 13, 2016 Lower Body Dressing(FIM): 4 Toileting(FIM): 4 Toilet/Commode Transfer(FIM): 5 Additional Short Term Goals: 1-Demonstrate ADL Tasks, 2-Verbalize Understanding , 3-ImproveStrength/Luis 1=Demonstrate adherence to instructed precautions during ADL tasks. 2=Patient will verbalize/demonstrate understanding of assistive devices/ modifications for ADL. 3=Patient will improve strength/tolerance for activity to enable patient to perform ADL's. OT Usp Goals Fashion Buyer Goals Time Frame: Oct 24, 2016 Eating (FIM): 6 Eating (QC): 6 Groomin Oral Hygiene (QC): 6 Bathing(FIM): 6 Shower/Bathe Self (QC): 6 Upper Body Dressing(FIM): 6 Upper Body Dressing (QC): 6 Lower Body Dressing(FIM): 6 Lower Body Dressing (QC): 6 On/Off Footwear (QC): 6 Toileting(FIM): 6 Toileting Hygiene (QC): 6 Toilet/Commode Transfer(FIM): 6 Toilet/Commode Transfer (QC): 6 Tub Transfer(FIM): 6 Shower Transfer(FIM): 6 Additional Goals: 1-Demonstrate ADL Tasks, 2-Verbalize Understanding, 3- ImproveStrength/Luis 1=Demonstrate adherence to instructed precautions during ADL tasks. 2=Patient will verbalize/demonstrate understanding of assistive devices/ modifications for ADL. 3=Patient will improve strength/tolerance for activity to enable patient to perform ADL's. OT Education/Plan Problem List/Assessment Pt would benefit from skilled OT to increase her independence in basic self care to allow her to safely return to her home and to decrease caregiver burden Discharge Recommendations Plan/Recommendations: Continue POC Treatment Plan/Plan of Care Patient would benefit from OT for education, treatment and training to promote independence in ADL's, mobility, safety and/or upper extremity function for ADL' s. Plan of Care: ADL Retraining, Functional Mobility, Group Exercise/Act as Ind ( education, exercise, activ maya, funct mobility, problem solving, socialization) , UE Funct Exercise/Act, UE Neuromus Re-Ed/Coord Treatment Duration: Oct 24, 2016 Frequency: At least 5 of 7 days/Wk (IRF) Estimated Hrs Per Day: 1.5 hours per day Agreement: Yes Rehab Potential: Good Time/GCodes Start Time: 08:30 Stop Time: 10:00 Total Time Billed (hr/min): 90 Billed Treatment Time visit, 35 minutes ADL, 55 minutes exercise KASSIE DUMONT OT Oct 12, 2016 11:18
--- NOTE | 2016-10-12 15:24 | Physical Therapy Daily Note ---
PT Daily Note-Current Subjective Pt sitting in recliner upon arrival. Pt agrees to PT. Pain Numeric Pain Scale: 6 Location: Right, Incisional Location Body Site: Knee Pain Description: Ache Mental Status Patient Orientation: Person, Place, Situation Transfers Functional [place] Measure 0=Not Assessed/NA 4=Minimal Assistance 1=Total Assistance 5=Supervision or Setup 2=Maximal Assistance 6=Modified [place] 3=Moderate Assistance 7=Complete IndependenceIRFPAI Quality Coding Scale 6 Independent with activity with or without an assistive device 5 Patient requires set up or clean up by helper. Patient completes activity by themselves 4 Supervision or touching assist (CGA). [place] provide cues , steadying assist 3 The helper provides less than half the effort to complete the activity 2 The helper provides more than half the effort to complete the activity 1 Dependent. The helper does all the effort to complete an activity 7 Patient refused to complete or attempt activity 9 The patient did not perform the activity before the current illness or injury 88 Not attempted due to Medical conditions or safety concerns Scootin Sit to/from Stand: 5 Sit to Stand (QC): 5 Weight Bearing Weight Bearing Restriction: Touch Toe Bearing Location Restriction: R LE Gait Training Does the Patient Walk?: Yes Distance (FIM): 3=150 ft Distance: 200' Walk 10 feet (QC): 4 Walk 50 ft with 2 Turns(QC): 4 Walk 150 ft (QC): 4 Gait Level of Assist: 4 Gait Persons Needed: 1 Gait Assistive Device: FWW Pt walks slow but steady, no LOB. Wheelchair Training Does the Pt Use a Wheelchair?: No Exercises Seated Therapy Exercises: Ankle pumps, Long arc quads, Hip flexion, Kicking activity Seated Reps: 15 Treatments Pt transfers from recliner to standing using FWW at [facility]. Pt uses restroom before leaving room. Pt ambulates in Therapy Commons before returning to room to rest in recliner. Pt completes Seated Ex in recliner and rests at end of tx with all needs met. Assessment Current Status: Good Progress Pt has improved on distance ambulated at a time and normalizing gait although still needs rest breaks but quick to recover. PT Short Term Goals Short Term Goals Time Frame: Oct 13, 2016 Gait (FIM): 2 Distance (FIM): 1=425-95 ft Gait Level of Assist: 4 Gait Assistive Device: FWW PT Fundraising Officer Goals Nursing Home Goals PT Fundraising Officer Goals Time Frame: Oct 24, 2016 Transfers (B,C,W/C) (FIM): 6 Sit to Lying (QC): 6 Lying-Sitting on Side/Bed(QC): 6 Sit to Stand (QC): 6 Rollin Roll Left to Right (QC): 6 Chair/Rcd-ei-Swlbs Xfer(QC): 6 Car Transfer (QC): 5 Does the Patient Walk: Yes Gait (FIM): 5 Gait distance (FIM): 1=639-17 ft Distance: 50 ft household distance Walk 10 feet (QC): 5 Walk 10ft-Uneven Surface(QC): 5 Walk 50ft with 2 Turns (QC): 5 Walk 150 ft (QC): 88 Gait Assistive Device: FWW Does the Pt use WC or Scooter?: No Stairs (FIM): 2 # of Steps: 1 Picking up an Object (QC): 88 PT Plan Problem List Problem List: Activity Tolerance, Functional Strength, Gait Treatment/Plan Treatment Plan: Continue Plan of Care Treatment Plan: Bed Mobility, Education, Functional Activity Luis, Functional Strength, Group Therapy, Gait, Safety, Therapeutic Exercise, Transfers Treatment Duration: Oct 24, 2016 Frequency: At least 5 of 7 days/Wk (IRF) Estimated Hrs Per Day: 1.5 hours per day Patient and/or Family Agrees t: Yes Safety Risks/Education Patient Education: Gait Training, Correct Positioning, Safety Issues Teaching Recipient: Patient Teaching Methods: Discussion Response to Teaching: Verbalize Understanding Time/GCodes Time In: 1330 Time Out: 1400 Total Billed Treatment Time: 30 Total Billed Treatment visit, FA (10m) & GT (20m) VASHTI MANZO FIRE FIGHTING EQUIPMENT SPECIALIST Oct 12, 2016 15:24
[2016-10-12 18:09] VITALS: BP 152/81
[2016-10-12 19:50] VITALS: BP 142/65
[2016-10-12] MEDS: DIVALPROEX EXT RELEASE 500 MG (DEPAKOTE ER) TAB PO SCH (20:51)
[2016-10-12] MEDS: SIMvastatin 20 MG (ZOCOR) TAB PO SCH (20:52)
[2016-10-12] MEDS: SERTRALINE 50 MG (ZOLOFT) TABLET PO SCH (20:52)
[2016-10-12] MEDS: lisINopril 20 MG (ZESTRIL) TAB PO SCH (20:52)
[2016-10-12] MEDS: OLANZapine 5 MG (ZyPREXA) TAB PO SCH (20:53)
[2016-10-12] MEDS: inSUlin DETERMIR 1 UNIT/0.01 ML (LEVEMIR) CHARGE PER UNIT SQ SCH (21:01)
[2016-10-12] MEDS: LUMIGAN 0.01% OPTH SOLUTION OP SCH (21:05)
[2016-10-13] MEDS: HYDROcodone/APAP 5 MG/325 MG (LORTAB) TAB PO PRN ×3 (01:35→22:43)
[2016-10-13 05:00] VITALS: BP 160/77
[2016-10-13] MEDS: inSUlin ASPART (NovoLOG) 1 UNIT/0.01 ML (CHARGE PER UNIT) SC SCH ×4 (05:15→20:32)
[2016-10-13] MEDS: metFORMIN XR 500 MG (GLUCOPHAGE XR) TAB PO SCH ×2 (05:30→20:33)
[2016-10-13] MEDS: LEVOTHYROXINE 125 MCG (LEVOTHROID) TABLET PO SCH (05:30)
[2016-10-13] MEDS: OMEGA 3 (FISH OIL) 1000 MG CAP PO SCH (06:21)
[2016-10-13] MEDS: CALCIUM CARB + VIT D 600 MG (CALCARB + D) TAB PO SCH ×2 (06:21→16:52)
[2016-10-13] MEDS: CEPHALEXIN 250 MG (KEFLEX) CAP PO SCH (08:47)
[2016-10-13] MEDS: ASPIRIN E.C. 81 MG (ECOTRIN) TAB PO SCH (08:47)
[2016-10-13] MEDS: HYDROCHLOROTHIAZIDE 12.5 MG (HCTZ) CAP PO SCH (08:47)
[2016-10-13] MEDS: IBUPROFEN TABLET 200 MG TAB PO PRN ×2 (08:47→18:10)
[2016-10-13] MEDS: amLODIPine 10 MG (NORVASC) TAB PO SCH (08:47)
[2016-10-13] MEDS: ENOXAPARIN 40 MG/0.4 ML (LOVENOX) SYR SC SCH (08:47)
[2016-10-13] MEDS: POLYETHYLENE GLYCOL 17 GM (MIRALAX) PACK PO SCH ×2 (08:48→19:49)
[2016-10-13] MEDS: TIMOLOL MALEATE 0.5% 5 ML (TIMOPTIC) BTL OU SCH (08:48)
[2016-10-13] MEDS: DOCUSATE SODIUM 100 MG (COLACE) CAP PO SCH ×2 (08:48→19:49)
--- NOTE | 2016-10-13 11:30 | Physical Therapy Daily Note ---
PT Daily Note-Current Subjective Pt. states she feels ok but is having pain at 6/10 in lateral knee on right Pain Numeric Pain Scale: 6 Location: Right Location Body Site: Knee Pain Description: Ache Mental Status Pt. does not follow all commands and appears she cant comprehend some things juanita with RE: instructing through exercise and TTWB. discussed this with pts dtr who feels it may be that pt needs to wear her hearing aides Transfers Functional [place] Measure 0=Not Assessed/NA 4=Minimal Assistance 1=Total Assistance 5=Supervision or Setup 2=Maximal Assistance 6=Modified [place] 3=Moderate Assistance 7=Complete IndependenceIRFPAI Quality Coding Scale 6 Independent with activity with or without an assistive device 5 Patient requires set up or clean up by helper. Patient completes activity by themselves 4 Supervision or touching assist (CGA). [place] provide cues , steadying assist 3 The helper provides less than half the effort to complete the activity 2 The helper provides more than half the effort to complete the activity 1 Dependent. The helper does all the effort to complete an activity 7 Patient refused to complete or attempt activity 9 The patient did not perform the activity before the current illness or injury 88 Not attempted due to Medical conditions or safety concerns Transfers (B, C, W/C) (FIM): 5 Scootin Rollin Supine to/from Sit: 5 Sit to/from Stand: 6 Weight Bearing Weight Bearing Restriction: Touch Toe Bearing Location Restriction: R LE Gait Training Does the Patient Walk?: Yes Gait (FIM): 5 Distance (FIM): 3=150 ft (x2) Gait Level of Assist: 5 Gait Persons Needed: 1 Gait Assistive Device: FWW increased endurance and distance for gait Exercises Supine Ex: Ankle pumps, Quad Set, Rolling, Glut sets, Heel Slides, Knee to chest, Short Arc Quads, Scooting, Straight leg raise (assist), Hip abd/add ( assist) Supine Reps: 15 Seated Therapy Exercises: Ankle pumps, Sit to stand, Long arc quads, Hip flexion Seated Reps: 12 NuStep Minutes: 10 NuStep Workload: 1 Assessment Current Status: Good Progress PT Short Term Goals Short Term Goals Time Frame: Oct 13, 2016 Gait (FIM): 2 Distance (FIM): 9=190-55 ft Gait Level of Assist: 4 Gait Assistive Device: FWW PT Group Home Goals Group Home Goals PT Group Home Goals Time Frame: Oct 24, 2016 Transfers (B,C,W/C) (FIM): 6 Sit to Lying (QC): 6 Lying-Sitting on Side/Bed(QC): 6 Sit to Stand (QC): 6 Rollin Roll Left to Right (QC): 6 Chair/Njj-vv-Syuim Xfer(QC): 6 Car Transfer (QC): 5 Does the Patient Walk: Yes Gait (FIM): 5 Gait distance (FIM): 7=098-30 ft Distance: 50 ft household distance Walk 10 feet (QC): 5 Walk 10ft-Uneven Surface(QC): 5 Walk 50ft with 2 Turns (QC): 5 Walk 150 ft (QC): 88 Gait Assistive Device: FWW Does the Pt use WC or Scooter?: No Stairs (FIM): 2 # of Steps: 1 Picking up an Object (QC): 88 PT Plan Treatment/Plan Treatment Plan: Continue Plan of Care Treatment Plan: Bed Mobility, Education, Functional Activity Luis, Functional Strength, Group Therapy, Gait, Safety, Therapeutic Exercise, Transfers Treatment Duration: Oct 24, 2016 Frequency: At least 5 of 7 days/Wk (IRF) Estimated Hrs Per Day: 1.5 hours per day Patient and/or Family Agrees t: Yes Safety Risks/Education Patient Education: Gait Training, Transfer Techniques, Correct Positioning, Disease Process, Safety Issues Teaching Recipient: Patient Teaching Methods: Demonstration, Discussion Response to Teaching: Verbalize Understanding, Return Demonstration, Reinforcement Needed Time/GCodes Time In: 1030 Time Out: 1130 Total Billed Treatment Time: 60 Total Billed Treatment 1,GT30,EX30 G Codes Necessary: MODE Bueno CHILDREN'S TUTOR Oct 13, 2016 11:30
--- NOTE | 2016-10-13 11:32 | Occupational Ther Daily Note ---
OT Current Status-Daily Note Subjective Pt seen in room, up in bed, agreeable to OT. No specific pain reported but R lower leg below knee is uncomfortable. Pt give pain meds during OT. Appearance Alert, cooperative Mental Status/Objective Functional [place] Measure 0=Not Assessed/NA 4=Minimal Assistance 1=Total Assistance 5=Supervision or Setup 2=Maximal Assistance 6=Modified [place] 3=Moderate Assistance 7=Complete [place] ADL-Treatment Pt got out of bed without assistance, FWW. Walked to bathroom with SBA for safely, FWW and stood at sink, balancing with FWW for grooming. CGA when backing up from sink with FWW, for safety. Pt walked SBA back to recliner to finish dressing. Also walked to and from gym with SBA for safety, FWW. Functional [place] Measure 0=Not Assessed/NA 4=Minimal Assistance 1=Total Assistance 5=Supervision or Setup 2=Maximal Assistance 6=Modified [place] 3=Moderate Assistance 7=Complete IndependenceIRFPAI Quality Coding Scale 6 Independent with activity with or without an assistive device 5 Patient requires set up or clean up by helper. Patient completes activity by themselves 4 Supervision or touching assist (CGA). [place] provide cues , steadying assist 3 The helper provides less than half the effort to complete the activity 2 The helper provides more than half the effort to complete the activity 1 Dependent. The helper does all the effort to complete an activity 7 Patient refused to complete or attempt activity 9 The patient did not perform the activity before the current illness or injury 88 Not attempted due to Medical conditions or safety concerns Grooming (FIM): 6 (Brushed teeth and combed hair, standing at sink. Washed face and hands in shower. ) Bathing (FIM): 5 (Turned water on and off and retrieved towel from bar. SBA when standing to wash bottom. Washed and dried all parts except back. Shower bench, grab bars, hand held shower. ) Upper Body (FIM): 5 (retrieved clothes from closet, FWW for balance, pt educ on walker safety when reaching for items. Doffed and donned clothing without help) Lower Body Dressing (FIM): 5 (retrieved clothes from closet, FWW for balance, pt educ on walker safety when reaching for items. Doffed and donned clothing without help. Dressing stick for sock removal, sock aid to don R slipper sock. ) Toileting (FIM): 6 (On and off toilet, managing clothing. Tall toilet, grab bars, FWW) Toilet/Commode Transfer (FIM): 6 (On and off tall toilet, with grab bar, FWW) Shower Transfer(FIM): 5 (Close SBA when getting in and out of shower, due to different hand placement with FWW and on grab bars) Other Treatment Pt walked over 100 feet to gym, SBA with FWW, no LOB observed. In gym, pt reported continued discomfort with R knee and was provided a warm blanket to put around knee. Pt did 15 minutes bilat UE exercise on arm bike, working at 10- 15W resistance, to strengthen arms for using FWW to manage weight bearing. Pt walked abck to room, toileted and was left upright in recliner, ice pack for R knee, all needs met. Education OT Patient Education: Exercise program, Modified ADL techniques, Progress toward Goal/Update tx plan, Purpose of tx/functional activities, Transfer techniques Teaching Recipient: Patient Teaching Methods: Discussion Response to Teaching: Verbalize Understanding, Reinforcement Needed OT Short Term Goals Short Term Goals Time Frame: Oct 13, 2016 Lower Body Dressing(FIM): 4 Toileting(FIM): 4 Toilet/Commode Transfer(FIM): 5 Additional Short Term Goals: 1-Demonstrate ADL Tasks, 2-Verbalize Understanding , 3-ImproveStrength/Luis 1=Demonstrate adherence to instructed precautions during ADL tasks. 2=Patient will verbalize/demonstrate understanding of assistive devices/ modifications for ADL. 3=Patient will improve strength/tolerance for activity to enable patient to perform ADL's. OT Dielectric Press Operator Goals Dielectric Press Operator Goals Time Frame: Oct 24, 2016 Eating (FIM): 6 Eating (QC): 6 Groomin Oral Hygiene (QC): 6 Bathing(FIM): 6 Shower/Bathe Self (QC): 6 Upper Body Dressing(FIM): 6 Upper Body Dressing (QC): 6 Lower Body Dressing(FIM): 6 Lower Body Dressing (QC): 6 On/Off Footwear (QC): 6 Toileting(FIM): 6 Toileting Hygiene (QC): 6 Toilet/Commode Transfer(FIM): 6 Toilet/Commode Transfer (QC): 6 Tub Transfer(FIM): 6 Shower Transfer(FIM): 6 Additional Goals: 1-Demonstrate ADL Tasks, 2-Verbalize Understanding, 3- ImproveStrength/Luis 1=Demonstrate adherence to instructed precautions during ADL tasks. 2=Patient will verbalize/demonstrate understanding of assistive devices/ modifications for ADL. 3=Patient will improve strength/tolerance for activity to enable patient to perform ADL's. OT Education/Plan Problem List/Assessment Pt would benefit from skilled OT to increase her independence in basic self care to allow her to safely return to her home and to decrease caregiver burden Discharge Recommendations Plan/Recommendations: Continue POC Treatment Plan/Plan of Care Patient would benefit from OT for education, treatment and training to promote independence in ADL's, mobility, safety and/or upper extremity function for ADL' s. Plan of Care: ADL Retraining, Functional Mobility, Group Exercise/Act as Ind ( education, exercise, activ maya, funct mobility, problem solving, socialization) , UE Funct Exercise/Act, UE Neuromus Re-Ed/Coord Treatment Duration: Oct 24, 2016 Frequency: At least 5 of 7 days/Wk (IRF) Estimated Hrs Per Day: 1.5 hours per day Agreement: Yes Rehab Potential: Good Time/GCodes Start Time: 08:30 Stop Time: 10:00 Total Time Billed (hr/min): 90 Billed Treatment Time visit, 45 minutes ADL, 45 minutes exercise KASSIE DUMONT OT Oct 13, 2016 11:32
--- NOTE | 2016-10-13 14:02 | Physical Therapy Daily Note ---
PT Daily Note-Current Subjective States she feels much better this afternoon as far as pain goes....feeling much less pain. State she is having trouble having a BM and wants to sit on the toilet for a while after her Rx Pain Numeric Pain Scale: 2 Location: Right Location Body Site: Knee Pain Description: Ache Mental Status more alert, better following directions, laughing, more participating in Rx Transfers Functional [place] Measure 0=Not Assessed/NA 4=Minimal Assistance 1=Total Assistance 5=Supervision or Setup 2=Maximal Assistance 6=Modified [place] 3=Moderate Assistance 7=Complete IndependenceIRFPAI Quality Coding Scale 6 Independent with activity with or without an assistive device 5 Patient requires set up or clean up by helper. Patient completes activity by themselves 4 Supervision or touching assist (CGA). [place] provide cues , steadying assist 3 The helper provides less than half the effort to complete the activity 2 The helper provides more than half the effort to complete the activity 1 Dependent. The helper does all the effort to complete an activity 7 Patient refused to complete or attempt activity 9 The patient did not perform the activity before the current illness or injury 88 Not attempted due to Medical conditions or safety concerns in out bed and chair all Mod I to SBA Weight Bearing Weight Bearing Restriction: Touch Toe Bearing Location Restriction: R LE Gait Training Gait Assistive Device: FWW [id number], TTWB R no LOB, better step length etc Exercises Standing: Hip Abduction, Hamstring curls, 3 way Ex=Flex, Abd, Ext, Marching Standing Reps: 15 (RLE only) Assessment Current Status: Good Progress PT Short Term Goals Short Term Goals Time Frame: Oct 13, 2016 Gait (FIM): 2 Distance (FIM): 7=124-86 ft Gait Level of Assist: 4 Gait Assistive Device: FWW PT Manager Of Customer Billing Goals Snf Goals PT Manager Of Customer Billing Goals Time Frame: Oct 24, 2016 Transfers (B,C,W/C) (FIM): 6 Sit to Lying (QC): 6 Lying-Sitting on Side/Bed(QC): 6 Sit to Stand (QC): 6 Rollin Roll Left to Right (QC): 6 Chair/Axg-ve-Seogf Xfer(QC): 6 Car Transfer (QC): 5 Does the Patient Walk: Yes Gait (FIM): 5 Gait distance (FIM): 5=136-07 ft Distance: 50 ft household distance Walk 10 feet (QC): 5 Walk 10ft-Uneven Surface(QC): 5 Walk 50ft with 2 Turns (QC): 5 Walk 150 ft (QC): 88 Gait Assistive Device: FWW Does the Pt use WC or Scooter?: No Stairs (FIM): 2 # of Steps: 1 Picking up an Object (QC): 88 PT Plan Treatment/Plan Treatment Plan: Continue Plan of Care Treatment Plan: Bed Mobility, Education, Functional Activity Luis, Functional Strength, Group Therapy, Gait, Safety, Therapeutic Exercise, Transfers Treatment Duration: Oct 24, 2016 Frequency: At least 5 of 7 days/Wk (IRF) Estimated Hrs Per Day: 1.5 hours per day Patient and/or Family Agrees t: Yes Safety Risks/Education Patient Education: Gait Training, Transfer Techniques, Safety Issues Teaching Recipient: Patient Teaching Methods: Demonstration, Discussion Response to Teaching: Verbalize Understanding, Return Demonstration, Reinforcement Needed Time/GCodes Time In: 1330 Time Out: 1400 Total Billed Treatment Time: 30 Total Billed Treatment 1,GT20m,EX10m G Codes Necessary: MODE Beuno ELECTRICAL AND INSTRUMENTATION MANAGER Oct 13, 2016 14:02
[2016-10-13 18:00] VITALS: BP 146/83
[2016-10-13] MEDS: OLANZapine 5 MG (ZyPREXA) TAB PO SCH (20:32)
[2016-10-13] MEDS: SERTRALINE 50 MG (ZOLOFT) TABLET PO SCH (20:32)
[2016-10-13] MEDS: inSUlin DETERMIR 1 UNIT/0.01 ML (LEVEMIR) CHARGE PER UNIT SQ SCH (20:32)
[2016-10-13] MEDS: lisINopril 20 MG (ZESTRIL) TAB PO SCH (20:33)
[2016-10-13] MEDS: DIVALPROEX EXT RELEASE 500 MG (DEPAKOTE ER) TAB PO SCH (20:33)
[2016-10-13] MEDS: SIMvastatin 20 MG (ZOCOR) TAB PO SCH (20:33)
[2016-10-13] MEDS: LUMIGAN 0.01% OPTH SOLUTION OP SCH (20:34)
[2016-10-14] MEDS: IBUPROFEN TABLET 200 MG TAB PO PRN ×3 (04:58→17:04)
[2016-10-14 05:00] VITALS: BP 146/81
[2016-10-14] MEDS: inSUlin ASPART (NovoLOG) 1 UNIT/0.01 ML (CHARGE PER UNIT) SC SCH ×4 (05:40→21:14)
[2016-10-14] MEDS: LEVOTHYROXINE 125 MCG (LEVOTHROID) TABLET PO SCH (05:42)
[2016-10-14] MEDS: OMEGA 3 (FISH OIL) 1000 MG CAP PO SCH (05:42)
[2016-10-14] MEDS: CALCIUM CARB + VIT D 600 MG (CALCARB + D) TAB PO SCH ×2 (05:42→17:03)
[2016-10-14] MEDS: metFORMIN XR 500 MG (GLUCOPHAGE XR) TAB PO SCH ×2 (05:42→21:11)
[2016-10-14] MEDS: HYDROCHLOROTHIAZIDE 12.5 MG (HCTZ) CAP PO SCH (08:45)
[2016-10-14] MEDS: TIMOLOL MALEATE 0.5% 5 ML (TIMOPTIC) BTL OU SCH (08:45)
[2016-10-14] MEDS: amLODIPine 10 MG (NORVASC) TAB PO SCH (08:45)
[2016-10-14] MEDS: ASPIRIN E.C. 81 MG (ECOTRIN) TAB PO SCH (08:45)
[2016-10-14] MEDS: DOCUSATE SODIUM 100 MG (COLACE) CAP PO SCH ×2 (08:46→21:15)
[2016-10-14] MEDS: POLYETHYLENE GLYCOL 17 GM (MIRALAX) PACK PO SCH ×2 (08:46→21:15)
[2016-10-14] MEDS: ENOXAPARIN 40 MG/0.4 ML (LOVENOX) SYR SC SCH (08:46)
--- NOTE | 2016-10-14 10:46 | Physical Therapy Daily Note ---
PT Daily Note-Current Subjective Pt. states she slept very well and is ready to work. Rates pain at 4/10 in right knee incision Pain Numeric Pain Scale: 3 Location: Right Location Body Site: Knee Pain Description: Ache Mental Status Patient Orientation: Normal For Age Transfers Functional [place] Measure 0=Not Assessed/NA 4=Minimal Assistance 1=Total Assistance 5=Supervision or Setup 2=Maximal Assistance 6=Modified [place] 3=Moderate Assistance 7=Complete IndependenceIRFPAI Quality Coding Scale 6 Independent with activity with or without an assistive device 5 Patient requires set up or clean up by helper. Patient completes activity by themselves 4 Supervision or touching assist (CGA). [place] provide cues , steadying assist 3 The helper provides less than half the effort to complete the activity 2 The helper provides more than half the effort to complete the activity 1 Dependent. The helper does all the effort to complete an activity 7 Patient refused to complete or attempt activity 9 The patient did not perform the activity before the current illness or injury 88 Not attempted due to Medical conditions or safety concerns Transfers (B, C, W/C) (FIM): 4 Scootin Rollin Supine to/from Sit: 4 (RLE in out bed) Sit to/from Stand: 5 Weight Bearing Weight Bearing Restriction: Touch Toe Bearing Location Restriction: R LE Gait Training Does the Patient Walk?: Yes Gait (FIM): 5 Distance (FIM): 3=150 ft (x2) Gait Level of Assist: 5 Gait Persons Needed: 1 Gait Assistive Device: FWW reminders and monitoring of TTWB status Exercises Supine Ex: Ankle pumps, Quad Set, Heel Slides, Short Arc Quads, Scooting, Straight leg raise (assist), Hip abd/add Supine Reps: 12 Seated Therapy Exercises: Ankle pumps, Sit to stand, Long arc quads, Hip flexion Seated Reps: 10 Assessment Current Status: Good Progress PT Short Term Goals Short Term Goals Time Frame: Oct 13, 2016 Gait (FIM): 2 Distance (FIM): 6=428-59 ft Gait Level of Assist: 4 Gait Assistive Device: FWW PT Long-Term Goals Records Officer Goals PT Long-Term Goals Time Frame: Oct 24, 2016 Transfers (B,C,W/C) (FIM): 6 Sit to Lying (QC): 6 Lying-Sitting on Side/Bed(QC): 6 Sit to Stand (QC): 6 Rollin Roll Left to Right (QC): 6 Chair/Awj-pz-Ljrvp Xfer(QC): 6 Car Transfer (QC): 5 Does the Patient Walk: Yes Gait (FIM): 5 Gait distance (FIM): 2=666-67 ft Distance: 50 ft household distance Walk 10 feet (QC): 5 Walk 10ft-Uneven Surface(QC): 5 Walk 50ft with 2 Turns (QC): 5 Walk 150 ft (QC): 88 Gait Assistive Device: FWW Does the Pt use WC or Scooter?: No Stairs (FIM): 2 # of Steps: 1 Picking up an Object (QC): 88 PT Plan Treatment/Plan Treatment Plan: Continue Plan of Care Treatment Plan: Bed Mobility, Education, Functional Activity Luis, Functional Strength, Group Therapy, Gait, Safety, Therapeutic Exercise, Transfers Treatment Duration: Oct 24, 2016 Frequency: At least 5 of 7 days/Wk (IRF) Estimated Hrs Per Day: 1.5 hours per day Patient and/or Family Agrees t: Yes Safety Risks/Education Patient Education: Gait Training, Transfer Techniques, Correct Positioning, Safety Issues Teaching Recipient: Patient Teaching Methods: Demonstration, Discussion Response to Teaching: Verbalize Understanding, Return Demonstration, Reinforcement Needed Time/GCodes Time In: 900 Time Out: 915 Total Billed Treatment Time: 15 Total Billed Treatment 1,FA15m G Codes Necessary: MODE Bueno IV THERAPY NURSE Oct 14, 2016 10:46
[2016-10-14 18:16] VITALS: BP 146/82
[2016-10-14] MEDS: lisINopril 20 MG (ZESTRIL) TAB PO SCH (21:10)
[2016-10-14] MEDS: HYDROcodone/APAP 5 MG/325 MG (LORTAB) TAB PO PRN (21:10)
[2016-10-14] MEDS: OLANZapine 5 MG (ZyPREXA) TAB PO SCH (21:10)
[2016-10-14] MEDS: SIMvastatin 20 MG (ZOCOR) TAB PO SCH (21:11)
[2016-10-14] MEDS: SERTRALINE 50 MG (ZOLOFT) TABLET PO SCH (21:11)
[2016-10-14] MEDS: DIVALPROEX EXT RELEASE 500 MG (DEPAKOTE ER) TAB PO SCH (21:11)
[2016-10-14] MEDS: inSUlin DETERMIR 1 UNIT/0.01 ML (LEVEMIR) CHARGE PER UNIT SQ SCH (21:12)
[2016-10-14] MEDS: LUMIGAN 0.01% OPTH SOLUTION OP SCH (21:15)
[2016-10-15 06:28] VITALS: BP 113/76
[2016-10-15] MEDS: inSUlin ASPART (NovoLOG) 1 UNIT/0.01 ML (CHARGE PER UNIT) SC SCH ×4 (06:31→21:27)
[2016-10-15] MEDS: metFORMIN XR 500 MG (GLUCOPHAGE XR) TAB PO SCH ×2 (06:43→21:28)
[2016-10-15] MEDS: CALCIUM CARB + VIT D 600 MG (CALCARB + D) TAB PO SCH ×2 (06:43→17:03)
[2016-10-15] MEDS: LEVOTHYROXINE 125 MCG (LEVOTHROID) TABLET PO SCH (06:43)
[2016-10-15] MEDS: OMEGA 3 (FISH OIL) 1000 MG CAP PO SCH (06:43)
[2016-10-15] MEDS: amLODIPine 10 MG (NORVASC) TAB PO SCH (08:20)
[2016-10-15] MEDS: HYDROCHLOROTHIAZIDE 12.5 MG (HCTZ) CAP PO SCH (08:20)
[2016-10-15] MEDS: ENOXAPARIN 40 MG/0.4 ML (LOVENOX) SYR SC SCH (08:21)
[2016-10-15] MEDS: DOCUSATE SODIUM 100 MG (COLACE) CAP PO SCH ×3 (08:21→21:28)
[2016-10-15] MEDS: ASPIRIN E.C. 81 MG (ECOTRIN) TAB PO SCH (08:21)
[2016-10-15] MEDS: TIMOLOL MALEATE 0.5% 5 ML (TIMOPTIC) BTL OU SCH (08:22)
[2016-10-15] MEDS: POLYETHYLENE GLYCOL 17 GM (MIRALAX) PACK PO SCH ×2 (09:00→21:28)
[2016-10-15] MEDS: IBUPROFEN TABLET 200 MG TAB PO PRN ×2 (12:29→23:39)
[2016-10-15 18:11] VITALS: BP 139/89
[2016-10-15] MEDS: LUMIGAN 0.01% OPTH SOLUTION OP SCH (21:26)
[2016-10-15] MEDS: HYDROcodone/APAP 5 MG/325 MG (LORTAB) TAB PO PRN (21:27)
[2016-10-15] MEDS: inSUlin DETERMIR 1 UNIT/0.01 ML (LEVEMIR) CHARGE PER UNIT SQ SCH (21:27)
[2016-10-15] MEDS: OLANZapine 5 MG (ZyPREXA) TAB PO SCH (21:28)
[2016-10-15] MEDS: SIMvastatin 20 MG (ZOCOR) TAB PO SCH (21:28)
[2016-10-15] MEDS: SERTRALINE 50 MG (ZOLOFT) TABLET PO SCH (21:28)
[2016-10-15] MEDS: lisINopril 20 MG (ZESTRIL) TAB PO SCH (21:28)
[2016-10-15] MEDS: DIVALPROEX EXT RELEASE 500 MG (DEPAKOTE ER) TAB PO SCH (21:28)
[2016-10-16] MEDS: HYDROcodone/APAP 5 MG/325 MG (LORTAB) TAB PO PRN ×3 (04:16→21:13)
[2016-10-16 05:09] VITALS: BP 153/87
[2016-10-16] MEDS: metFORMIN XR 500 MG (GLUCOPHAGE XR) TAB PO SCH ×2 (06:02→21:13)
[2016-10-16] MEDS: OMEGA 3 (FISH OIL) 1000 MG CAP PO SCH (06:02)
[2016-10-16] MEDS: LEVOTHYROXINE 125 MCG (LEVOTHROID) TABLET PO SCH (06:02)
[2016-10-16] MEDS: CALCIUM CARB + VIT D 600 MG (CALCARB + D) TAB PO SCH ×2 (06:03→16:12)
[2016-10-16] MEDS: inSUlin ASPART (NovoLOG) 1 UNIT/0.01 ML (CHARGE PER UNIT) SC SCH ×4 (06:05→21:17)
[2016-10-16] MEDS: ASPIRIN E.C. 81 MG (ECOTRIN) TAB PO SCH (07:39)
[2016-10-16] MEDS: ENOXAPARIN 40 MG/0.4 ML (LOVENOX) SYR SC SCH (07:39)
[2016-10-16] MEDS: amLODIPine 10 MG (NORVASC) TAB PO SCH (07:39)
[2016-10-16] MEDS: HYDROCHLOROTHIAZIDE 12.5 MG (HCTZ) CAP PO SCH (07:39)
[2016-10-16] MEDS: DOCUSATE SODIUM 100 MG (COLACE) CAP PO SCH ×2 (07:39→21:13)
[2016-10-16] MEDS: TIMOLOL MALEATE 0.5% 5 ML (TIMOPTIC) BTL OU SCH (07:40)
[2016-10-16] MEDS: POLYETHYLENE GLYCOL 17 GM (MIRALAX) PACK PO SCH ×2 (09:00→21:14)
--- NOTE | 2016-10-16 11:03 | Physical Therapy Daily Note ---
PT Daily Note-Current Subjective Pt was sitting in chair pre tx and agreeable to PT. Pt was sitting in chair with nurse call, phone, tray, all needs in reach post tx. Pain Numeric Pain Scale: 5-Moderate Pain Location Body Site: Knee (right knee) Pain Description: Ache Mental Status Patient Orientation: Normal For Age Transfers Functional [place] Measure 0=Not Assessed/NA 4=Minimal Assistance 1=Total Assistance 5=Supervision or Setup 2=Maximal Assistance 6=Modified [place] 3=Moderate Assistance 7=Complete IndependenceIRFPAI Quality Coding Scale 6 Independent with activity with or without an assistive device 5 Patient requires set up or clean up by helper. Patient completes activity by themselves 4 Supervision or touching assist (CGA). [place] provide cues , steadying assist 3 The helper provides less than half the effort to complete the activity 2 The helper provides more than half the effort to complete the activity 1 Dependent. The helper does all the effort to complete an activity 7 Patient refused to complete or attempt activity 9 The patient did not perform the activity before the current illness or injury 88 Not attempted due to Medical conditions or safety concerns Transfers (B, C, W/C) (FIM): 5 Sit to/from Stand: 5 Pt was SBA with sit to stand transfer for safety. Weight Bearing Weight Bearing Restriction: Touch Toe Bearing Location Restriction: R LE Gait Training Does the Patient Walk?: Yes Gait (FIM): 5 Distance (FIM): 3=150 ft Distance: 100', 200' Gait Level of Assist: 5 Gait Persons Needed: 1 Gait Assistive Device: FWW Pt ambulates with FWW and SBA for safety. Pt is mostly compliant with WBS, but is verbally cued to regarding TTWB status. It is suspected that patient is putting too much weight through her right leg but she states she is compliant. Exercises Seated Therapy Exercises: Ankle pumps, Long arc quads, Hip flexion, Hip abd/add , Glut set Seated Reps: 15 Standing: Hip Abduction, Hamstring curls, 3 way Ex=Flex, Abd, Ext, Marching, Unilateral stance Standing Reps: 20 NuStep Minutes: 15 NuStep Workload: 1 (no resistance to comply with WBS) Treatments Pt completes gait training to increase functional mobility and independence. Pt completes standing and seated exercises for functional LE strengthening. Pt completes seated exercises using theraband for resistance. Assessment Current Status: Good Progress Pt ambulation is increasing. PT Short Term Goals Short Term Goals Time Frame: Oct 13, 2016 Gait (FIM): 2 Distance (FIM): 6=389-17 ft Gait Level of Assist: 4 Gait Assistive Device: FWW PT Flight Control Manager Goals Senior Care Goals PT Flight Control Manager Goals Time Frame: Oct 24, 2016 Transfers (B,C,W/C) (FIM): 6 Sit to Lying (QC): 6 Lying-Sitting on Side/Bed(QC): 6 Sit to Stand (QC): 6 Rollin Roll Left to Right (QC): 6 Chair/Lqr-sl-Phcvb Xfer(QC): 6 Car Transfer (QC): 5 Does the Patient Walk: Yes Gait (FIM): 5 Gait distance (FIM): 5=330-08 ft Distance: 50 ft household distance Walk 10 feet (QC): 5 Walk 10ft-Uneven Surface(QC): 5 Walk 50ft with 2 Turns (QC): 5 Walk 150 ft (QC): 88 Gait Assistive Device: FWW Does the Pt use WC or Scooter?: No Stairs (FIM): 2 # of Steps: 1 Picking up an Object (QC): 88 PT Plan Problem List Problem List: Activity Tolerance, Functional Strength, Safety, Balance, Gait, Transfer, Bed Mobility, ROM Treatment/Plan Treatment Plan: Continue Plan of Care Treatment Plan: Bed Mobility, Education, Functional Activity Luis, Functional Strength, Group Therapy, Gait, Safety, Therapeutic Exercise, Transfers Treatment Duration: Oct 24, 2016 Frequency: At least 5 of 7 days/Wk (IRF) Estimated Hrs Per Day: 1.5 hours per day Patient and/or Family Agrees t: Yes Safety Risks/Education Patient Education: Gait Training, Transfer Techniques, Reviewed Precautions, Correct Positioning, Safety Issues Teaching Recipient: Patient Teaching Methods: Demonstration, Discussion Response to Teaching: Verbalize Understanding, Reinforcement Needed Time/GCodes Time In: 1000 Time Out: 1100 Total Billed Treatment Time: 60 Total Billed Treatment 1 visit EX 45 GT 15 FELIX BLEDSOE PT Oct 16, 2016 11:02
--- NOTE | 2016-10-16 11:19 | Occupational Ther Daily Note ---
OT Current Status-Daily Note Subjective Pt seen in room, up in bed, agreeable to OT. Reported R knee had throbbed last night but was better now. Pain not rated. Appearance Alert, cooperative Mental Status/Objective Functional [place] Measure 0=Not Assessed/NA 4=Minimal Assistance 1=Total Assistance 5=Supervision or Setup 2=Maximal Assistance 6=Modified [place] 3=Moderate Assistance 7=Complete [place] ADL-Treatment Pt got out of bed with SBA and walked to and from bathroom, SBA, FWW, with no LOB Functional [place] Measure 0=Not Assessed/NA 4=Minimal Assistance 1=Total Assistance 5=Supervision or Setup 2=Maximal Assistance 6=Modified [place] 3=Moderate Assistance 7=Complete IndependenceIRFPAI Quality Coding Scale 6 Independent with activity with or without an assistive device 5 Patient requires set up or clean up by helper. Patient completes activity by themselves 4 Supervision or touching assist (CGA). [place] provide cues , steadying assist 3 The helper provides less than half the effort to complete the activity 2 The helper provides more than half the effort to complete the activity 1 Dependent. The helper does all the effort to complete an activity 7 Patient refused to complete or attempt activity 9 The patient did not perform the activity before the current illness or injury 88 Not attempted due to Medical conditions or safety concerns Grooming (FIM): 6 (Stood at sink to brush teeth, comb hair. Washed face and hands in shower. ) Bathing (FIM): 5 (Washed and dried all parts. Turned water on and off, retrieved towel from bar. Still needs a little SBA when standing in shower. Shower bench, grab bar, FWW, hand held shower) Upper Body (FIM): 5 (Doffed and donned clothing with setup. Including bra) Lower Body Dressing (FIM): 5 (Doffed and donned clothing, SBA when standing to manage clothing. Used dressing stick to take one socks off but put both socks on without use of sock aid. FWW for balance) Toileting (FIM): 6 (Managed clothing and hygiene mod I. Tall toilet, grab bar, FWW) Toilet/Commode Transfer (FIM): 6 (On and off tall toilet without assistance. Grab bars, FWW) Shower Transfer(FIM): 5 (SBA getting in and out of shower, grab bar, shower seat, FWW. ) Other Treatment Pt walked to gym with SBA, FWW. Did 12 min bilat UE exercise with arm bike set at 15W resistance. Pt only needed 2 cues to pedal faster - usually goes extremely slow. Pt also did arc activity, nuts and bolts activity with 2# weight on each arm (increased weight). pt stated that "I can really feel the difference with the increased weight!". Pt walked back to room with SBA, FWW, toileted and sat up in recliner, all needs met. Pt feels like she will be able to discharge on Sunday. Education OT Patient Education: Exercise program, Progress toward Goal/Update tx plan, Purpose of tx/functional activities, Safety issues, Transfer techniques Teaching Recipient: Patient Teaching Methods: Discussion Response to Teaching: Verbalize Understanding, Reinforcement Needed OT Short Term Goals Short Term Goals Time Frame: Oct 13, 2016 Lower Body Dressing(FIM): 4 Toileting(FIM): 4 Toilet/Commode Transfer(FIM): 5 Additional Short Term Goals: 1-Demonstrate ADL Tasks, 2-Verbalize Understanding , 3-ImproveStrength/Luis 1=Demonstrate adherence to instructed precautions during ADL tasks. 2=Patient will verbalize/demonstrate understanding of assistive devices/ modifications for ADL. 3=Patient will improve strength/tolerance for activity to enable patient to perform ADL's. OT Senior Care Goals Senior Care Goals Time Frame: Oct 24, 2016 Eating (FIM): 6 Eating (QC): 6 Groomin Oral Hygiene (QC): 6 Bathing(FIM): 6 Shower/Bathe Self (QC): 6 Upper Body Dressing(FIM): 6 Upper Body Dressing (QC): 6 Lower Body Dressing(FIM): 6 Lower Body Dressing (QC): 6 On/Off Footwear (QC): 6 Toileting(FIM): 6 Toileting Hygiene (QC): 6 Toilet/Commode Transfer(FIM): 6 Toilet/Commode Transfer (QC): 6 Tub Transfer(FIM): 6 Shower Transfer(FIM): 6 Additional Goals: 1-Demonstrate ADL Tasks, 2-Verbalize Understanding, 3- ImproveStrength/Luis 1=Demonstrate adherence to instructed precautions during ADL tasks. 2=Patient will verbalize/demonstrate understanding of assistive devices/ modifications for ADL. 3=Patient will improve strength/tolerance for activity to enable patient to perform ADL's. OT Education/Plan Problem List/Assessment Pt would benefit from skilled OT to increase her independence in basic self care to allow her to safely return to her home and to decrease caregiver burden Discharge Recommendations Plan/Recommendations: Continue POC Treatment Plan/Plan of Care Patient would benefit from OT for education, treatment and training to promote independence in ADL's, mobility, safety and/or upper extremity function for ADL' s. Plan of Care: ADL Retraining, Functional Mobility, Group Exercise/Act as Ind ( education, exercise, activ maya, funct mobility, problem solving, socialization) , UE Funct Exercise/Act, UE Neuromus Re-Ed/Coord Treatment Duration: Oct 24, 2016 Frequency: At least 5 of 7 days/Wk (IRF) Estimated Hrs Per Day: 1.5 hours per day Agreement: Yes Rehab Potential: Good Time/GCodes Start Time: 08:30 Stop Time: 10:00 Total Time Billed (hr/min): 90 Billed Treatment Time visit, 35 minutes ADL, 55 minutes exercise KASSIE DUMONT OT Oct 16, 2016 11:19
--- NOTE | 2016-10-16 14:11 | Physical Therapy Daily Note ---
PT Daily Note-Current Subjective Pt was sitting in chair prior to tx and agreeable to PT. Pt was sitting in chair with nurse call, phone, tray, all needs in reach post tx. Pain Numeric Pain Scale: 4 Location Body Site: Thigh Comment: 4 pain in right thigh and knee Mental Status Patient Orientation: Normal For Age Transfers Functional [place] Measure 0=Not Assessed/NA 4=Minimal Assistance 1=Total Assistance 5=Supervision or Setup 2=Maximal Assistance 6=Modified [place] 3=Moderate Assistance 7=Complete IndependenceIRFPAI Quality Coding Scale 6 Independent with activity with or without an assistive device 5 Patient requires set up or clean up by helper. Patient completes activity by themselves 4 Supervision or touching assist (CGA). [place] provide cues , steadying assist 3 The helper provides less than half the effort to complete the activity 2 The helper provides more than half the effort to complete the activity 1 Dependent. The helper does all the effort to complete an activity 7 Patient refused to complete or attempt activity 9 The patient did not perform the activity before the current illness or injury 88 Not attempted due to Medical conditions or safety concerns Transfers (B, C, W/C) (FIM): 5 Supine to/from Sit: 5 Sit to/from Stand: 5 Pt completes supine to sit and sit to stand with SBA for safety. Weight Bearing Weight Bearing Restriction: Touch Toe Bearing Location Restriction: R LE Pt tends to put more than TTWBing weight through her right LE, is verbally cued to maintain WBS. Gait Training Does the Patient Walk?: Yes Distance (FIM): 3=150 ft Distance: 100', 150' Gait Level of Assist: 5 Gait Persons Needed: 1 Gait Assistive Device: FWW Pt ambulates with FWW and SBA for safety. Pt is verbally cued to maintain WBS. Exercises Supine Ex: Ankle pumps, Quad Set, Heel Slides, Short Arc Quads, Straight leg raise, Hip abd/add Supine Reps: 20 Seated Therapy Exercises: Long arc quads, Hip flexion, Hamstring Curls, Hip abd /add Seated Reps: 20 Treatments Pt completes gait training to increase functional mobility. Pt completes supine exercises and seated exercises with theraband for resistance for functional LE strengthening. Assessment Current Status: Good Progress Pt ambulation is improving. PT Short Term Goals Short Term Goals Time Frame: Oct 13, 2016 Gait (FIM): 2 (met) Distance (FIM): 3=370-30 ft Gait Level of Assist: 4 (met) Gait Assistive Device: FWW PT Records Management Clerk Goals Records Management Clerk Goals PT Custodial Goals Time Frame: Oct 24, 2016 Transfers (B,C,W/C) (FIM): 6 Sit to Lying (QC): 6 Lying-Sitting on Side/Bed(QC): 6 Sit to Stand (QC): 6 Rollin Roll Left to Right (QC): 6 Chair/Bjl-rr-Ftnhi Xfer(QC): 6 Car Transfer (QC): 5 Does the Patient Walk: Yes Gait (FIM): 5 Gait distance (FIM): 1=085-34 ft Distance: 50 ft household distance Walk 10 feet (QC): 5 Walk 10ft-Uneven Surface(QC): 5 Walk 50ft with 2 Turns (QC): 5 Walk 150 ft (QC): 88 Gait Assistive Device: FWW Does the Pt use WC or Scooter?: No Stairs (FIM): 2 # of Steps: 1 Picking up an Object (QC): 88 PT Plan Problem List Problem List: Activity Tolerance, Functional Strength, Safety, Balance, Gait, Transfer, Bed Mobility, ROM Treatment/Plan Treatment Plan: Continue Plan of Care Treatment Plan: Bed Mobility, Education, Functional Activity Luis, Functional Strength, Group Therapy, Gait, Safety, Therapeutic Exercise, Transfers Treatment Duration: Oct 24, 2016 Frequency: At least 5 of 7 days/Wk (IRF) Estimated Hrs Per Day: 1.5 hours per day Patient and/or Family Agrees t: Yes Safety Risks/Education Patient Education: Gait Training, Transfer Techniques, Reviewed Precautions, Correct Positioning, Safety Issues Teaching Recipient: Patient Teaching Methods: Demonstration, Discussion Response to Teaching: Verbalize Understanding, Reinforcement Needed Education on what TTWB feels like--"don't break an eggshell". Time/GCodes Time In: 1335 Time Out: 1405 Total Billed Treatment Time: 30 Total Billed Treatment 1 visit 15 GT 15 EX KALIA KITCHEN PT Oct 16, 2016 14:11
[2016-10-16] MEDS: IBUPROFEN TABLET 200 MG TAB PO PRN (14:20)
[2016-10-16 17:57] VITALS: BP 125/75
--- NOTE | 2016-10-16 21:00 | PM & R (SOAP) Progress Note ---
Subjective Time Seen by Provider: 20:45 Subjective/Events-last exam Patient was seen in her room this AM Patient SBA for transfers Labs and therapy notes reviewed Objective Exam Last Set of Vital Signs Vital Signs Date Time Temp Pulse Resp B/P (MAP) Pulse Ox O2 Delivery O2 Flow Rate FiO2 10/16/16 17:57 98.4 98 18 125/75 94 Room Air Capillary Refill : Less Than 3 Seconds I&O Intake and Output 10/17/16 00:00 Intake Total 950 ml Balance 950 ml Intake Oral 950 ml # Voids 5 # Bowel Movements 1 General: Alert, Oriented X3, Cooperative, No Acute Distress HEENT: Atraumatic, PERRLA, EOMI, Mucous Memb Moist/[place] Neck: Supple, No JVD Lungs: Clear to Auscultation Heart: Regular Rate Abdomen: Normal Bowel Sounds, Soft, No Tenderness Extremities: Other (ice on rt knee with dry dressing in place) Neuro: Other (weakness rt leg due to recent frx) Psych/Mental Status: Mental Status NL Results Lab Laboratory Tests 10/14/16 05:40: Glucometer 72 10/14/16 11:02: Glucometer 212H 10/14/16 16:18: Glucometer 135H 10/14/16 21:09: Glucometer 317H 10/15/16 05:34: Glucometer 50*L 10/15/16 06:43: Glucometer 121H 10/15/16 11:23: Glucometer 183H 10/15/16 16:07: Glucometer 259H 10/15/16 21:23: Glucometer 262H 10/16/16 06:04: Glucometer 80 10/16/16 11:02: Glucometer 188H 10/16/16 16:14: Glucometer 171H Assessment/Plan Assessment RT Tibial plaateua frx s/p orip TTWB RLE postop anemia DM-meds being adjusted with-improved control HTN Plan Continue PT/OT ST has signed off Patient SBA for transfers Appreciate DR Schumacher note F/U with DR Soto et al re further insulin adjustment as needed Next Team Conference 10/18/16 Discharge set tentatively for 10/20/16 LEVON ORTEGA MD Oct 16, 2016 21:00
[2016-10-16] MEDS: lisINopril 20 MG (ZESTRIL) TAB PO SCH (21:12)
[2016-10-16] MEDS: DIVALPROEX EXT RELEASE 500 MG (DEPAKOTE ER) TAB PO SCH (21:12)
[2016-10-16] MEDS: inSUlin DETERMIR 1 UNIT/0.01 ML (LEVEMIR) CHARGE PER UNIT SQ SCH (21:12)
[2016-10-16] MEDS: SERTRALINE 50 MG (ZOLOFT) TABLET PO SCH (21:13)
[2016-10-16] MEDS: SIMvastatin 20 MG (ZOCOR) TAB PO SCH (21:13)
[2016-10-16] MEDS: OLANZapine 5 MG (ZyPREXA) TAB PO SCH (21:13)
[2016-10-16] MEDS: LUMIGAN 0.01% OPTH SOLUTION OP SCH (21:18)
[2016-10-17] MEDS: HYDROcodone/APAP 5 MG/325 MG (LORTAB) TAB PO PRN ×4 (05:03→21:03)
[2016-10-17 05:28] VITALS: BP 153/85
[2016-10-17] MEDS: inSUlin ASPART (NovoLOG) 1 UNIT/0.01 ML (CHARGE PER UNIT) SC SCH ×4 (05:33→21:02)
[2016-10-17] MEDS: LEVOTHYROXINE 125 MCG (LEVOTHROID) TABLET PO SCH (06:33)
[2016-10-17] MEDS: CALCIUM CARB + VIT D 600 MG (CALCARB + D) TAB PO SCH ×2 (06:33→16:25)
[2016-10-17] MEDS: metFORMIN XR 500 MG (GLUCOPHAGE XR) TAB PO SCH ×2 (06:34→21:03)
[2016-10-17] MEDS: OMEGA 3 (FISH OIL) 1000 MG CAP PO SCH (06:34)
[2016-10-17] MEDS: TIMOLOL MALEATE 0.5% 5 ML (TIMOPTIC) BTL OU SCH (09:18)
[2016-10-17] MEDS: ASPIRIN E.C. 81 MG (ECOTRIN) TAB PO SCH (09:18)
[2016-10-17] MEDS: amLODIPine 10 MG (NORVASC) TAB PO SCH (09:18)
[2016-10-17] MEDS: DOCUSATE SODIUM 100 MG (COLACE) CAP PO SCH ×3 (09:18→20:23)
[2016-10-17] MEDS: ENOXAPARIN 40 MG/0.4 ML (LOVENOX) SYR SC SCH (09:18)
[2016-10-17] MEDS: HYDROCHLOROTHIAZIDE 12.5 MG (HCTZ) CAP PO SCH (09:18)
[2016-10-17] MEDS: POLYETHYLENE GLYCOL 17 GM (MIRALAX) PACK PO SCH ×2 (09:32→20:23)
--- NOTE | 2016-10-17 11:02 | Physical Therapy Daily Note ---
PT Daily Note-Current Subjective Pt sitting in recliner upon arrival. Pt agrees to PT. Pain Numeric Pain Scale: 3 Location: Right, Incisional Location Body Site: Knee Pain Description: Ache Mental Status Patient Orientation: Person, Place, Time, Situation Transfers Functional [place] Measure 0=Not Assessed/NA 4=Minimal Assistance 1=Total Assistance 5=Supervision or Setup 2=Maximal Assistance 6=Modified [place] 3=Moderate Assistance 7=Complete IndependenceIRFPAI Quality Coding Scale 6 Independent with activity with or without an assistive device 5 Patient requires set up or clean up by helper. Patient completes activity by themselves 4 Supervision or touching assist (CGA). [place] provide cues , steadying assist 3 The helper provides less than half the effort to complete the activity 2 The helper provides more than half the effort to complete the activity 1 Dependent. The helper does all the effort to complete an activity 7 Patient refused to complete or attempt activity 9 The patient did not perform the activity before the current illness or injury 88 Not attempted due to Medical conditions or safety concerns Scootin Sit to/from Stand: 5 Sit to Stand (QC): 5 Weight Bearing Weight Bearing Restriction: Touch Toe Bearing Location Restriction: R LE Gait Training Does the Patient Walk?: Yes Distance (FIM): 3=150 ft Distance: 200' Walk 10 feet (QC): 5 Walk 50 ft with 2 Turns(QC): 5 Walk 150 ft (QC): 5 Gait Level of Assist: 5 Gait Persons Needed: 1 Gait Assistive Device: FWW Pt has slow but steady gait, no LOB. Pt practiced on stepping backwards when having to turn around from sink, etc. Pt remembered to use strong/good first to step back. Wheelchair Training Does the Pt Use a Wheelchair?: No Exercises Seated Therapy Exercises: Ankle pumps, Long arc quads, Hip flexion, Kicking activity Seated Reps: 20 NuStep Minutes: 10 NuStep Workload: 6 (4 for 1st 5m then up to 6) Treatments Pt transfers from recliner to standing using FWW at A. Pt ambulates using FWW at [facility]. Pt uses NuStep for 10m at Workload 4 for first 5m then up to 6 for remaining 5m. Pt completed Seated Ex in chair. Pt returned to room to use restroom and rest in recliner at end of tx with all needs met. Assessment Current Status: Good Progress Pt continues to improve with independence and safety of transfers and ambulation. PT Short Term Goals Short Term Goals Time Frame: Oct 13, 2016 Gait (FIM): 2 (met) Distance (FIM): 0=413-08 ft Gait Level of Assist: 4 (met) Gait Assistive Device: FWW PT Shelter Goals Shelter Goals PT Shelter Goals Time Frame: Oct 24, 2016 Transfers (B,C,W/C) (FIM): 6 Sit to Lying (QC): 6 Lying-Sitting on Side/Bed(QC): 6 Sit to Stand (QC): 6 Rollin Roll Left to Right (QC): 6 Chair/Vmy-ds-Ktbnb Xfer(QC): 6 Car Transfer (QC): 5 Does the Patient Walk: Yes Gait (FIM): 5 Gait distance (FIM): 3=463-74 ft Distance: 50 ft household distance Walk 10 feet (QC): 5 Walk 10ft-Uneven Surface(QC): 5 Walk 50ft with 2 Turns (QC): 5 Walk 150 ft (QC): 88 Gait Assistive Device: FWW Does the Pt use WC or Scooter?: No Stairs (FIM): 2 # of Steps: 1 Picking up an Object (QC): 88 PT Plan Problem List Problem List: Activity Tolerance, Functional Strength Treatment/Plan Treatment Plan: Continue Plan of Care Treatment Plan: Bed Mobility, Education, Functional Activity Luis, Functional Strength, Group Therapy, Gait, Safety, Therapeutic Exercise, Transfers Treatment Duration: Oct 24, 2016 Frequency: At least 5 of 7 days/Wk (IRF) Estimated Hrs Per Day: 1.5 hours per day Patient and/or Family Agrees t: Yes Safety Risks/Education Patient Education: Gait Training, Transfer Techniques, Correct Positioning, Safety Issues Teaching Recipient: Patient Teaching Methods: Discussion Response to Teaching: Verbalize Understanding Time/GCodes Time In: 1000 Time Out: 1100 Total Billed Treatment Time: 60 Total Billed Treatment visit, GT (15m), FA (15m) & EX x2 (30m) VASHTI MANZO PTA Oct 17, 2016 11:02
--- NOTE | 2016-10-17 11:14 | Occupational Ther Daily Note ---
OT Current Status-Daily Note Subjective Pt seen in room, up in bed, agreeable to OT. Slept better last night. No pain mentioned Appearance Alert, cooperative Mental Status/Objective Functional [place] Measure 0=Not Assessed/NA 4=Minimal Assistance 1=Total Assistance 5=Supervision or Setup 2=Maximal Assistance 6=Modified [place] 3=Moderate Assistance 7=Complete [place] ADL-Treatment Pt walked with SBA, FWW to get clean clothes out of the closet before showering. She lost her balance briefly when stepping back from closet - problem -solved with patient on stepping back before moving walker when backing up from closet or sink so that she maintains a wider base of support. Pt tried it at the sink and said she felt steadier. Functional [place] Measure 0=Not Assessed/NA 4=Minimal Assistance 1=Total Assistance 5=Supervision or Setup 2=Maximal Assistance 6=Modified [place] 3=Moderate Assistance 7=Complete IndependenceIRFPAI Quality Coding Scale 6 Independent with activity with or without an assistive device 5 Patient requires set up or clean up by helper. Patient completes activity by themselves 4 Supervision or touching assist (CGA). [place] provide cues , steadying assist 3 The helper provides less than half the effort to complete the activity 2 The helper provides more than half the effort to complete the activity 1 Dependent. The helper does all the effort to complete an activity 7 Patient refused to complete or attempt activity 9 The patient did not perform the activity before the current illness or injury 88 Not attempted due to Medical conditions or safety concerns Grooming (FIM): 6 (brushed teeth and hair, standing at the sink, WW for balance. Washed face and hands in shower. ) Bathing (FIM): 6 (Washed and dried all parts except back, in shower. Turned water on and off and retrieved towel from bar. Shower bench, grab bars, hand held shower. ) Upper Body (FIM): 5 (Pt stood at closet to recrieve clean clothes, SBA, with 1X LOB which she corrected. Doffed and donned bra and shirt without assistance) Lower Body Dressing (FIM): 5 (Pt stood at closet to recrieve clean clothes, SBA , with 1X LOB which she corrected. Doffed and donned pants and slipper socks, SBA. used dressing stick to take socks off and sock aid to don them (crossing her R leg hurts at the knee)) Toileting (FIM): 6 (Managed clothing and hygiene without help. Tall toilet, grab bar, FWW) Toilet/Commode Transfer (FIM): 6 (On and off tall toilet, FWW, grab bar) Shower Transfer(FIM): 5 (SBA stepping in and out of shower, getting on and off shower bench. Grab bar, FWW) Other Treatment Pt walked with SBA, FWW to gym. Did 14 minutes bilat UE exercise with arm bike set at 15W resistance (increased time), working at slightly faster rate (just a couple reminders to work fast enough to turn clock over on arm bike) and taking just one brief break to take meds. Also did bilat tabletop activities with 2# weight on each arm - pegs, clip dominoes - tolerating activity without additional rest breaks but commenting on noticing the increased resistance. All exercise is to strengthen arms for maintaining weight bearing status and standing safely during ADLs. Pt walked back to room, toileted and was left up in recliner, all needs met. Education OT Patient Education: Exercise program, Progress toward Goal/Update tx plan, Purpose of tx/functional activities Teaching Recipient: Patient Teaching Methods: Discussion Response to Teaching: Verbalize Understanding OT Short Term Goals Short Term Goals Time Frame: Oct 13, 2016 Lower Body Dressing(FIM): 4 Toileting(FIM): 4 Toilet/Commode Transfer(FIM): 5 Additional Short Term Goals: 1-Demonstrate ADL Tasks, 2-Verbalize Understanding , 3-ImproveStrength/Luis 1=Demonstrate adherence to instructed precautions during ADL tasks. 2=Patient will verbalize/demonstrate understanding of assistive devices/ modifications for ADL. 3=Patient will improve strength/tolerance for activity to enable patient to perform ADL's. OT Senior Living Goals Piecer Up Goals Time Frame: Oct 24, 2016 Eating (FIM): 6 Eating (QC): 6 Groomin Oral Hygiene (QC): 6 Bathing(FIM): 6 Shower/Bathe Self (QC): 6 Upper Body Dressing(FIM): 6 Upper Body Dressing (QC): 6 Lower Body Dressing(FIM): 6 Lower Body Dressing (QC): 6 On/Off Footwear (QC): 6 Toileting(FIM): 6 Toileting Hygiene (QC): 6 Toilet/Commode Transfer(FIM): 6 Toilet/Commode Transfer (QC): 6 Tub Transfer(FIM): 6 Shower Transfer(FIM): 6 Additional Goals: 1-Demonstrate ADL Tasks, 2-Verbalize Understanding, 3- ImproveStrength/Luis 1=Demonstrate adherence to instructed precautions during ADL tasks. 2=Patient will verbalize/demonstrate understanding of assistive devices/ modifications for ADL. 3=Patient will improve strength/tolerance for activity to enable patient to perform ADL's. OT Education/Plan Problem List/Assessment Pt would benefit from skilled OT to increase her independence in basic self care to allow her to safely return to her home and to decrease caregiver burden Discharge Recommendations Plan/Recommendations: Continue POC Treatment Plan/Plan of Care Patient would benefit from OT for education, treatment and training to promote independence in ADL's, mobility, safety and/or upper extremity function for ADL' s. Plan of Care: ADL Retraining, Functional Mobility, Group Exercise/Act as Ind ( education, exercise, activ maya, funct mobility, problem solving, socialization) , UE Funct Exercise/Act, UE Neuromus Re-Ed/Coord Treatment Duration: Oct 24, 2016 Frequency: At least 5 of 7 days/Wk (IRF) Estimated Hrs Per Day: 1.5 hours per day Agreement: Yes Rehab Potential: Good Time/GCodes Start Time: 08:30 Stop Time: 10:00 Total Time Billed (hr/min): 90 Billed Treatment Time visit, 35 minutes ADL, 55 minutes exercise KASSIE DUMONT OT Oct 17, 2016 11:14
--- NOTE | 2016-10-17 11:18 | PM & R (SOAP) Progress Note ---
Subjective Time Seen by Provider: 07:35 Subjective/Events-last exam Patient was seen in her room this AM Patient SBA for transfers,Accuchecks noted Objective Exam Last Set of Vital Signs Vital Signs Date Time Temp Pulse Resp B/P (MAP) Pulse Ox O2 Delivery O2 Flow Rate FiO2 10/17/16 09:00 Room Air 10/17/16 05:28 97.1 90 18 153/85 94 Capillary Refill : Less Than 3 Seconds I&O Intake and Output 10/18/16 00:00 Intake Total 250 ml Balance 250 ml Intake Oral 250 ml # Voids 2 General: Alert, Oriented X3, Cooperative, No Acute Distress HEENT: Atraumatic, PERRLA, EOMI, Mucous Memb Moist/[place] Neck: Supple, No JVD Lungs: Clear to Auscultation Heart: Regular Rate Abdomen: Normal Bowel Sounds, Soft, No Tenderness Extremities: Other (ice on rt knee with dry dressing in place) Neuro: Other (weakness rt leg due to recent frx) Psych/Mental Status: Mental Status NL Results Lab Laboratory Tests 10/14/16 16:18: Glucometer 135H 10/14/16 21:09: Glucometer 317H 10/15/16 05:34: Glucometer 50*L 10/15/16 06:43: Glucometer 121H 10/15/16 11:23: Glucometer 183H 10/15/16 16:07: Glucometer 259H 10/15/16 21:23: Glucometer 262H 10/16/16 06:04: Glucometer 80 10/16/16 11:02: Glucometer 188H 10/16/16 16:14: Glucometer 171H 10/16/16 21:11: Glucometer 261H 10/17/16 05:08: Glucometer 70 Assessment/Plan Assessment RT Tibial plaateua frx s/p orip TTWB RLE postop anemia DM-meds adjusted with-improved control HTN controlled Plan Continue PT/OT ST has signed off Appreciate DR Schumacher note F/U with DR Soto et al re further insulin adjustment as needed Next Team Conference tomorrow 10/18/16 Discharge remains set tentatively for 10/20/16 LEVON ORTEGA MD Oct 17, 2016 11:18
--- NOTE | 2016-10-17 15:10 | Physical Therapy Daily Note ---
PT Daily Note-Current Subjective Pt sitting in recliner upon arrival. Pt agrees to PT. Pain Numeric Pain Scale: 3 Location: Right, Incisional Location Body Site: Knee Pain Description: Ache Mental Status Patient Orientation: Person, Place, Time, Situation Transfers Functional [place] Measure 0=Not Assessed/NA 4=Minimal Assistance 1=Total Assistance 5=Supervision or Setup 2=Maximal Assistance 6=Modified [place] 3=Moderate Assistance 7=Complete IndependenceIRFPAI Quality Coding Scale 6 Independent with activity with or without an assistive device 5 Patient requires set up or clean up by helper. Patient completes activity by themselves 4 Supervision or touching assist (CGA). [place] provide cues , steadying assist 3 The helper provides less than half the effort to complete the activity 2 The helper provides more than half the effort to complete the activity 1 Dependent. The helper does all the effort to complete an activity 7 Patient refused to complete or attempt activity 9 The patient did not perform the activity before the current illness or injury 88 Not attempted due to Medical conditions or safety concerns Scootin Sit to/from Stand: 5 Sit to Stand (QC): 5 Weight Bearing Weight Bearing Restriction: Touch Toe Bearing Location Restriction: R LE Gait Training Does the Patient Walk?: Yes Distance (FIM): 3=150 ft Distance: 150' Walk 10 feet (QC): 5 Walk 50 ft with 2 Turns(QC): 5 Walk 150 ft (QC): 5 Gait Level of Assist: 5 Gait Persons Needed: 1 Gait Assistive Device: FWW Pt has a slow but steady gait, no LOB. Wheelchair Training Does the Pt Use a Wheelchair?: No Exercises Seated Therapy Exercises: Ankle pumps, Long arc quads, Hip flexion, Kicking activity Seated Reps: 20 Treatments Pt transfers from recliner to standing at [facility] using FWW. Pt ambulates suing FWW at [facility]. Pt completes Seated Ex in chair. Pt returns to room to rest in recliner with all needs met at end of tx. Assessment Current Status: Good Progress Pt is improving with independence and safety of transfers and mobility. PT Short Term Goals Short Term Goals Time Frame: Oct 13, 2016 Gait (FIM): 2 (met) Distance (FIM): 0=246-21 ft Gait Level of Assist: 4 (met) Gait Assistive Device: FWW PT Photovoltaic Technician Goals Photovoltaic Technician Goals PT Photovoltaic Technician Goals Time Frame: Oct 24, 2016 Transfers (B,C,W/C) (FIM): 6 Sit to Lying (QC): 6 Lying-Sitting on Side/Bed(QC): 6 Sit to Stand (QC): 6 Rollin Roll Left to Right (QC): 6 Chair/Msc-vf-Xmilb Xfer(QC): 6 Car Transfer (QC): 5 Does the Patient Walk: Yes Gait (FIM): 5 Gait distance (FIM): 9=837-08 ft Distance: 50 ft household distance Walk 10 feet (QC): 5 Walk 10ft-Uneven Surface(QC): 5 Walk 50ft with 2 Turns (QC): 5 Walk 150 ft (QC): 88 Gait Assistive Device: FWW Does the Pt use WC or Scooter?: No Stairs (FIM): 2 # of Steps: 1 Picking up an Object (QC): 88 PT Plan Problem List Problem List: Activity Tolerance, Functional Strength Treatment/Plan Treatment Plan: Continue Plan of Care Treatment Plan: Bed Mobility, Education, Functional Activity Luis, Functional Strength, Group Therapy, Gait, Safety, Therapeutic Exercise, Transfers Treatment Duration: Oct 24, 2016 Frequency: At least 5 of 7 days/Wk (IRF) Estimated Hrs Per Day: 1.5 hours per day Patient and/or Family Agrees t: Yes Safety Risks/Education Patient Education: Gait Training, Transfer Techniques, Correct Positioning, Safety Issues Teaching Recipient: Patient Teaching Methods: Discussion Response to Teaching: Verbalize Understanding Time/GCodes Time In: 1330 Time Out: 1400 Total Billed Treatment Time: 30 Total Billed Treatment visit, GT (15m) & EX (15m) VASHTI MANZO PTA Oct 17, 2016 15:10
[2016-10-17 17:38] VITALS: BP 152/81
[2016-10-17 17:57] LABS: BILIRUBIN,URINE NEGATIVE (NEGATIVE); KETONES,URINE NEGATIVE (NEGATIVE); LEUKOCYTE ESTERASE ,URINE 3+ (NEGATIVE); NITRITE,URINE NEGATIVE (NEGATIVE); PH,URINE 6.5 (5-9); PROTEIN,URINE NEGATIVE (NEGATIVE); UROBILINOGEN,URINE NORMAL (NORMAL)
[2016-10-17 18:06] LABS: SQUAMOUS EPITHELIAL CELL,UR 0-2 /HPF; WBC,URINE TNTC /HPF
[2016-10-17] MEDS: SIMvastatin 20 MG (ZOCOR) TAB PO SCH (20:22)
[2016-10-17] MEDS: lisINopril 20 MG (ZESTRIL) TAB PO SCH (20:22)
[2016-10-17] MEDS: OLANZapine 5 MG (ZyPREXA) TAB PO SCH (20:22)
[2016-10-17] MEDS: LUMIGAN 0.01% OPTH SOLUTION OP SCH (20:22)
[2016-10-17] MEDS: SERTRALINE 50 MG (ZOLOFT) TABLET PO SCH (20:22)
[2016-10-17] MEDS: DIVALPROEX EXT RELEASE 500 MG (DEPAKOTE ER) TAB PO SCH (20:22)
[2016-10-17] MEDS: inSUlin DETERMIR 1 UNIT/0.01 ML (LEVEMIR) CHARGE PER UNIT SQ SCH (21:02)
[2016-10-18 05:15] VITALS: BP 133/81
[2016-10-18] MEDS: inSUlin ASPART (NovoLOG) 1 UNIT/0.01 ML (CHARGE PER UNIT) SC SCH ×4 (05:21→20:57)
[2016-10-18] MEDS: CALCIUM CARB + VIT D 600 MG (CALCARB + D) TAB PO SCH ×2 (06:02→17:21)
[2016-10-18] MEDS: OMEGA 3 (FISH OIL) 1000 MG CAP PO SCH (06:02)
[2016-10-18] MEDS: LEVOTHYROXINE 125 MCG (LEVOTHROID) TABLET PO SCH (06:02)
[2016-10-18] MEDS: metFORMIN XR 500 MG (GLUCOPHAGE XR) TAB PO SCH ×2 (06:02→21:00)
[2016-10-18] MEDS: DOCUSATE SODIUM 100 MG (COLACE) CAP PO SCH ×2 (09:51→20:59)
[2016-10-18] MEDS: amLODIPine 10 MG (NORVASC) TAB PO SCH (09:51)
[2016-10-18] MEDS: ASPIRIN E.C. 81 MG (ECOTRIN) TAB PO SCH (09:52)
[2016-10-18] MEDS: HYDROCHLOROTHIAZIDE 12.5 MG (HCTZ) CAP PO SCH (09:52)
[2016-10-18] MEDS: HYDROcodone/APAP 5 MG/325 MG (LORTAB) TAB PO PRN ×4 (09:52→22:31)
[2016-10-18] MEDS: POLYETHYLENE GLYCOL 17 GM (MIRALAX) PACK PO SCH ×2 (09:57→20:59)
--- NOTE | 2016-10-18 10:22 | PM & R (SOAP) Progress Note ---
Subjective Time Seen by Provider: 10:15 Subjective/Events-last exam Patient was seen in common area of unit this AM Patient C/O dysuria U/A and culture indicates UTI-Patient has hx of utis -will rx.Patient SBA for transfers and ambulating on unit with Therapy with walker Review of Systems Genitourinary: Dysuria Objective Exam Last Set of Vital Signs Vital Signs Date Time Temp Pulse Resp B/P (MAP) Pulse Ox O2 Delivery O2 Flow Rate FiO2 10/18/16 05:15 98.2 100 18 133/81 84 Room Air Capillary Refill : Less Than 3 Seconds I&O Intake and Output 10/19/16 00:00 Intake Total 500 ml Balance 500 ml Intake Oral 500 ml # Voids 3 General: Alert, Oriented X3, Cooperative, No Acute Distress HEENT: Atraumatic, PERRLA, EOMI, Mucous Memb Moist/[place] Neck: Supple, No JVD Lungs: Clear to Auscultation Heart: Regular Rate Abdomen: Normal Bowel Sounds, Soft, No Tenderness Extremities: Other (ice on rt knee with dry dressing in place) Neuro: Other (weakness rt leg due to recent frx) Psych/Mental Status: Mental Status NL Results Lab Laboratory Tests 10/15/16 11:23: Glucometer 183H 10/15/16 16:07: Glucometer 259H 10/15/16 21:23: Glucometer 262H 10/16/16 06:04: Glucometer 80 10/16/16 11:02: Glucometer 188H 10/16/16 16:14: Glucometer 171H 10/16/16 21:11: Glucometer 261H 10/17/16 05:08: Glucometer 70 10/17/16 11:02: Glucometer 138H 10/17/16 16:03: Glucometer 215H 10/17/16 17:50: Urine Color YELLOW, Urine Clarity VERY CLOUDYH, Urine pH 6.5, Urine Specific [place] 1.010L, Urine Protein NEGATIVE, Urine Glucose (UA) NEGATIVE, Urine Ketones NEGATIVE, Urine Nitrite NEGATIVE, Urine Bilirubin NEGATIVE, Urine Urobilinogen NORMAL, Urine Leukocyte Esterase 3+H, Urine RBC (Auto) 3+H, Urine RBC 5-10H, Urine WBC TNTCH, Urine Squamous Epithelial Cells 0-2, Urine Crystals NONE, Urine Bacteria TRACE, Urine Casts NONE, Urine Mucus NEGATIVE, Urine Culture Indicated YES 10/17/16 20:57: Glucometer 199H 10/18/16 04:32: Glucometer 102 Microbiology 10/17/16 Urine Culture - Preliminary, Resulted Probable Klebsiella/Enterobact Assessment/Plan Assessment RT Tibial plaateua frx s/p orip TTWB RLE postop anemia DM-meds adjusted with-improved control HTN controlled UTI Plan Continue PT/OT ST has signed off Appreciate DR Schumacher note F/U with DR Soto et al re further insulin adjustment as needed Next Team Conference later today- 10/18/16-See report for full functional update and POC and ELOS Discharge remains set tentatively for Sunday10/20/16 TReat UTI- See orders LEVON ORTEGA MD Oct 18, 2016 10:22
--- NOTE | 2016-10-18 10:38 | Occupational Ther Daily Note ---
OT Current Status-Daily Note Subjective Pt seen in room, up in bed, agreeable to OT. No pain mentioned. Said she slept better last night. Appearance Alert, cooperative Mental Status/Objective Functional [place] Measure 0=Not Assessed/NA 4=Minimal Assistance 1=Total Assistance 5=Supervision or Setup 2=Maximal Assistance 6=Modified [place] 3=Moderate Assistance 7=Complete [place] ADL-Treatment Pt walked in room with SBA, FWW, from closet to bed to bathroom, with no LOB when going backwards. Pt also made smaller turns for safety Functional [place] Measure 0=Not Assessed/NA 4=Minimal Assistance 1=Total Assistance 5=Supervision or Setup 2=Maximal Assistance 6=Modified [place] 3=Moderate Assistance 7=Complete IndependenceIRFPAI Quality Coding Scale 6 Independent with activity with or without an assistive device 5 Patient requires set up or clean up by helper. Patient completes activity by themselves 4 Supervision or touching assist (CGA). [place] provide cues , steadying assist 3 The helper provides less than half the effort to complete the activity 2 The helper provides more than half the effort to complete the activity 1 Dependent. The helper does all the effort to complete an activity 7 Patient refused to complete or attempt activity 9 The patient did not perform the activity before the current illness or injury 88 Not attempted due to Medical conditions or safety concerns Grooming (FIM): 6 (Brushed teeth and hair at sink, FWW for balance. No LOB when backing away from sink) Bathing (FIM): 6 (Washed and dried all parts except back. Safely stood to wash bottom. SHower bench, grab bars, hand held shower. Retrieved towel from bar and turned water on/off) Upper Body (FIM): 6 (retrieved clean clothes from closet, FWW for balance. Donned shirt and bra/prosthesis without help) Lower Body Dressing (FIM): 6 (Donned pants mod I, FWW for balance. Unable to get R shoe on due to edema but able to get slipper sock on. Sock aid, dressign stick, fleet maintenance manager to pick dirty clothes up to put them away) Toileting (FIM): 6 (On/off tall toilet, managing clothing and hygiene, grab bar , FWW. ) Toilet/Commode Transfer (FIM): 6 (On/of tall toilet, grab bar, FWW) Shower Transfer(FIM): 5 (In/out of shower and off/on shower bench. Grab bar, FWW) Other Treatment Pt walked with SBA, FWW to gym. Did 13 minutes bilat UE exercise at 20W resistance (increased resistance so decreased time), with occasional cues to pedal faster but without taking any recovery periods. (increased resistance). To strengthen arms to help with weight bearing when standing and walking. Pt walked back to her room with SBA for safety, FWW, left up in recliner, with all needs met. Education OT Patient Education: Progress toward Goal/Update tx plan, Purpose of tx/ functional activities Teaching Recipient: Patient Teaching Methods: Discussion Response to Teaching: Verbalize Understanding OT Short Term Goals Short Term Goals Time Frame: Oct 13, 2016 Lower Body Dressing(FIM): 4 Toileting(FIM): 4 Toilet/Commode Transfer(FIM): 5 Additional Short Term Goals: 1-Demonstrate ADL Tasks, 2-Verbalize Understanding , 3-ImproveStrength/Luis 1=Demonstrate adherence to instructed precautions during ADL tasks. 2=Patient will verbalize/demonstrate understanding of assistive devices/ modifications for ADL. 3=Patient will improve strength/tolerance for activity to enable patient to perform ADL's. OT Yard Clerk Goals Senior Living Goals Time Frame: Oct 24, 2016 Eating (FIM): 6 Eating (QC): 6 Groomin Oral Hygiene (QC): 6 Bathing(FIM): 6 Shower/Bathe Self (QC): 6 Upper Body Dressing(FIM): 6 Upper Body Dressing (QC): 6 Lower Body Dressing(FIM): 6 Lower Body Dressing (QC): 6 On/Off Footwear (QC): 6 Toileting(FIM): 6 Toileting Hygiene (QC): 6 Toilet/Commode Transfer(FIM): 6 Toilet/Commode Transfer (QC): 6 Tub Transfer(FIM): 6 Shower Transfer(FIM): 6 Additional Goals: 1-Demonstrate ADL Tasks, 2-Verbalize Understanding, 3- ImproveStrength/Luis 1=Demonstrate adherence to instructed precautions during ADL tasks. 2=Patient will verbalize/demonstrate understanding of assistive devices/ modifications for ADL. 3=Patient will improve strength/tolerance for activity to enable patient to perform ADL's. OT Education/Plan Problem List/Assessment Pt would benefit from skilled OT to increase her independence in basic self care to allow her to safely return to her home and to decrease caregiver burden Discharge Recommendations Plan/Recommendations: Continue POC Treatment Plan/Plan of Care Patient would benefit from OT for education, treatment and training to promote independence in ADL's, mobility, safety and/or upper extremity function for ADL' s. Plan of Care: ADL Retraining, Functional Mobility, Group Exercise/Act as Ind ( education, exercise, activ maya, funct mobility, problem solving, socialization) , UE Funct Exercise/Act, UE Neuromus Re-Ed/Coord Treatment Duration: Oct 24, 2016 Frequency: At least 5 of 7 days/Wk (IRF) Estimated Hrs Per Day: 1.5 hours per day Agreement: Yes Rehab Potential: Good Time/GCodes Start Time: 08:30 Stop Time: 09:30 Total Time Billed (hr/min): 60 Billed Treatment Time visit, 35 minutes ADL, 25 minutes exercise KASSIE DUMONT OT Oct 18, 2016 10:38
[2016-10-18] MEDS: ENOXAPARIN 40 MG/0.4 ML (LOVENOX) SYR SC SCH (10:53)
[2016-10-18] MEDS: TIMOLOL MALEATE 0.5% 5 ML (TIMOPTIC) BTL OU SCH (10:53)
--- NOTE | 2016-10-18 11:05 | Physical Therapy Daily Note ---
PT Daily Note-Current Subjective Pt sitting in recliner upon arrival. Pt is requesting pain med but arrives to PT. Pain Numeric Pain Scale: 5-Moderate Pain Location: Right, Incisional Location Body Site: Knee Pain Description: Ache Comment: Pain starts at 3/10 to begin tx then inc. to 5/10 with Ex/GT. Mental Status Patient Orientation: Person, Place, Time, Situation Transfers Functional [place] Measure 0=Not Assessed/NA 4=Minimal Assistance 1=Total Assistance 5=Supervision or Setup 2=Maximal Assistance 6=Modified [place] 3=Moderate Assistance 7=Complete IndependenceIRFPAI Quality Coding Scale 6 Independent with activity with or without an assistive device 5 Patient requires set up or clean up by helper. Patient completes activity by themselves 4 Supervision or touching assist (CGA). [place] provide cues , steadying assist 3 The helper provides less than half the effort to complete the activity 2 The helper provides more than half the effort to complete the activity 1 Dependent. The helper does all the effort to complete an activity 7 Patient refused to complete or attempt activity 9 The patient did not perform the activity before the current illness or injury 88 Not attempted due to Medical conditions or safety concerns Scootin Sit to/from Stand: 5 Sit to Stand (QC): 5 Weight Bearing Weight Bearing Restriction: Full Weight Bearing Location Restriction: LE Bilateral Gait Training Does the Patient Walk?: Yes Distance (FIM): 3=150 ft Distance: 300' Walk 10 feet (QC): 5 Walk 50 ft with 2 Turns(QC): 5 Walk 150 ft (QC): 5 Gait Level of Assist: 5 Gait Persons Needed: 1 Gait Assistive Device: FWW Pt walks with a slow but steady gait, no LOB. Pt receives VC for keeping TTWB status. Wheelchair Training Does the Pt Use a Wheelchair?: No Exercises NuStep Minutes: 12 NuStep Workload: 6 Treatments Pt transferred from sitting in recliner to standing using FWW at [facility]. Pt used restroom before leaving room for rest of tx. Pt ambulated using FWW at [facility] in [facility] with a couple of rest breaks. Pt completed Seated Ex before returnging to room to rest in recliner at end of tx with all needs met. Assessment Current Status: Good Progress Pt continues to improve with independence and safety of transfers and mobility. PT Short Term Goals Short Term Goals Time Frame: Oct 13, 2016 Gait (FIM): 2 (met) Distance (FIM): 6=144-22 ft Gait Level of Assist: 4 (met) Gait Assistive Device: FWW PT Laminating Machine Offbearer Goals Longterm Goals PT Longterm Goals Time Frame: Oct 24, 2016 Transfers (B,C,W/C) (FIM): 6 Sit to Lying (QC): 6 Lying-Sitting on Side/Bed(QC): 6 Sit to Stand (QC): 6 Rollin Roll Left to Right (QC): 6 Chair/Gve-ab-Cmzfw Xfer(QC): 6 Car Transfer (QC): 5 Does the Patient Walk: Yes Gait (FIM): 5 Gait distance (FIM): 5=144-03 ft Distance: 50 ft household distance Walk 10 feet (QC): 5 Walk 10ft-Uneven Surface(QC): 5 Walk 50ft with 2 Turns (QC): 5 Walk 150 ft (QC): 88 Gait Assistive Device: FWW Does the Pt use WC or Scooter?: No Stairs (FIM): 2 # of Steps: 1 Picking up an Object (QC): 88 PT Plan Problem List Problem List: Activity Tolerance, Functional Strength, Gait Treatment/Plan Treatment Plan: Continue Plan of Care Treatment Plan: Bed Mobility, Education, Functional Activity Luis, Functional Strength, Group Therapy, Gait, Safety, Therapeutic Exercise, Transfers Treatment Duration: Oct 24, 2016 Frequency: At least 5 of 7 days/Wk (IRF) Estimated Hrs Per Day: 1.5 hours per day Patient and/or Family Agrees t: Yes Safety Risks/Education Patient Education: Gait Training, Correct Positioning, Safety Issues Teaching Recipient: Patient Teaching Methods: Discussion Response to Teaching: Verbalize Understanding Time/GCodes Time In: 930 Time Out: 1030 Total Billed Treatment Time: 60 Total Billed Treatment visit, GT x2 (30m), FA (15m) & EX (15m) VASHTI MANZO PTA Oct 18, 2016 11:05
--- NOTE | 2016-10-18 14:41 | Occupational Ther Daily Note ---
OT Current Status-Daily Note Subjective Pt seen in room, up in recliner, agreeable to OT. Mental Status/Objective Functional [place] Measure 0=Not Assessed/NA 4=Minimal Assistance 1=Total Assistance 5=Supervision or Setup 2=Maximal Assistance 6=Modified [place] 3=Moderate Assistance 7=Complete [place] ADL-Treatment Pt got up from recliner without assistance and walked with SBA for safety, FWW, to tub room. OT demonstrated tub transfer with transfer tub bench and pt practiced, with clothing on, successfully completing two transfers. Pt educ on purpose of tr tub bench - she is unable to step into and out of tub due to her weight-bearing status. Pt walked to commons area and did table top activity with 2# weight on each arm. Pt followed directions and had no difficulty problem solving [employer] game. Pt walked back to room and was left up in recliner, all needs met. Functional [place] Measure 0=Not Assessed/NA 4=Minimal Assistance 1=Total Assistance 5=Supervision or Setup 2=Maximal Assistance 6=Modified [place] 3=Moderate Assistance 7=Complete IndependenceIRFPAI Quality Coding Scale 6 Independent with activity with or without an assistive device 5 Patient requires set up or clean up by helper. Patient completes activity by themselves 4 Supervision or touching assist (CGA). [place] provide cues , steadying assist 3 The helper provides less than half the effort to complete the activity 2 The helper provides more than half the effort to complete the activity 1 Dependent. The helper does all the effort to complete an activity 7 Patient refused to complete or attempt activity 9 The patient did not perform the activity before the current illness or injury 88 Not attempted due to Medical conditions or safety concerns Education OT Patient Education: Progress toward Goal/Update tx plan, Purpose of tx/ functional activities Teaching Recipient: Patient Teaching Methods: Discussion Response to Teaching: Verbalize Understanding OT Short Term Goals Short Term Goals Time Frame: Oct 13, 2016 Lower Body Dressing(FIM): 4 Toileting(FIM): 4 Toilet/Commode Transfer(FIM): 5 Additional Short Term Goals: 1-Demonstrate ADL Tasks, 2-Verbalize Understanding , 3-ImproveStrength/Luis 1=Demonstrate adherence to instructed precautions during ADL tasks. 2=Patient will verbalize/demonstrate understanding of assistive devices/ modifications for ADL. 3=Patient will improve strength/tolerance for activity to enable patient to perform ADL's. OT Longterm Goals Longterm Goals Time Frame: Oct 24, 2016 Eating (FIM): 6 Eating (QC): 6 Groomin Oral Hygiene (QC): 6 Bathing(FIM): 6 Shower/Bathe Self (QC): 6 Upper Body Dressing(FIM): 6 Upper Body Dressing (QC): 6 Lower Body Dressing(FIM): 6 Lower Body Dressing (QC): 6 On/Off Footwear (QC): 6 Toileting(FIM): 6 Toileting Hygiene (QC): 6 Toilet/Commode Transfer(FIM): 6 Toilet/Commode Transfer (QC): 6 Tub Transfer(FIM): 6 Shower Transfer(FIM): 6 Additional Goals: 1-Demonstrate ADL Tasks, 2-Verbalize Understanding, 3- ImproveStrength/Luis 1=Demonstrate adherence to instructed precautions during ADL tasks. 2=Patient will verbalize/demonstrate understanding of assistive devices/ modifications for ADL. 3=Patient will improve strength/tolerance for activity to enable patient to perform ADL's. OT Education/Plan Problem List/Assessment Pt would benefit from skilled OT to increase her independence in basic self care to allow her to safely return to her home and to decrease caregiver burden Discharge Recommendations Plan/Recommendations: Continue POC Treatment Plan/Plan of Care Patient would benefit from OT for education, treatment and training to promote independence in ADL's, mobility, safety and/or upper extremity function for ADL' s. Plan of Care: ADL Retraining, Functional Mobility, Group Exercise/Act as Ind ( education, exercise, activ maya, funct mobility, problem solving, socialization) , UE Funct Exercise/Act, UE Neuromus Re-Ed/Coord Treatment Duration: Oct 24, 2016 Frequency: At least 5 of 7 days/Wk (IRF) Estimated Hrs Per Day: 1.5 hours per day Agreement: Yes Rehab Potential: Good Time/GCodes Start Time: 13:30 Stop Time: 14:00 Total Time Billed (hr/min): 30 Billed Treatment Time visit, 15 minutes ADL, 15 minutes exercise KASSIE DUMONT OT Oct 18, 2016 14:41
--- NOTE | 2016-10-18 15:21 | Physical Therapy Daily Note ---
PT Daily Note-Current Subjective Pt is sitting in recliner upon arrival. Pt agrees to PT. Pain Numeric Pain Scale: 3 Location: Right, Incisional Location Body Site: Knee Pain Description: Ache Mental Status Patient Orientation: Person, Place, Time, Situation Transfers Functional [place] Measure 0=Not Assessed/NA 4=Minimal Assistance 1=Total Assistance 5=Supervision or Setup 2=Maximal Assistance 6=Modified [place] 3=Moderate Assistance 7=Complete IndependenceIRFPAI Quality Coding Scale 6 Independent with activity with or without an assistive device 5 Patient requires set up or clean up by helper. Patient completes activity by themselves 4 Supervision or touching assist (CGA). [place] provide cues , steadying assist 3 The helper provides less than half the effort to complete the activity 2 The helper provides more than half the effort to complete the activity 1 Dependent. The helper does all the effort to complete an activity 7 Patient refused to complete or attempt activity 9 The patient did not perform the activity before the current illness or injury 88 Not attempted due to Medical conditions or safety concerns Scootin Sit to/from Stand: 5 Sit to Stand (QC): 5 Weight Bearing Weight Bearing Restriction: Full Weight Bearing Location Restriction: LE Bilateral Gait Training Does the Patient Walk?: Yes Distance (FIM): 3=150 ft Distance: 250' Walk 10 feet (QC): 5 Walk 50 ft with 2 Turns(QC): 5 Walk 150 ft (QC): 5 Gait Level of Assist: 5 Gait Persons Needed: 1 Gait Assistive Device: FWW Pt walks with slow but steady gait, no LOB. Pt needs occasional VC to keep TTWB status. Wheelchair Training Does the Pt Use a Wheelchair?: No Exercises Seated Therapy Exercises: Sit to stand Treatments Pt transfers from recliner to standing using FWW at A then practices sitting on raised bed. Pt uses restroom before leaving room. Pt ambulates in [facility] using FWW at SBA. Pt returns to recliner to rest at end of tx with all needs met. Assessment Current Status: Good Progress Pt has improved with bed mobility and transfers as well as ambulation safety. PT Short Term Goals Short Term Goals Time Frame: Oct 13, 2016 Gait (FIM): 2 (met) Distance (FIM): 4=012-83 ft Gait Level of Assist: 4 (met) Gait Assistive Device: FWW PT Chip Loft Worker Goals Chip Loft Worker Goals PT Chip Loft Worker Goals Time Frame: Oct 24, 2016 Transfers (B,C,W/C) (FIM): 6 Sit to Lying (QC): 6 Lying-Sitting on Side/Bed(QC): 6 Sit to Stand (QC): 6 Rollin Roll Left to Right (QC): 6 Chair/Fdp-pn-Jlwid Xfer(QC): 6 Car Transfer (QC): 5 Does the Patient Walk: Yes Gait (FIM): 5 Gait distance (FIM): 5=160-44 ft Distance: 50 ft household distance Walk 10 feet (QC): 5 Walk 10ft-Uneven Surface(QC): 5 Walk 50ft with 2 Turns (QC): 5 Walk 150 ft (QC): 88 Gait Assistive Device: FWW Does the Pt use WC or Scooter?: No Stairs (FIM): 2 # of Steps: 1 Picking up an Object (QC): 88 PT Plan Problem List Problem List: Activity Tolerance, Functional Strength, Gait Treatment/Plan Treatment Plan: Continue Plan of Care Treatment Plan: Bed Mobility, Education, Functional Activity Luis, Functional Strength, Group Therapy, Gait, Safety, Therapeutic Exercise, Transfers Treatment Duration: Oct 24, 2016 Frequency: At least 5 of 7 days/Wk (IRF) Estimated Hrs Per Day: 1.5 hours per day Patient and/or Family Agrees t: Yes Safety Risks/Education Patient Education: Gait Training, Reviewed Precautions, Correct Positioning, Safety Issues Teaching Recipient: Patient Teaching Methods: Discussion Response to Teaching: Verbalize Understanding Time/GCodes Time In: 1300 Time Out: 1330 Total Billed Treatment Time: 30 Total Billed Treatment visit, GT (15m) & FA (15m) VASHTI MANZO PTA Oct 18, 2016 15:21
[2016-10-18 18:30] VITALS: BP 148/84
[2016-10-18] MEDS: LUMIGAN 0.01% OPTH SOLUTION OP SCH (20:57)
[2016-10-18] MEDS: SIMvastatin 20 MG (ZOCOR) TAB PO SCH (20:58)
[2016-10-18] MEDS: SERTRALINE 50 MG (ZOLOFT) TABLET PO SCH (20:58)
[2016-10-18] MEDS: OLANZapine 5 MG (ZyPREXA) TAB PO SCH (20:58)
[2016-10-18] MEDS: lisINopril 20 MG (ZESTRIL) TAB PO SCH (20:58)
[2016-10-18] MEDS: inSUlin DETERMIR 1 UNIT/0.01 ML (LEVEMIR) CHARGE PER UNIT SQ SCH (20:58)
[2016-10-18] MEDS: DIVALPROEX EXT RELEASE 500 MG (DEPAKOTE ER) TAB PO SCH (20:59)
[2016-10-19 05:52] VITALS: BP 114/78
[2016-10-19] MEDS: metFORMIN XR 500 MG (GLUCOPHAGE XR) TAB PO SCH ×2 (06:14→20:26)
[2016-10-19] MEDS: OMEGA 3 (FISH OIL) 1000 MG CAP PO SCH (06:14)
[2016-10-19] MEDS: CALCIUM CARB + VIT D 600 MG (CALCARB + D) TAB PO SCH ×2 (06:14→16:40)
[2016-10-19] MEDS: inSUlin ASPART (NovoLOG) 1 UNIT/0.01 ML (CHARGE PER UNIT) SC SCH ×4 (06:15→20:27)
[2016-10-19] MEDS: LEVOTHYROXINE 125 MCG (LEVOTHROID) TABLET PO SCH (06:15)
--- NOTE | 2016-10-19 08:22 | PM & R (SOAP) Progress Note ---
Subjective Time Seen by Provider: 08:00 Subjective/Events-last exam Patient was seen in her room this AM Case discussed with RN Patient with dysuria and incontinence UC&S reveals UTI -Kleb.Pneu,-Bactrim ordered Accucheks bottoming out at times [facility] managing,Discharge rermains set for tomorrow.Patient SBA for transfers Review of Systems Genitourinary: Dysuria, Incontinence Objective Exam Last Set of Vital Signs Vital Signs Date Time Temp Pulse Resp B/P (MAP) Pulse Ox O2 Delivery O2 Flow Rate FiO2 10/19/16 05:52 97.6 98 18 114/78 97 Room Air Capillary Refill : Less Than 3 Seconds I&O Intake and Output 10/20/16 00:00 Intake Total 600 ml Balance 600 ml Intake Oral 600 ml # Voids 3 General: Alert, Oriented X3, Cooperative, No Acute Distress HEENT: Atraumatic, PERRLA, EOMI, Mucous Memb Moist/[place] Neck: Supple, No JVD Lungs: Clear to Auscultation Heart: Regular Rate Abdomen: Normal Bowel Sounds, Soft, No Tenderness Extremities: Other (ice on rt knee with dry dressing in place) Neuro: Other (weakness rt leg due to recent frx) Psych/Mental Status: Mental Status NL Results Lab Laboratory Tests 10/16/16 11:02: Glucometer 188H 10/16/16 16:14: Glucometer 171H 10/16/16 21:11: Glucometer 261H 10/17/16 05:08: Glucometer 70 10/17/16 11:02: Glucometer 138H 10/17/16 16:03: Glucometer 215H 10/17/16 17:50: Urine Color YELLOW, Urine Clarity VERY CLOUDYH, Urine pH 6.5, Urine Specific [place] 1.010L, Urine Protein NEGATIVE, Urine Glucose (UA) NEGATIVE, Urine Ketones NEGATIVE, Urine Nitrite NEGATIVE, Urine Bilirubin NEGATIVE, Urine Urobilinogen NORMAL, Urine Leukocyte Esterase 3+H, Urine RBC (Auto) 3+H, Urine RBC 5-10H, Urine WBC TNTCH, Urine Squamous Epithelial Cells 0-2, Urine Crystals NONE, Urine Bacteria TRACE, Urine Casts NONE, Urine Mucus NEGATIVE, Urine Culture Indicated YES 10/17/16 20:57: Glucometer 199H 10/18/16 04:32: Glucometer 102 10/18/16 11:05: Glucometer 194H 10/18/16 16:32: Glucometer 109 10/18/16 20:52: Glucometer 352H 10/19/16 05:12: Glucometer 63L Microbiology 10/17/16 Urine Culture - Preliminary, Resulted Klebsiella Pneumoniae Assessment/Plan Assessment RT Tibial plaateua frx s/p orip TTWB RLE postop anemia DM-meds adjusted with-improved control HTN controlled UTI Plan Continue PT/OT ST has signed off Appreciate DR Schumacher note F/U with DR Soto et al re further insulin adjustment as needed Team Conference held yesterday- 10/18/16-See report for full functional update and POC and ELOS Discharge remains set tentatively for tomorrow Sunday10/20/16 TReat UTI- See orders re LEVON Gallego MD Oct 19, 2016 08:22
[2016-10-19] MEDS ORDERED: HYDR-3812 PO (08:30)
[2016-10-19] MEDS ORDERED: POLY17PO23 PO (08:30)
[2016-10-19] MEDS ORDERED: SULF1TAB35 PO (08:30)
[2016-10-19] MEDS: TIMOLOL MALEATE 0.5% 5 ML (TIMOPTIC) BTL OU SCH (08:32)
[2016-10-19] MEDS: DOCUSATE SODIUM 100 MG (COLACE) CAP PO SCH ×2 (08:38→20:26)
[2016-10-19] MEDS: ENOXAPARIN 40 MG/0.4 ML (LOVENOX) SYR SC SCH (08:38)
[2016-10-19] MEDS: ASPIRIN E.C. 81 MG (ECOTRIN) TAB PO SCH (08:38)
[2016-10-19] MEDS: POLYETHYLENE GLYCOL 17 GM (MIRALAX) PACK PO SCH ×2 (08:38→20:23)
[2016-10-19] MEDS: amLODIPine 10 MG (NORVASC) TAB PO SCH (08:38)
[2016-10-19] MEDS: HYDROCHLOROTHIAZIDE 12.5 MG (HCTZ) CAP PO SCH (08:38)
[2016-10-19] MEDS ORDERED: TRIM/SULFAMETH 160/800 (SEPTRA DS) TAB PO ONE ×2 (09:25→09:45)
--- NOTE | 2016-10-19 09:49 | Occupational Ther Daily Note ---
OT Current Status-Daily Note Subjective Pt seenin room, up in bed, agreeable to OT. Reported she had had an "accident" in bed last night because she now has a UTI and couldn't get to the commode in time. No pain mentioned. Looking forward to discharge home tomorrow. Appearance Alert, cooperative Mental Status/Objective Functional [place] Measure 0=Not Assessed/NA 4=Minimal Assistance 1=Total Assistance 5=Supervision or Setup 2=Maximal Assistance 6=Modified [place] 3=Moderate Assistance 7=Complete [place] ADL-Treatment Pt walked in room very carefully and deliberately, paying attention especially to walking backwards and turning while leaving walker on floor (not picking it up). One cue to not walk away from walker. Functional [place] Measure 0=Not Assessed/NA 4=Minimal Assistance 1=Total Assistance 5=Supervision or Setup 2=Maximal Assistance 6=Modified [place] 3=Moderate Assistance 7=Complete IndependenceIRFPAI Quality Coding Scale 6 Independent with activity with or without an assistive device 5 Patient requires set up or clean up by helper. Patient completes activity by themselves 4 Supervision or touching assist (CGA). [place] provide cues , steadying assist 3 The helper provides less than half the effort to complete the activity 2 The helper provides more than half the effort to complete the activity 1 Dependent. The helper does all the effort to complete an activity 7 Patient refused to complete or attempt activity 9 The patient did not perform the activity before the current illness or injury 88 Not attempted due to Medical conditions or safety concerns Eating (FIM): 6 (Able to feed herself and open packages/cut up food. Takes a little longer than usual) Eating (QC): 6 Grooming (FIM): 6 (Stood at sink to brush teeth and hair. Washed face and hands in shower. Fww for balance. No makeup) Oral Hygiene (QC): 6 Bathing (FIM): 6 (Pt washed and dried all parts except back. Safely stood to wash maggie and bottom. Turned water on and off and retrieved towels. Shower bench , grab bars, hand held shower. ) Shower/Bathe Self (QC): 6 Upper Body (FIM): 6 (Pt retrieved clean clothes from closet and put dirty ones away, FWW at closet for balance. Donned bra (including breast prosthesis) and shirt without help ) Upper Body Dressing (QC): 6 Lower Body Dressing (FIM): 6 (Retrieved clean clothes from closet and put dirty ones away. Doffed and dooned clothing, including slipper socks. Used dressing stick to take socks off but did not need sockaid to don slipper socks today. Used hand bootmaker to burr picker dirty clothes from floor) Lower Body Dressing (QC): 6 On/Off Footwear (QC): 6 Toileting (FIM): 6 (Managied clothing and hygiene without assistance. Tall toilet, FWW, grab bar) Toileting Hygiene (QC): 6 Toilet/Commode Transfer (FIM): 6 (On and off BSC without assistance. FWW, grab bar) Toilet Transfer (QC): 6 Shower Transfer(FIM): 5 (SBA in and out of shower but able to get on and off shower bench without help. Grab bar) Other Treatment Pt walked to gym, with FWW and got in and out of chair with arms without assistance. Pt did 15 minutes bilat UE exercise with arm bike set at 20W resistance, with cues to pedal faster so that numbers register changes in time. To strengthen arms to safely maintain weight bearing status with FWW. At end of tx, care transferred to PT. Education OT Patient Education: Exercise program, Progress toward Goal/Update tx plan, Purpose of tx/functional activities, Safety issues Teaching Recipient: Patient Teaching Methods: Discussion Response to Teaching: Verbalize Understanding OT Short Term Goals Short Term Goals Time Frame: Oct 13, 2016 Lower Body Dressing(FIM): 4 Toileting(FIM): 4 Toilet/Commode Transfer(FIM): 5 Additional Short Term Goals: 1-Demonstrate ADL Tasks, 2-Verbalize Understanding , 3-ImproveStrength/Luis 1=Demonstrate adherence to instructed precautions during ADL tasks. 2=Patient will verbalize/demonstrate understanding of assistive devices/ modifications for ADL. 3=Patient will improve strength/tolerance for activity to enable patient to perform ADL's. OT Aquarium Specialist Goals Aquarium Specialist Goals Time Frame: Oct 24, 2016 Eating (FIM): 6 Eating (QC): 6 Groomin Oral Hygiene (QC): 6 Bathing(FIM): 6 Shower/Bathe Self (QC): 6 Upper Body Dressing(FIM): 6 Upper Body Dressing (QC): 6 Lower Body Dressing(FIM): 6 Lower Body Dressing (QC): 6 On/Off Footwear (QC): 6 Toileting(FIM): 6 Toileting Hygiene (QC): 6 Toilet/Commode Transfer(FIM): 6 Toilet/Commode Transfer (QC): 6 Tub Transfer(FIM): 6 Shower Transfer(FIM): 6 Additional Goals: 1-Demonstrate ADL Tasks, 2-Verbalize Understanding, 3- ImproveStrength/Luis 1=Demonstrate adherence to instructed precautions during ADL tasks. 2=Patient will verbalize/demonstrate understanding of assistive devices/ modifications for ADL. 3=Patient will improve strength/tolerance for activity to enable patient to perform ADL's. OT Education/Plan Problem List/Assessment Pt would benefit from skilled OT to increase her independence in basic self care to allow her to safely return to her home and to decrease caregiver burden Discharge Recommendations Plan/Recommendations: Continue POC Treatment Plan/Plan of Care Patient would benefit from OT for education, treatment and training to promote independence in ADL's, mobility, safety and/or upper extremity function for ADL' s. Plan of Care: ADL Retraining, Functional Mobility, Group Exercise/Act as Ind ( education, exercise, activ maya, funct mobility, problem solving, socialization) , UE Funct Exercise/Act, UE Neuromus Re-Ed/Coord Treatment Duration: Oct 24, 2016 Frequency: At least 5 of 7 days/Wk (IRF) Estimated Hrs Per Day: 1.5 hours per day Agreement: Yes Rehab Potential: Good Time/GCodes Start Time: 08:30 Stop Time: 09:30 Total Time Billed (hr/min): 60 Billed Treatment Time visit, 30 minutes ADL, 30 minutes exercise KASSIE DUMONT OT Oct 19, 2016 09:49
[2016-10-19] MEDS: HYDROcodone/APAP 5 MG/325 MG (LORTAB) TAB PO PRN ×2 (10:25→16:40)
--- NOTE | 2016-10-19 11:30 | Physical Therapy Daily Note ---
PT Daily Note-Current Subjective Pt sitting in chair in Therapy Gym after finishing OT upon arrival. Pt agrees to PT for tx. Pain Numeric Pain Scale: 5-Moderate Pain Location: Right, Incisional Location Body Site: Knee Pain Description: Ache Mental Status Patient Orientation: Person, Place, Time, Situation Transfers Functional [place] Measure 0=Not Assessed/NA 4=Minimal Assistance 1=Total Assistance 5=Supervision or Setup 2=Maximal Assistance 6=Modified [place] 3=Moderate Assistance 7=Complete IndependenceIRFPAI Quality Coding Scale 6 Independent with activity with or without an assistive device 5 Patient requires set up or clean up by helper. Patient completes activity by themselves 4 Supervision or touching assist (CGA). [place] provide cues , steadying assist 3 The helper provides less than half the effort to complete the activity 2 The helper provides more than half the effort to complete the activity 1 Dependent. The helper does all the effort to complete an activity 7 Patient refused to complete or attempt activity 9 The patient did not perform the activity before the current illness or injury 88 Not attempted due to Medical conditions or safety concerns Transfers (B, C, W/C) (FIM): 6 Scootin Rollin Roll Left to Right (QC): 6 Supine to/from Sit: 6 Sit to/from Stand: 6 Sit to Lying (QC): 6 Sit to Stand (QC): 6 Chair/Eir-wr-Snpvm Xfer(QC): 6 Bed to/from Chair: 6 Car Transfer (QC): 88 Pt doesn't have car present to complete transfer. Pt will be scored at discharge tomorrow. Weight Bearing Weight Bearing Restriction: Touch Toe Bearing Location Restriction: R LE Gait Training Does the Patient Walk?: Yes Distance (FIM): 3=150 ft Distance: 500' Walk 10 feet (QC): 6 Walk 50 ft with 2 Turns(QC): 6 Walk 150 ft (QC): 6 Walking 10ft/uneven surface-QC: 6 Gait Level of Assist: 6 Gait Persons Needed: 1 Gait Assistive Device: FWW Pt walks with more normalized gait. Wheelchair Training Does the Pt Use a Wheelchair?: No Stair Training Stairs (FIM): 88 Pt has no stairs to get into house and pt unable to maintain WB status for ambulating stairs safely. Balance Picking up an Object (QC): 5 Exercises Seated Therapy Exercises: Ankle pumps, Long arc quads, Hip flexion, Kicking activity Seated Reps: 15 Standing: Hip Abduction, Hamstring curls, Marching Standing Reps: 15 Treatments Pt completed transfers and bed mobility at [facility]. Pt ambulates in across varying surface of at least 10' as well as in the hallway using FWW at [facility]. Pt able to filler picker object off floor without difficulty. Pt completes Seated Ex as well as Standing Ex at //bars. Pt returns to room to use restroom and rest in recliner at end of tx with all needs met. Assessment Current Status: Good Progress Pt has made improvements with independence and safety of mobility and transfers. Pt is able to ambulate farther and more independently than before coming to ARU. PT Short Term Goals Short Term Goals Time Frame: Oct 13, 2016 Gait (FIM): 2 (met) Distance (FIM): 9=047-42 ft Gait Level of Assist: 4 (met) Gait Assistive Device: FWW PT Oracle Database Architect Goals Retirement Goals PT Oracle Database Architect Goals Time Frame: Oct 24, 2016 Transfers (B,C,W/C) (FIM): 6 Sit to Lying (QC): 6 Lying-Sitting on Side/Bed(QC): 6 Sit to Stand (QC): 6 Rollin Roll Left to Right (QC): 6 Chair/Yzg-zg-Yhyjp Xfer(QC): 6 Car Transfer (QC): 5 Does the Patient Walk: Yes Gait (FIM): 5 Gait distance (FIM): 1=492-89 ft Distance: 50 ft household distance Walk 10 feet (QC): 5 Walk 10ft-Uneven Surface(QC): 5 Walk 50ft with 2 Turns (QC): 5 Walk 150 ft (QC): 88 Gait Assistive Device: FWW Does the Pt use WC or Scooter?: No Stairs (FIM): 2 # of Steps: 1 Picking up an Object (QC): 88 PT Plan Problem List Problem List: Activity Tolerance, Functional Strength Treatment/Plan Treatment Plan: Continue Plan of Care Treatment Plan: Bed Mobility, Education, Functional Activity Luis, Functional Strength, Group Therapy, Gait, Safety, Therapeutic Exercise, Transfers Treatment Duration: Oct 24, 2016 Frequency: At least 5 of 7 days/Wk (IRF) Estimated Hrs Per Day: 1.5 hours per day Patient and/or Family Agrees t: Yes Safety Risks/Education Patient Education: Gait Training, Safety Issues Teaching Recipient: Patient Teaching Methods: Discussion Response to Teaching: Verbalize Understanding Time/GCodes Time In: 930 Time Out: 1030 Total Billed Treatment Time: 60 Total Billed Treatment visit, GT x2 (30m), FA (10m) & EX (20m) VASHTI MANZO WELDER FITTER APPRENTICE Oct 19, 2016 11:30
--- NOTE | 2016-10-19 14:08 | Physical Therapy Daily Note ---
PT Daily Note-Current Subjective Pt sitting in recliner finishing lunch upon arrival. Pt agrees to PT. Pain Numeric Pain Scale: 3 Location: Right, Incisional Location Body Site: Knee Pain Description: Ache Mental Status Patient Orientation: Person, Place, Time, Situation Transfers Functional [place] Measure 0=Not Assessed/NA 4=Minimal Assistance 1=Total Assistance 5=Supervision or Setup 2=Maximal Assistance 6=Modified [place] 3=Moderate Assistance 7=Complete IndependenceIRFPAI Quality Coding Scale 6 Independent with activity with or without an assistive device 5 Patient requires set up or clean up by helper. Patient completes activity by themselves 4 Supervision or touching assist (CGA). [place] provide cues , steadying assist 3 The helper provides less than half the effort to complete the activity 2 The helper provides more than half the effort to complete the activity 1 Dependent. The helper does all the effort to complete an activity 7 Patient refused to complete or attempt activity 9 The patient did not perform the activity before the current illness or injury 88 Not attempted due to Medical conditions or safety concerns Scootin Sit to/from Stand: 6 Sit to Stand (QC): 6 Weight Bearing Weight Bearing Restriction: Touch Toe Bearing Location Restriction: R LE Gait Training Does the Patient Walk?: Yes Distance (FIM): 3=150 ft Distance: 150' Walk 10 feet (QC): 6 Walk 50 ft with 2 Turns(QC): 6 Walk 150 ft (QC): 6 Gait Level of Assist: 6 Gait Persons Needed: 1 Gait Assistive Device: FWW Pt walks with more normalized gait although still needs VC for keeping TTWB status. Wheelchair Training Does the Pt Use a Wheelchair?: No Exercises Seated Therapy Exercises: Ankle pumps, Long arc quads, Hip flexion, Kicking activity Seated Reps: 15 Treatments Pt transfers from recliner to standing using FWW at [facility]. Pt ambulates to restroom to use before leaving for Therapy Gym. Pt picks up FWW to cross threshold out of restroom and is given VC to keep FWW on ground at all times. Pt ambualtes to Therapy Gym using FWW at [facility]. Pt completes Seated Ex in chair then rests at end of tx with all needs met. OT is seeing pt right after PT is complete. Assessment Current Status: Good Progress Pt has made improvements although will occasionally demonstrate safety concern during tx. Pt will correct with VC. PT Short Term Goals Short Term Goals Time Frame: Oct 13, 2016 Gait (FIM): 2 (met) Distance (FIM): 2=051-80 ft Gait Level of Assist: 4 (met) Gait Assistive Device: FWW PT Kiln Packer Goals Kiln Packer Goals PT Long-Term Goals Time Frame: Oct 24, 2016 Transfers (B,C,W/C) (FIM): 6 Sit to Lying (QC): 6 Lying-Sitting on Side/Bed(QC): 6 Sit to Stand (QC): 6 Rollin Roll Left to Right (QC): 6 Chair/Hhr-ru-Oqulx Xfer(QC): 6 Car Transfer (QC): 5 Does the Patient Walk: Yes Gait (FIM): 5 Gait distance (FIM): 3=433-45 ft Distance: 50 ft household distance Walk 10 feet (QC): 5 Walk 10ft-Uneven Surface(QC): 5 Walk 50ft with 2 Turns (QC): 5 Walk 150 ft (QC): 88 Gait Assistive Device: FWW Does the Pt use WC or Scooter?: No Stairs (FIM): 2 # of Steps: 1 Picking up an Object (QC): 88 PT Plan Problem List Problem List: Activity Tolerance, Safety Treatment/Plan Treatment Plan: Continue Plan of Care Treatment Plan: Bed Mobility, Education, Functional Activity Luis, Functional Strength, Group Therapy, Gait, Safety, Therapeutic Exercise, Transfers Treatment Duration: Oct 24, 2016 Frequency: At least 5 of 7 days/Wk (IRF) Estimated Hrs Per Day: 1.5 hours per day Patient and/or Family Agrees t: Yes Safety Risks/Education Patient Education: Gait Training, Safety Issues Teaching Recipient: Patient Teaching Methods: Discussion Response to Teaching: Verbalize Understanding Time/GCodes Time In: 1300 Time Out: 1330 Total Billed Treatment Time: 30 Total Billed Treatment visit, FA (15m) & EX (15m) VASHTI MANZO PTA Oct 19, 2016 14:08
--- NOTE | 2016-10-19 14:18 | Occupational Ther Daily Note ---
OT Current Status-Daily Note Subjective Pt seen in gym after PT, agreeable to OT. No pain mentioned. Appearance Alert, cooperative Mental Status/Objective Functional [place] Measure 0=Not Assessed/NA 4=Minimal Assistance 1=Total Assistance 5=Supervision or Setup 2=Maximal Assistance 6=Modified [place] 3=Moderate Assistance 7=Complete [place] ADL-Treatment Functional [place] Measure 0=Not Assessed/NA 4=Minimal Assistance 1=Total Assistance 5=Supervision or Setup 2=Maximal Assistance 6=Modified [place] 3=Moderate Assistance 7=Complete IndependenceIRFPAI Quality Coding Scale 6 Independent with activity with or without an assistive device 5 Patient requires set up or clean up by helper. Patient completes activity by themselves 4 Supervision or touching assist (CGA). [place] provide cues , steadying assist 3 The helper provides less than half the effort to complete the activity 2 The helper provides more than half the effort to complete the activity 1 Dependent. The helper does all the effort to complete an activity 7 Patient refused to complete or attempt activity 9 The patient did not perform the activity before the current illness or injury 88 Not attempted due to Medical conditions or safety concerns Other Treatment Pt educ on resources for purchasing or borrowing a transfer tub bench. Pt was given written instructions on 4 different bilat UE exercises with theraband. Pt was able to do 15 reps each exercise with yellow theraband (gentle resistance), following the instructions on the handout. She then did 10 reps of each exercise on her own, with almost no cues. Pt educ on how to grade these exercises as she gets stronger. Pt als did 15 reps bilat UE exercise with 2# weight, working on shoulders, elbows, forearms and wrists. Pt walked back to her room with FWW, with mild safety concerns for maintaining weight bearing status and not picking walker up or leaving it behind. Pt left p in recliner, all needs met. Education OT Patient Education: Exercise program, Progress toward Goal/Update tx plan, Purpose of tx/functional activities, Safety issues Teaching Recipient: Patient Teaching Methods: Demonstration, Discussion Response to Teaching: Verbalize Understanding, Return Demonstration OT Short Term Goals Short Term Goals Time Frame: Oct 13, 2016 Lower Body Dressing(FIM): 4 Toileting(FIM): 4 Toilet/Commode Transfer(FIM): 5 Additional Short Term Goals: 1-Demonstrate ADL Tasks, 2-Verbalize Understanding , 3-ImproveStrength/Luis 1=Demonstrate adherence to instructed precautions during ADL tasks. 2=Patient will verbalize/demonstrate understanding of assistive devices/ modifications for ADL. 3=Patient will improve strength/tolerance for activity to enable patient to perform ADL's. OT Medical Services Coordinator Goals Medical Services Coordinator Goals Time Frame: Oct 24, 2016 Eating (FIM): 6 Eating (QC): 6 Groomin Oral Hygiene (QC): 6 Bathing(FIM): 6 Shower/Bathe Self (QC): 6 Upper Body Dressing(FIM): 6 Upper Body Dressing (QC): 6 Lower Body Dressing(FIM): 6 Lower Body Dressing (QC): 6 On/Off Footwear (QC): 6 Toileting(FIM): 6 Toileting Hygiene (QC): 6 Toilet/Commode Transfer(FIM): 6 Toilet/Commode Transfer (QC): 6 Tub Transfer(FIM): 6 Shower Transfer(FIM): 6 Additional Goals: 1-Demonstrate ADL Tasks, 2-Verbalize Understanding, 3- ImproveStrength/Luis 1=Demonstrate adherence to instructed precautions during ADL tasks. 2=Patient will verbalize/demonstrate understanding of assistive devices/ modifications for ADL. 3=Patient will improve strength/tolerance for activity to enable patient to perform ADL's. OT Education/Plan Problem List/Assessment Pt would benefit from skilled OT to increase her independence in basic self care to allow her to safely return to her home and to decrease caregiver burden Discharge Recommendations Plan/Recommendations: Continue POC Treatment Plan/Plan of Care Patient would benefit from OT for education, treatment and training to promote independence in ADL's, mobility, safety and/or upper extremity function for ADL' s. Plan of Care: ADL Retraining, Functional Mobility, Group Exercise/Act as Ind ( education, exercise, activ maya, funct mobility, problem solving, socialization) , UE Funct Exercise/Act, UE Neuromus Re-Ed/Coord Treatment Duration: Oct 24, 2016 Frequency: At least 5 of 7 days/Wk (IRF) Estimated Hrs Per Day: 1.5 hours per day Agreement: Yes Rehab Potential: Good Time/GCodes Start Time: 13:30 Stop Time: 14:00 Total Time Billed (hr/min): 30 Billed Treatment Time visit, 30 minutes exercise KASSIE DUMONT OT Oct 19, 2016 14:18
[2016-10-19] MEDS: TRIM/SULFAMETH 160/800 (SEPTRA DS) TAB PO SCH (16:40)
[2016-10-19 18:14] VITALS: BP 127/79
[2016-10-19] MEDS: lisINopril 20 MG (ZESTRIL) TAB PO SCH (20:25)
[2016-10-19] MEDS: SIMvastatin 20 MG (ZOCOR) TAB PO SCH (20:25)
[2016-10-19] MEDS: OLANZapine 5 MG (ZyPREXA) TAB PO SCH (20:25)
[2016-10-19] MEDS: SERTRALINE 50 MG (ZOLOFT) TABLET PO SCH (20:25)
[2016-10-19] MEDS: DIVALPROEX EXT RELEASE 500 MG (DEPAKOTE ER) TAB PO SCH (20:25)
[2016-10-19] MEDS: inSUlin DETERMIR 1 UNIT/0.01 ML (LEVEMIR) CHARGE PER UNIT SQ SCH (20:26)
[2016-10-19] MEDS: LUMIGAN 0.01% OPTH SOLUTION OP SCH (20:28)
[2016-10-20 05:00] VITALS: BP 143/79
[2016-10-20] MEDS: inSUlin ASPART (NovoLOG) 1 UNIT/0.01 ML (CHARGE PER UNIT) SC SCH (05:40)
[2016-10-20] MEDS: metFORMIN XR 500 MG (GLUCOPHAGE XR) TAB PO SCH (05:41)
[2016-10-20] MEDS: LEVOTHYROXINE 125 MCG (LEVOTHROID) TABLET PO SCH (06:10)
[2016-10-20] MEDS: TRIM/SULFAMETH 160/800 (SEPTRA DS) TAB PO SCH (06:10)
[2016-10-20] MEDS: OMEGA 3 (FISH OIL) 1000 MG CAP PO SCH (06:10)
[2016-10-20] MEDS: CALCIUM CARB + VIT D 600 MG (CALCARB + D) TAB PO SCH (06:10)
[2016-10-20] MEDS: ENOXAPARIN 40 MG/0.4 ML (LOVENOX) SYR SC SCH (08:32)
[2016-10-20] MEDS: amLODIPine 10 MG (NORVASC) TAB PO SCH (08:32)
[2016-10-20] MEDS: IBUPROFEN TABLET 200 MG TAB PO PRN (08:33)
[2016-10-20] MEDS: DOCUSATE SODIUM 100 MG (COLACE) CAP PO SCH (08:33)
[2016-10-20] MEDS: POLYETHYLENE GLYCOL 17 GM (MIRALAX) PACK PO SCH (08:33)
[2016-10-20] MEDS: ASPIRIN E.C. 81 MG (ECOTRIN) TAB PO SCH (08:33)
[2016-10-20] MEDS: HYDROCHLOROTHIAZIDE 12.5 MG (HCTZ) CAP PO SCH (08:33)
[2016-10-20] MEDS: TIMOLOL MALEATE 0.5% 5 ML (TIMOPTIC) BTL OU SCH (08:36)
--- NOTE | 2016-10-20 08:47 | PM & R (SOAP) Progress Note ---
Subjective Time Seen by Provider: 08:15 Subjective/Events-last exam Patient was seen in her room this AM Dysuria improved with antibiotic on board for uti. Objective Exam Last Set of Vital Signs Vital Signs Date Time Temp Pulse Resp B/P (MAP) Pulse Ox O2 Delivery O2 Flow Rate FiO2 10/20/16 05:00 98.3 92 18 143/79 96 Room Air Capillary Refill : Less Than 3 Seconds I&O Intake and Output 10/21/16 00:00 Intake Total 400 ml Balance 400 ml Intake Oral 400 ml # Voids 2 General: Alert, Oriented X3, Cooperative, No Acute Distress HEENT: Atraumatic, PERRLA, EOMI, Mucous Memb Moist/Clements Neck: Supple, No JVD Lungs: Clear to Auscultation Heart: Regular Rate Abdomen: Normal Bowel Sounds, Soft, No Tenderness Extremities: Other (ice on rt knee with dry dressing in place) Neuro: Other (weakness rt leg due to recent frx) Psych/Mental Status: Mental Status NL Results Lab Laboratory Tests 10/17/16 11:02: Glucometer 138H 10/17/16 16:03: Glucometer 215H 10/17/16 17:50: Urine Color YELLOW, Urine Clarity VERY CLOUDYH, Urine pH 6.5, Urine Specific Drummonds 1.010L, Urine Protein NEGATIVE, Urine Glucose (UA) NEGATIVE, Urine Ketones NEGATIVE, Urine Nitrite NEGATIVE, Urine Bilirubin NEGATIVE, Urine Urobilinogen NORMAL, Urine Leukocyte Esterase 3+H, Urine RBC (Auto) 3+H, Urine RBC 5-10H, Urine WBC TNTCH, Urine Squamous Epithelial Cells 0-2, Urine Crystals NONE, Urine Bacteria TRACE, Urine Casts NONE, Urine Mucus NEGATIVE, Urine Culture Indicated YES 10/17/16 20:57: Glucometer 199H 10/18/16 04:32: Glucometer 102 10/18/16 11:05: Glucometer 194H 10/18/16 16:32: Glucometer 109 10/18/16 20:52: Glucometer 352H 10/19/16 05:12: Glucometer 63L 10/19/16 11:22: Glucometer 241H 10/19/16 16:05: Glucometer 183H 10/19/16 20:16: Glucometer 292H 10/20/16 05:40: Glucometer 88 Microbiology 10/17/16 Urine Culture - Final, Complete Klebsiella Pneumoniae Assessment/Plan Assessment RT Tibial plaateua frx s/p orip TTWB RLE postop anemia DM-meds adjusted with-improved control HTN controlled UTI Plan Discharge today to home with family and HHC [facility] Current labs and meds reviewed See orders. LEVON ORTEGA MD Oct 20, 2016 08:47
--- NOTE | 2016-10-20 09:34 | Therapy Team Discharge Summary ---
Therapy Discharge Summary Discharge Recommendations Date of Discharge Therapy D/C Recommendations: Home w/ Family Support, Occupational Therapy Home Care, Meals on Wheels Physical Therapy Patient came to rehab following a tibial plateau fracture. Upon admission patient performed bed mobility with mod assist and transfers with min assist, ambulated 10' with a rolling walker with min assist, no stairs at that time. Patient has been performing bed mobility and transfer training, balance and endurance training, functional strengthening, stair training, gait training, and education. Patient has made good progress and has met all of her rivet tosser goals except for stairs. Now, patient performs bed mobility and transfers with mod I, ambulates 500' with a rolling walker with SBA (including 50' with at least 2 turns of 90 degrees and 10' over an uneven surface), and can milk pickup truck driver an object from the floor with SBA, no stairs at this time. Patient is discharging from this facility today and will be discharged from PT at this time. PT Usp Goals Dock Boss Goals PT Dock Boss Goals Time Frame: Oct 24, 2016 Transfers (B,C,W/C) (FIM): 6 Roll Left to Right (QC): 6 Sit to Lying (QC): 6 Lying-Sitting on Side/Bed(QC): 6 Sit to Stand (QC): 6 Chair/Ixc-pq-Ndrsk Xfer(QC): 6 Car Transfer (QC): 5 Does the Patient Walk: Yes Gait (FIM): 5 Gait distance (FIM): 2=133-18 ft Distance: 50 ft household distance Walk 10 feet (QC): 5 Walk 10ft-Uneven Surface(QC): 5 Walk 50ft with 2 Turns (QC): 5 Walk 150 ft (QC): 88 Gait Assistive Device: FWW Does the Pt use WC or Scooter?: No Stairs (FIM): 2 # of Steps: 1 Picking up an Object (QC): 88 OT Usp Goals Usp Goals Time Frame: Oct 24, 2016 Eating (FIM): 6 Eating (QC): 6 Oral Hygiene (QC): 6 Grooming(FIM): 6 Bathing(FIM): 6 Shower/Bathe Self (QC): 6 Upper Body Dressing(FIM): 6 Upper Body Dressing (QC): 6 Lower Body Dressing(FIM): 6 Lower Body Dressing (QC): 6 On/Off Footwear (QC): 6 Toileting(FIM): 6 Toileting Hygiene (QC): 6 Toilet/Commode Transfer(FIM): 6 Toilet/Commode Transfer (QC): 6 Tub Transfer(FIM): 6 Shower Transfer(FIM): 6 Additional Goals: 1-Demonstrate ADL Tasks, 2-Verbalize Understanding, 3- ImproveStrength/Luis 1=Demonstrate adherence to instructed precautions during ADL tasks. 2=Patient will verbalize/demonstrate understanding of assistive devices/ modifications for ADL. 3=Patient will improve strength/tolerance for activity to enable patient to perform ADL's. FELIX BLEDSOE PT Oct 20, 2016 09:34
--- NOTE | 2016-10-20 10:30 | Therapy Team Discharge Summary ---
Therapy Discharge Summary Discharge Recommendations Date of Discharge Therapy D/C Recommendations: Home w/ Family Support, Occupational Therapy Home Care, Meals on Wheels Occupational Therapy Pt seen for skilled OT to increase her independence in basic self care to allow her to safely return home and to decrease caregiver burden after a fall and tibial fx. On admission she needed setup for eating, upper body dressing and grooming; min assist with bathing and shower transfer; max assist with lower body dressing and toilet transfer; dependant help of 2 for toileting. She had some difficulty maintaining her weight bearing status and still needed occasional cues at discharge for walker management. By discharge she was modified independent with eating, grooming, dressing, toileting and bathing, with SBA getting in and out of shower. Equipment used included sock aid, dressing stick, spinner concrete pipe, FWW. She will need a transfer tub bench. See tx plan for goals met. Recommend home health OT. DC OT PT Custodial Goals Transplant Nurse Practitioner Goals PT Transplant Nurse Practitioner Goals Time Frame: Oct 24, 2016 Transfers (B,C,W/C) (FIM): 6 Roll Left to Right (QC): 6 Sit to Lying (QC): 6 Lying-Sitting on Side/Bed(QC): 6 Sit to Stand (QC): 6 Chair/Ujp-ky-Orvfx Xfer(QC): 6 Car Transfer (QC): 5 Does the Patient Walk: Yes Gait (FIM): 5 Gait distance (FIM): 8=776-66 ft Distance: 50 ft household distance Walk 10 feet (QC): 5 Walk 10ft-Uneven Surface(QC): 5 Walk 50ft with 2 Turns (QC): 5 Walk 150 ft (QC): 88 Gait Assistive Device: FWW Does the Pt use WC or Scooter?: No Stairs (FIM): 2 # of Steps: 1 Picking up an Object (QC): 88 OT Transplant Nurse Practitioner Goals Transplant Nurse Practitioner Goals Time Frame: Oct 24, 2016 Eating (FIM): 6 (met 10-19-) Eating (QC): 6 (met 10-19-) Oral Hygiene (QC): 6 (met 10-19-) Grooming(FIM): 6 (met 10-19-) Bathing(FIM): 6 (met 10-19-16) Shower/Bathe Self (QC): 6 (met 9-14-17) Upper Body Dressing(FIM): 6 (met 10-19-16) Upper Body Dressing (QC): 6 (met 10-19-16) Lower Body Dressing(FIM): 6 (met 10-19-16) Lower Body Dressing (QC): 6 (met 10-19-16) On/Off Footwear (QC): 6 (met 10-19-16) Toileting(FIM): 6 (met 10-19-16) Toileting Hygiene (QC): 6 (met 10-19-16) Toilet/Commode Transfer(FIM): 6 (met 10-19-16) Toilet/Commode Transfer (QC): 6 (met 10-19-16) Tub Transfer(FIM): 6 Shower Transfer(FIM): 6 (not met 10-19-16) Additional Goals: 1-Demonstrate ADL Tasks, 2-Verbalize Understanding, 3- ImproveStrength/Luis 1=Demonstrate adherence to instructed precautions during ADL tasks. 2=Patient will verbalize/demonstrate understanding of assistive devices/ modifications for ADL. 3=Patient will improve strength/tolerance for activity to enable patient to perform ADL's. KASSIE DUMONT OT Oct 20, 2016 10:30
[2016-10-20 14:39] VITALS: BP 143/79
--- NOTE | 2016-11-08 12:30 | DISCHARGE SUMMARY ---
DATE OF SERVICE: 10/20/2016 HISTORY OF PRESENT ILLNESS: The patient is a 66-year-old , retired female who was living alone in her apartment who fell off a step stool at home and sustained a right tibial plateau fracture. The patient underwent ORIF with orthopedics and made toe touch weightbearing of the right lower extremity. The patient had been independent prior to this and has a supportive family, a daughter who is a nurse at this facility and a sister who is a retired nurse from this facility. Therapies were begun. The patient was felt to be appropriate for inpatient rehabilitation unit. PAST MEDICAL HISTORY: Insulin-dependent diabetes mellitus, glaucoma, depression, insomnia and hypertension. She has had a mastectomy for breast cancer. She was also noted to have a UTI upon evaluation in the ED and was completing a course of p.o. antibiotics. MEDICAL COURSE: The patient was followed by [facility] physicians and Dr. Suh while on rehab unit. She had a recurrent UTI and was placed on antibiotics with good results. UA was positive on 10/17/2016. Culture showed Klebsiella pneumoniae. Her CBC on 10/10/2016 showed WBC 12.2, H and H 8.8/28, platelet count 450 K. Her hemoglobin was on the upward trend. Chemistry on 10/10/2016 showed normal electrolytes, BUN and creatinine. Blood glucose 121 on 10/10/2016, 247 on 10/07. Glucometer readings from 10/18/2016-10/20 varied between 63 and 292. She was afebrile during her stay. Pulse was 88 on 10/20, respirations 18, blood pressure 143/79, O2 sat 96% on room air. Her incision was healing well. Her insulin [facility]. REHABILITATION COURSE: She was assessed by speech therapy upon admission and found to be cognitively intact. They signed off. OT notes upon admission she needed set up for eating, upper body dressing and grooming, min assist for bathing and shower transfers, max assist for lower body dressing and toilet transfers. She was dependent for toileting. She had some difficulty maintaining her weightbearing status and still needed occasional cues at discharge for walker management. By discharge, she was modified independent with eating, grooming, dressing, toileting and bathing and standby assist with getting in and out of shower. Equipment used included Sock-Aid, dressing stick, yarn examiner skeins, 4-wheeled walker. She will need a tub transfer bench. Home health care, OT was recommended. PT notes upon admission, the patient performed bed mobility with mod assist and transfers with min assist, could ambulate 10 feet with a wheeled walker with min assist. The patient has made good progress and upon discharge she is modified independent with bed mobility and transfers, can ambulate 500 feet with a wheeled walker with standby assist. DISCHARGE INSTRUCTIONS: The patient will have followup with home health services and Dr. Gonzalez, orthopedics and a [facility], continue current diet and home Accu-Cheks. DISCHARGE MEDICATIONS: MiraLax 17 grams p.o. b.i.d., Bactrim-DS 1 tablet p.o. b.i.d., amlodipine 10 mg p.o. daily, ASA 81 mg p.o. every day. Lumigan eyedrops one drop both eyes at bedtime, calcium carbonate with vitamin D3 one tablet p.o. b.i.d., Benadryl 25 mg p.o. each day at bedtime, divalproex 500 mg p.o. each day at bedtime, Colace 100 mg p.o. b.i.d., fish oil 1200 mg p.o. daily, hydrochlorothiazide 12.5 mg p.o. daily, Lortab generic 5/325 one tablet p.o. q. 6 hours p.r.n. severe pain, NovoLog FlexPen 0 to 20 units subcu q.i.d. AC and at bedtime as per sliding scale home regimen, Levemir insulin 20 units subcu each day at bedtime, levothyroxine 125 mcg p.o. daily, lisinopril 40 mg p.o. each day at bedtime, melatonin 3 mg p.o. each day at bedtime with vitamin B12, metformin 500 mg p.o. daily and 1000 mg at 1700 hours, Zyprexa 5 mg p.o. each day at bedtime, Pravastatin 40 mg p.o. each day at bedtime, Zoloft 75 mg p.o. each day at bedtime, timolol eyedrops 1 drop both eyes daily. DISCHARGE DIAGNOSES: 1. Rehabilitation, ambulatory dysfunction secondary to fall with resulting right tibial plateau fracture with osteoporosis, status post ORIF, orthopedics, toe touch weightbearing right lower extremity. 2. Urinary tract infection, treated. 3. Recurrent UTI Klebsiella under treatment. 4. Diabetes mellitus type 2, controlled with adjustment in medication. 5. Hypertension, controlled on medication. 6. Depression. On medications. 7. Hypothyroidism on replacement. 8. Anxiety on medication. 9. Postop anemia, improving. 10. Glaucoma on eyedrops. 11. Escherichia coli UTI treated. 12. Long-term use insulin. 13. Long-term use hypoglycemic. 14. History of breast cancer. 15. History right mastectomy. CONDITION AT DISCHARGE: Improved and stable. PROGNOSIS: Rehab prognosis appears good for continued improvement at home and return to independent living once her weightbearing status is advanced by orthopedics at a later time on an outpatient basis. Job ID: [id number] DocumentID: [id number] Dictated Date: 11/07/2016 14:47:04 Cell Plasterer Date: 11/08/2016 12:30:00 Dictated By: LEVON SUH MD
== END 2016-10-20 14:50 | disposition home or self-care (01) | DRG 560 ==
PROVIDERS: ADMIT Physical Medicine & Rehabilitation; ATTEND Physical Medicine & Rehabilitation
DX: M80.061D Age-related osteoporosis with current pathological fracture, right lower leg, subsequent encounter for fracture with routine healing (principal); N39.0 Urinary tract infection, site not specified; E11.9 Type 2 diabetes mellitus without complications; I10 Essential (primary) hypertension; F32.9 Major depressive disorder, single episode, unspecified; E03.9 Hypothyroidism, unspecified; F41.9 Anxiety disorder, unspecified; D64.9 Anemia, unspecified; H40.9 Unspecified glaucoma; B96.20 Unspecified Escherichia coli [E. coli] as the cause of diseases classified elsewhere; B96.1 Klebsiella pneumoniae [K. pneumoniae] as the cause of diseases classified elsewhere; Z79.4 Long term (current) use of insulin; Z79.84 Long term (current) use of oral hypoglycemic drugs; Z85.3 Personal history of malignant neoplasm of breast; Z90.11 Acquired absence of right breast and nipple; W11.XXXD Fall on and from ladder, subsequent encounter; Y92.009 Unspecified place in unspecified non-institutional (private) residence as the place of occurrence of the external cause
CPT/HCPCS: 36415; 80048; 80053; 81000; 82962; 85025; 85027; 87077; 87088; 87186

== ENCOUNTER → 2018-11-05 | Outpatient (CLI) | payer MEDICARE, OTHER ==
[~2018-11-05] MED LIST changes: +ACHD5005 PO; -AMLO10TA2 PO; +AMLO10TA7 PO; +BIMA2.5D4 OU; +CALC-901 PO; +DIPH25TA65 PO; +DIVA500T15 PO; +DOCU-143 PO; +ENOX40DI8 SC; +FISH1CAP15 PO; -HYDR-3812 PO; +HYDR-3820 PO; +HYDR12.5 PO; +IBUP-2055 PO; +MELA1TAB27 PO; +METF-397 PO; +METF-399 PO; +METF-478 PO; -METF1000 PO; -METF500T4 PO; +METF500T8 PO; +POLY17PO31 PO; +SULF1TAB35 PO; +TIMO5DRO27 OU
--- NOTE | 2018-11-05 15:40 | Diagnostic Imaging Report ---
INDICATION: Screening for osteoporosis. COMPARISON: 10/14/2015. FINDINGS: The bone mineral density of the hips and spine was measured. This study was compared to the prior exam of 10/14/2015. The T-score for the spine is -2.8. On the prior exam, the T-score was 3.7. The total T-score for the left hip is -2.4 as opposed to -2.9 on the prior exam. The T-score for the left femoral neck was not measured previously, but on this exam, the T score is -2.9. The total T-score for the right hip is -2.5 as opposed to -3.1 on the prior study. The T-score for the right femoral neck was not measured on the prior exam either. The T-score for today's exam is -2.5. AP Spine L1-L4: [BMD (g/cm2): 0.866] [T-Score: -2.8] [Z-Score: -1.1] [BMD Previous: 0.762] [BMD % Change: 13.6] LT Hip Neck: [BMD (g/cm2): 0.636] [T-Score: -2.9] [Z-Score: -1.2]. LT Hip Total: [BMD (g/cm2):0.704] [T-Score:-2.4] [Z-Score: -0.9] [BMD Previous: 0.639] [BMD % Change: 10.2] RT Hip Neck: [BMD (g/cm2):0.683] [T-Score:-2.6] [Z-Score:-0.8] RT Hip Total: [BMD (g/cm2):0.690] [T-score:-2.5] [Z-Score:-1.0] [BMD Previous:0.615] [BMD % Change:12.2] *Indicates significant change from prior examination based on 95% confidence level. World Health Organization criteria for BMD interpretation classify patients as Normal (T-score at or above -1.0), Osteopenic (T-score between -1.0 and -2.5) or Osteoporotic (T-score at or below -2.5). LIMITATIONS AND MODIFICATION: None. FRACTURE RISK (FRAX SCORE): The ten year probability of (%): Major Osteoporotic Fracture: [17.9] Hip Fracture: [5.7] IMPRESSION: 1. The bone mineral density of the spine and hips has increased since the prior exam. However, there is still osteoporosis of the spine and hips and femoral necks. The only exception is the left total hip T-score which indicates severe osteopenia. 2. See below National Osteoporosis Foundation guidelines on when to potentially initiate pharmacologic therapy. Based on the National Osteoporosis Foundation Guidelines, pharmacologic treatment should be initiated in any of the following, unless clinical conditions suggest otherwise: * Any patient with prior fragility fracture of the hip or vertebrae. A spine fracture indicates 5X risk for subsequent spine fracture and 2X risk for subsequent hip fracture. * Osteoporosis (T-score <-2.5). * Postmenopausal women and men age 50 and older with low bone mass/osteopenia (T-score between -1.0 and -2.5) by DXA and 10-year major osteoporotic fracture greater than 20% or a 10-year probability of hip fracture greater than 3%. These fracture risks are supplied above in the FRAX score, if applicable. * Clinician judgment and/or patient preferences may indicate treatment for people with 10-year fracture probabilities above or below these levels. Dictated by: Dictated on workstation # [id number]
== END ==
LOC: RAD 12:36
PROVIDERS: ATTEND Nurse Practitioner Family
DX: Z13.820 Encounter for screening for osteoporosis (principal); M81.0 Age-related osteoporosis without current pathological fracture; M85.88 Other specified disorders of bone density and structure, other site; N95.9 Unspecified menopausal and perimenopausal disorder
CPT/HCPCS: 77080

== ENCOUNTER 2020-02-20 05:30 | Outpatient (RCR) | payer MEDICARE, OTHER ==
[~2020-02-20] VITALS: Ht 154.9 cm; Wt 60.3 kg
[~2020-02-20 05:30] MED LIST changes: +ACHYD1T PO; +ALEN70TA69 PO; +AMLO-251 PO; -AMLO10TA7 PO; +DULA0.75 SQ; -GLIM4TAB PO; +GLIM4TAB5 PO; -HYDR-3820 PO; -IBUP-2055 PO; +IBUP-2473 PO; +METF-865 PO; -METF500T8 PO; +OXYB15TA19 PO; +TIMO5DRO27 OP; +TRAV5DRO OP; +[UNRECOGNIZED DRUG - CODE] OT
== END 2020-02-20 09:30 | disposition home or self-care (01) ==
LOC: PREOP 05:30
PROVIDERS: ATTEND Surgery
DX: Z01.812 Encounter for preprocedural laboratory examination (principal); R19.7 Diarrhea, unspecified; Z20.822 Contact with and (suspected) exposure to COVID-19
CPT/HCPCS: 87635

== ENCOUNTER 2020-02-24 07:25 | Day surgery (SDC) | payer MEDICARE, OTHER ==
[~2020-02-24] VITALS: Ht 154.9 cm; Wt 60.3 kg
[~2020-02-24 07:25] MED LIST changes: -ALEN70TA69 PO; +ALEN70TA80 PO
[2020-02-24] MEDS ORDERED: LACTATED RINGERS 1,000 ML IV STA (07:34)
[2020-02-24] MEDS ORDERED: LACTATED RINGERS 1,000 ML IV ONE (07:36)
[2020-02-24 07:46] VITALS: BP 143/84
[2020-02-24] MEDS ORDERED: MIDAZOLAM 2 MG/2 ML (VERSED) VIAL ONE (07:50)
[2020-02-24] MEDS ORDERED: PROPOFOL INJECTION 50 ML IV ONE (07:50)
--- NOTE | 2020-02-24 08:08 | Progress Note-Pre Operative ---
Pre-Operative Progress Note H&P Reviewed The H&P was reviewed, patient examined and no changes noted. Date Seen by Provider: Feb 24, 2020 Time Seen by Provider: 08:08 Date H&P Reviewed: Feb 24, 2020 Time H&P Reviewed: 08:08 Pre-Operative Diagnosis: diarrhea VERO LAM DO Feb 24, 2020 08:08
[2020-02-24 09:30] VITALS: BP 116/74
[2020-02-24 09:35] VITALS: BP_SYST 113; BP_SYST 120; BP_DIAS 72; BP_DIAS 94
--- NOTE | 2020-02-24 09:35 | Progress Note-Post Operative ---
Post-Operative Progess Note Surgeon (s)/News Director (s) Surgeon VERO LAM DO News Director: na Pre-Operative Diagnosis diarrhea Post-Operative Diagnosis mucosal change cecum, colon polyps, diverticulosis Procedure & Operative Findings Date of Procedure 02/24/20 Procedure Performed/Findings colonoscopy c cold biopsies cecum, hot bx poylpectomy x 3 Anesthesia Type per kindergarten tutor Estimated Blood Loss Estimated blood loss (mL): none Specimens/Packing Specimens Removed cecum---colon polyps-transverse,ascending, sigmoid VERO LAM DO Feb 24, 2020 09:35
--- NOTE | 2020-02-24 09:36 | Discharge Inst-Simple/Standard ---
Discharge Inst-Standard Discharge Medications New, Converted or Re-Newed RX: RX on Chart Patient Instructions/Follow Up Plan of Care/Instructions/FU: 2 weeks Lu Activity as Tolerated: Yes Discharge Diet: Regular Diet (high fiber) VERO LAM DO Feb 24, 2020 09:36
[2020-02-24 09:55] VITALS: BP 120/94
--- NOTE | 2020-02-24 12:50 | Anesthesia-General Post-Op ---
MAC Patient Condition Mental Status/LOC: Same as Preop Cardiovascular: Satisfactory Nausea/Vomiting: Absent Respiratory: Satisfactory Pain: Controlled Complications: Absent Post Op Complications Complications None Follow Up Care/Instructions Patient Instructions None needed. Anesthesiology Discharge Order Discharge Order Patient is doing well, no complaints, stable vital signs, no apparent adverse anesthesia problems. No complications reported per nursing. FREDRICK RAMIRES CRNA Feb 24, 2020 12:50
--- NOTE | 2020-02-24 14:55 | OPERATIVE REPORT ---
DATE OF SERVICE: 02/24/2020 PREOPERATIVE DIAGNOSIS: Diarrhea. POSTOPERATIVE DIAGNOSES: Mucosal changes of the cecum, colon polyps and diverticulosis. PROCEDURES PERFORMED: Colonoscopy with cold biopsy of the cecum and hot biopsy polypectomy x3. SURGEON: Vero Leigh DO. ANESTHESIA: Per LEAD RIDER. ESTIMATED BLOOD LOSS: None. COMPLICATIONS: None. SPECIMENS: Cecum, cold biopsies, colon polyps of the transverse, ascending and sigmoid colon. INDICATIONS FOR PROCEDURE: The patient is a 69-year-old female with diarrhea and she understands risks and benefits of procedure and wished to proceed with procedure. Consent was signed in the chart. DESCRIPTION OF PROCEDURE: The patient was taken to the endoscopy suite and placed in a left lateral recumbent position. Timeout was performed. Digital rectal exam was performed noting internal hemorrhoids. No other palpable polyps, masses or ulcerations. Scope was inserted in the rectum, advanced all the way to cecum with minimal difficulty. Prep was adequate with lots of irrigation and suction. There were some mucosal changes of the cecum. Cold biopsies were obtained. Scope was then slowly retracted back. A small polyp in the ascending colon, which hot biopsy polypectomy was performed. The scope was then continued to be slowly retracted back. Another polyp in the transverse colon was present, which hot biopsy polypectomy was performed. Scope was then continued to be slowly retracted back. No polyps, masses or ulcerations within the remainder of the transverse and descending colon. In the sigmoid colon, a moderate amount of diverticulosis was present. Another small polyp was present, which hot biopsy polypectomy was performed. Scope was continued to be slowly retracted back into the rectum, where it was also retroflexed noting no other pathology. Scope was returned to its normal position, slowly withdrawn until completely removed. The patient tolerated the procedure well without any complications. She was taken to the recovery room in a stable condition. RECOMMENDATIONS: The patient will increase fiber due to diverticulosis. We will follow up on biopsies. We would recommend repeat colonoscopy in three years. If any issues before that, would consider repeating before that. Job ID: [id number] DocumentID: [id number] Dictated Date: 02/24/2020 09:41:03 Family Assessment Worker Date: 02/24/2020 14:54:22 Dictated By: VERO LEIGH DO MTDD
== END 2020-02-24 09:55 | disposition home or self-care (01) ==
LOC: ENDO 07:25
PROVIDERS: ATTEND Surgery
DX: D12.0 Benign neoplasm of cecum (principal); D12.2 Benign neoplasm of ascending colon; D12.5 Benign neoplasm of sigmoid colon; K63.5 Polyp of colon; K57.30 Diverticulosis of large intestine without perforation or abscess without bleeding; I10 Essential (primary) hypertension; D64.9 Anemia, unspecified; F41.9 Anxiety disorder, unspecified; F32.9 Major depressive disorder, single episode, unspecified; E11.9 Type 2 diabetes mellitus without complications; K21.9 Gastro-esophageal reflux disease without esophagitis; E03.9 Hypothyroidism, unspecified; Z79.899 Other long term (current) drug therapy; Z79.84 Long term (current) use of oral hypoglycemic drugs; Z79.02 Long term (current) use of antithrombotics/antiplatelets; Z83.3 Family history of diabetes mellitus
CPT/HCPCS: 82962; 88305

== ENCOUNTER 2020-03-26 10:39 | Outpatient (RCR) | payer MEDICARE ==
[~2020-03-26 10:39] MED LIST changes: -LISI40TA PO; +LISI40TA9 PO; -POLY17PO31 PO; +POLY17PO54 PO; +SERT-413 PO; -SERT50TA9 PO
== END 2020-06-08 | disposition home or self-care (01) ==
LOC: LAB 10:39
PROVIDERS: ATTEND Surgery
DX: R19.7 Diarrhea, unspecified (principal)
CPT/HCPCS: 87015; 87045; 87046; 87324; 87328; 87329; 87449; 87899

== ENCOUNTER → 2021-03-29 | Outpatient (CLI) | payer MEDICARE ==
[~2021-03-29] MED LIST changes: -SULF1TAB35 PO; +SULF1TAB38 PO
--- NOTE | 2021-03-29 10:01 | Diagnostic Imaging Report ---
INDICATION: 70-year-old postmenopausal female. COMPARISON: 11/05/2018 FINDINGS: AP Spine L1-L4: [BMD (g/cm2): 0.871] [T-Score: -2.7] [Z-Score: -0.8] [BMD Previous: 0.866] [BMD % Change: 0.6] LT Hip Neck: [BMD (g/cm2): 0.684] [T-Score: -2.5] [Z-Score: -0.6] LT Hip Total: [BMD (g/cm2):0.702] [T-Score:-2.4] [Z-Score: -0.7] [BMD Previous: 0.704] [BMD % Change: -0.3] RT Hip Neck: [BMD (g/cm2):0.651] [T-Score:-2.8] [Z-Score:-0.9] RT Hip Total: [BMD (g/cm2):0.670] [T-score:-2.7] [Z-Score:-0.9] [BMD Previous:0.690] [BMD % Change:-2.9] *Indicates significant change from prior examination based on 95% confidence level. World Health Organization criteria for BMD interpretation classify patients as Normal (T-score at or above -1.0), Osteopenic (T-score between -1.0 and -2.5) or Osteoporotic (T-score at or below -2.5). LIMITATIONS AND MODIFICATION: None. FRACTURE RISK (FRAX SCORE): The ten year probability of (%): Major Osteoporotic Fracture: [27.3] Hip Fracture: [8.8] IMPRESSION: 1. Osteopenia (Low bone mass). 2. No significant change in bone mineral density since prior examination. 3. See below National Osteoporosis Foundation guidelines on when to potentially initiate pharmacologic therapy. Based on the National Osteoporosis Foundation Guidelines, pharmacologic treatment should be initiated in any of the following, unless clinical conditions suggest otherwise: * Any patient with prior fragility fracture of the hip or vertebrae. A spine fracture indicates 5X risk for subsequent spine fracture and 2X risk for subsequent hip fracture. * Osteoporosis (T-score <-2.5). * Postmenopausal women and men age 50 and older with low bone mass/osteopenia (T-score between -1.0 and -2.5) by DXA and 10-year major osteoporotic fracture greater than 20% or a 10-year probability of hip fracture greater than 3%. These fracture risks are supplied above in the FRAX score, if applicable. * Clinician judgement and/or patient preferences may indicate treatment for people with 10-year fracture probabilities above or below these levels. Dictated by: Dictated on workstation # [id number]
== END ==
LOC: RAD 09:00
PROVIDERS: ATTEND Internal Medicine Endocrinology, Diabetes & Metabolism
DX: M81.0 Age-related osteoporosis without current pathological fracture (principal); M85.88 Other specified disorders of bone density and structure, other site; Z78.0 Asymptomatic menopausal state
CPT/HCPCS: 77080

== ENCOUNTER → 2021-10-05 | Outpatient (CLI) | payer MEDICARE ==
[2021-10-05 10:03] VITALS: BP 153/94
--- NOTE | 2021-10-05 17:28 | Cardiology Stress Test Report ---
Stress Test Report Date of Procedure/Referring: Date of Procedure: Oct 05, 2021 [facility] Admitting Physician Admitting Physician: Attending Physician: Fabricio Vazquez DO Indications: pre syncope Baseline Heart Rate: 87 Baseline Blood Pressure: Blood Pressure Systolic: 153 Blood Pressure Diastolic: 94 Baseline EKG: Baseline EKG: NSR Summary/Conclusion: Summary: In summary, the patient started exercising with a baseline heart rate, blood pressure and EKG mentioned above Patient was able to exercise for a total of 3 minutes on Popeye protocol, METs 4.6 Maximum heart rate 134 Maximum blood pressure 199/79 Stress EKG, Minimal nondiagnostic changes Recovery EKG , Return to baseline Conclusion: 1. Poor exercise tolerance for a total of 3 minutes on standard Popeye protocol, 4.6 METS achieving 91% of maximum expected heart rate 2. Severe hypertensive response to exercise with peak blood pressure 199/79 return to baseline during recovery 3. Nondiagnostic EKG changes with exercise return to baseline during recovery Copy Copies To 1: [facility] [place] TAWNY CHERRY MD Oct 05, 2021 17:28
== END ==
LOC: CARD 10:00
PROVIDERS: ATTEND Pediatrics
DX: R55 Syncope and collapse (principal)
CPT/HCPCS: 93017

== ENCOUNTER 2021-10-21 08:50 | Emergency (ER) | payer MEDICARE ==
[~2021-10-21] VITALS: Ht 154 cm; Wt 56.0 kg
--- NOTE | 2021-10-21 10:38 | ED General ---
General Chief Complaint: Glucose Problems Stated Complaint: ABNORMAL LABS Nursing Triage Note: sent here by dr Corbett office because her labs she had drawn on sunday cme back with a glucose of greater than 800. Today patient states her blood glucose was 302 [address], she took her normal dose of regular insulin 10 units and triceba 18 units. currently bg is 211 Source of Information: Patient, Family (daughter) Exam Limitations: No Limitations History of Present Illness Date Seen by Provider: Oct 21, 2021 Time Seen by Provider: 10:25 Initial Comments Patient is a 71-year-old male who presents to the emergency department today with a chief complaint of elevated blood sugars. Patient has been fighting a "tongue infection" for the last 4 to 6 weeks. She has seen her provider on multiple occasions. She also has had some difficulty with swallowing and a "lump" in the left anterior neck. She states she has follow-up scheduled with Dr. Leigh next Sunday for a swallow study and possible EGD. Patient endorses significant pain in her mouth, with her tongue. She states really nothing has made it any better. She saw Dr. Won Wong on Sunday and had some blood work drawn. They called her this morning and told her that her blood sugar was 800 and that she should come to the emergency department. Patient denies any fevers, chills, URI symptoms. No shortness of breath or productive cough. No abdominal pain, nausea, vomiting. She did have 1 episode of diarrhea this morning. No dysuria, urgency or frequency. No rashes joint pain or swelling. She does not have a headache. She states she has had fairly significant increased thirst. She does check her blood sugars 4 times a day. When she arrived to the emergency room bedside testing showed a blood sugar little over 300. She is ambulatory to the room under her own power. Maintains no complaints All other review of systems reviewed and negative except as stated Timing/Duration: 2-3 Days Associated Systoms: Denies Symptoms Allergies and Home Medications Allergies Coded Allergies: No Known Drug Allergies (Unverified , 11/26/15) Patient Home Medication List Home Medication List Reviewed: Yes Alendronate Sodium (Alendronate Sodium) 70 Mg Tablet, 70 MG PO DAILY, (Reported) Entered as Reported by: TERRI PEREZ on 02/17/20 1122 Amlodipine Besylate (Amlodipine Besylate) 10 Mg Tablet, 10 MG PO DAILY, (Reported) Entered as Reported by: TERRI PEREZ on 02/17/20 1122 Ciprofloxacin HCl/Fluocinolone (Ciproflox-Fluocinln 0.3-0.025%) 1 Each Vial, 1 EACH OT NEEDED, (Reported) Entered as Reported by: TERRI PEREZ on 02/17/20 1122 Clotrimazole (Clotrimazole) 10 Mg Suzan, 10 MG MM 5XD Prescribed by: VIKTOR HARDIN on 10/21/21 1144 Dulaglutide (Trulicity) 0.75 Mg/0.5 Ml Pen.injctr, 0.75 MG SQ NEEDED, (Reported) Entered as Reported by: TERRI PEREZ on 02/17/20 1122 Hydrochlorothiazide (Hydrochlorothiazide) 12.5 Mg Capsule, 12.5 MG PO DAILY, (Reported) Entered as Reported by: JC MANLEY on 10/06/16 1034 Insulin Aspart (Novolog Flexpen) 300 Units/3 Ml Solution, 0-20 UNITS SQ ACHS, (Reported) Entered as Reported by: JOJO GUERRIER on 07/13/16 1334 Insulin Determir (Levemir) 1,000 Units/10 Ml Soln, 20 UNITS SQ HS, (Reported) Entered as Reported by: MAYA ADAME on 11/01/15 1719 Levothyroxine Sodium (Levothyroxine Sodium) 125 Mcg Tablet, 125 MCG PO DAILY, (Reported) Entered as Reported by: JOJO GUERRIER on 07/13/16 1332 Lisinopril (Lisinopril) 40 Mg Tablet, 40 MG PO HS, (Reported) Entered as Reported by: MAYA ADAME on 11/01/15 1719 Melatonin/Pyridoxine HCl (B6) (Melatonin 3 mg Tablet) 1 Each Tablet, 3 MG PO HS, (Reported) Entered as Reported by: JC MANLEY on 10/06/16 1034 Metformin HCl (Metformin HCl ER) 500 Mg Tab.er.24h, 500 MG PO DAILY, (Reported) Entered as Reported by: JC MANLEY on 10/06/16 1034 Olanzapine (Zyprexa) 5 Mg Tablet, 5 MG PO HS, (Reported) Entered as Reported by: JOJO GUERRIER on 07/13/16 1334 Oxybutynin Chloride (Oxybutynin Chloride ER) 15 Mg Tab.er.24, 15 MG PO DAILY, (Reported) Entered as Reported by: TERRI PEREZ on 02/17/20 112 Pravastatin Sodium (Pravastatin Sodium) 40 Mg Tablet, 40 MG PO HS, (Reported) Entered as Reported by: MAYA ADAME on 11/01/15 1719 Sertraline HCl (Sertraline HCl) 50 Mg Tablet, 75 MG PO HS, (Reported) Entered as Reported by: MAYA ADAME on 11/01/15 1719 Timolol (Betimol) 5 Ml Drops, 5 ML OP NEEDED, (Reported) Entered as Reported by: TERRI PEREZ on 02/17/20 112 Travoprost (Travatan Z) 5 Ml Drops, 5 ML OP NEEDED, (Reported) Entered as Reported by: TERRI PEREZ on 02/17/20 112 Review of Systems Review of Systems Constitutional: see HPI EENTM: other (pain in tongue) Respiratory: no symptoms reported Cardiovascular: no symptoms reported Gastrointestinal: no symptoms reported Genitourinary: no symptoms reported Musculoskeletal: no symptoms reported Skin: no symptoms reported Hematologic/Lymphatic: Other (increased thirst) All Other Systems Reviewed Negative Unless Noted: Yes Past Oobmfum-Jjixbb-Iqmnbk Hx Patient Social History Tobacco Use?: No Use of E-Cig and/or Vaping dev: No Substance use?: No Alcohol Use?: No Immunizations Up To Date Tetanus Booster (TDap): Unknown First/Initial COVID19 Vaccinat: 2020 Second COVID19 Vaccination Andriy: 2020 Third COVID19 Vaccination Date: 2020 Seasonal Allergies Seasonal Allergies: No Past Medical History Surgery/Hospitalization HX: htn, type 2 insulin dependent diabetic, hupothyroidism, anemia, hyperlipidema, anxiety, depression Surgeries: Yes (RIGHT BREAST REMOVED) Breast, Tubal Ligation Respiratory: No Currently Using CPAP: No Currently Using BIPAP: No Cardiac: Yes High Cholesterol, Hypertension Neurological: No Reproductive Disorders: No ALLOPATHIC DOCTOR History: Tubal Ligation, Menopausal Sexually Transmitted Disease: No HIV/AIDS: No Genitourinary: Yes (current UTI) Gastrointestinal: Yes Gastroesophageal Reflux, Diverticulosis Musculoskeletal: Yes (right tibia fx) Arthritis Endocrine: Yes Diabetes, Insulin dep, Hypothyroidsim HEENT: Yes Loss of Vision: Bilateral Hearing Impairment: Hard of Hearing, Bilateral Hearing Aide Cancer: Yes (Right mastectomy) Breast Did You Recieve Any Treatments: Yes What Type of Treatment Did You: Surgical Intervention Psychosocial: Yes Sleep Difficulties, Anxiety, Depression Integumentary: No Blood Disorders: Yes (anemia) Adverse Reaction/Blood Tranf: No (HAS HAD BLOOD WITH NO REACTION) Family Medical History Alzheimer's disease G8 SISTER Dementia G8 SISTER Diabetes mellitus 19 MOTHER FH: breast cancer G8 SISTER Cancer, Diabetes Physical Exam Vital Signs Vital Signs - First Documented 10/21/21 09:05 Temp 36.5 Pulse 93 Resp 18 B/P (MAP) 146/90 (108) Pulse Ox 99 Capillary Refill : Height, Weight, BMI Height: 5'1.00" Weight: 141lbs. 6.0oz. 64.417440ta; 23.00 BMI Method:Stated General Appearance: No Apparent Distress, WD/WN Eyes: Bilateral Eye Normal Inspection HEENT: PERRL/EOMI, Other (tongue appears dry and deeply fissured. no lesions/ulcers) Neck: Supple Respiratory: Lungs Clear, Normal Breath Sounds, No Accessory Muscle Use, No Respiratory Distress Cardiovascular: Regular Rate, Rhythm Gastrointestinal: Non Tender, Soft Extremity: Normal Capillary Refill, Normal Inspection, Normal Range of Motion, Non Tender Neurologic/Psychiatric: Alert, Oriented x3, No Motor/Sensory Deficits, Normal Mood/Affect Skin: Normal Color, Warm/Dry Progress/Results/Core Measures Suspected Sepsis SIRS Temperature: Pulse: 93 Respiratory Rate: 18 Laboratory Tests 10/21/21 09:30: White Blood Count 12.3H Blood Pressure 146 /90 Mean: 108 Laboratory Tests 10/21/21 09:30: Creatinine 0.78, Platelet Count 290 Results/Orders Lab Results Laboratory Tests Test 10/21/21 09:30 10/21/21 09:45 Range/Units White Blood Count 12.3 H 4.3-11.0 10^3/uL Red Blood Count 4.14 3.80-5.11 10^6/uL Hemoglobin 11.9 11.5-16.0 g/dL Hematocrit 35 35-52 % Mean Corpuscular Volume 86 80-99 fL Mean Corpuscular Hemoglobin 29 25-34 pg Mean Corpuscular Hemoglobin Concent 34 32-36 g/dL Red Cell Distribution Width 13.7 10.0-14.5 % Platelet Count 290 130-400 10^3/uL Mean Platelet Volume 10.1 9.0-12.2 fL Immature Granulocyte % (Auto) 1 % Neutrophils (%) (Auto) 63 42-75 % Lymphocytes (%) (Auto) 24 12-44 % Monocytes (%) (Auto) 8 0-12 % Eosinophils (%) (Auto) 4 0-10 % Basophils (%) (Auto) 0 0-10 % Neutrophils # (Auto) 7.7 1.8-7.8 10^3/uL Lymphocytes # (Auto) 3.0 1.0-4.0 10^3/uL Monocytes # (Auto) 1.0 0.0-1.0 10^3/uL Eosinophils # (Auto) 0.5 H 0.0-0.3 10^3/uL Basophils # (Auto) 0.0 0.0-0.1 10^3/uL Immature Granulocyte # (Auto) 0.1 0.0-0.1 10^3/uL Percent Immature Platelet Fraction 2.4 0.0-7.6 % Sodium Level 135 135-145 MMOL/L Potassium Level 3.4 L 3.6-5.0 MMOL/L Chloride Level 101 98-107 MMOL/L Carbon Dioxide Level 18 L 21-32 MMOL/L Anion Gap 16 H 5-14 MMOL/L Blood Urea Nitrogen 13 7-18 MG/DL Creatinine 0.78 0.60-1.30 MG/DL Estimat Glomerular Filtration Rate 80 BUN/Creatinine Ratio 17 Glucose Level 214 H 70-105 MG/DL Calcium Level 9.3 8.5-10.1 MG/DL C-Reactive Protein High Sensitivity 0.51 H 0.00-0.50 MG/DL Glucometer 211 H 70-110 MG/DL My Orders Orders - VIKTOR HARDIN MD Cbc With Automated Diff (10/21/21 10:34) Basic Metabolic Panel (10/21/21 10:34) Hs C Reactive Protein (10/21/21 10:34) Ns Iv 500 Ml (Sodium Chloride 0.9%) (10/21/21 11:30) Medications Given in ED Current Medications Medications Dose Ordered Sig/Terry Route Start Time Stop Time Status Last Admin Dose Admin Sodium Chloride 500 ml @ 999 mls/hr Q31M ONCE IV 10/21/21 11:30 10/21/21 12:00 10/21/21 11:31 999 MLS/HR Vital Signs/I&O 10/21/21 09:05 Temp 36.5 Pulse 93 Resp 18 B/P (MAP) 146/90 (108) Pulse Ox 99 Capillary Refill : Blood Pressure Mean: 108 Progress Note : Time: 11:26 Progress Note Patient's blood sugar about 200. She looks good and is completely asymptomatic of any illness or other acute problem. The tongue infection is long standing and being followed by her PCP. Will hydrate her a little to boost her up as her appetite is down due to the sore tongue. Encouraged close follow up with Dr Wong. Return precautions provided. Departure Impression Primary Impression: Diabetes mellitus Qualified Codes: E13.638 - Other specified diabetes mellitus with other oral complications; Z79.4 - FDC (current) use of insulin Additional Impressions: Stomatitis Tongue, fissured Disposition: 01 HOME, SELF-CARE Condition: Stable Departure-Patient Inst. Decision time for Depature: 11:28 Referrals: WON WONG DO (PCP/Family) Primary Care Physician Patient Instructions: Clotrimazole (Oral) Add. Discharge Instructions: I have given you another prescription for an oral antifungal medication. Please use this as directed. It may help clear up any yeast in the mouth better than the Nystatin. It will also help the pain. Check your blood sugars often. If you have any new, emergent or worsening complaints, please come back to the Emergency Department for re-evaluation. Keep your follow up appointments with your doctors. Scripts Clotrimazole (Clotrimazole) 10 Mg Suzan 10 MG MM 5XD, #50 TAB 1 tablet 5 times a day; let slowly dissolve in the mouth Prov: VIKTOR HARDIN MD 10/21/21 Copy Copies To 1: WON WONG KATHRYN M MD Oct 21, 2021 10:38
[2021-10-21 10:41] LABS: HEMOGLOBIN 11.9 g/dL (11.5-16.0); MEAN CORPUSCULAR VOLUME 86 fL (80-99)
[2021-10-21 10:42] LABS: BASOPHILS % (AUTO) 0 % (0-10); EOSINOPHILS # (AUTO) 0.5 10^3/uL (0.0-0.3); EOSINOPHILS % (AUTO) 4 % (0-10); HEMATOCRIT 35 % (35-52); LYMPHOCYTES % (AUTO) 24 % (12-44); MEAN CORPUSCULAR HEMOGLOBIN 29 pg (25-34); MEAN CORPUSCULAR HGB CONC 34 g/dL (32-36); MEAN PLATELET VOLUME 10.1 fL (9.0-12.2); MONOCYTES % (AUTO) 8 % (0-12); NEUTROPHILS # (AUTO) 7.7 10^3/uL (1.8-7.8); NEUTROPHILS % (AUTO) 63 % (42-75); PLATELET COUNT 290 10^3/uL (130-400); WHITE BLOOD COUNT 12.3 10^3/uL (4.3-11.0)
[2021-10-21 10:45] LABS: POTASSIUM 3.4 MMOL/L (3.6-5.0)
[2021-10-21 10:47] LABS: CALCIUM 9.3 MG/DL (8.5-10.1)
[2021-10-21 10:51] LABS: CREATININE SERUM 0.78 MG/DL (0.60-1.30)
[2021-10-21] MEDS ORDERED: NS IV 500 ML 500 ML IV ONE (11:30)
[2021-10-21] MEDS ORDERED: CLOT10TR MM (11:44)
[2021-10-21 11:55] VITALS: BP 129/73
== END 2021-10-21 11:55 | disposition home or self-care (01) ==
LOC: EDUNIT# 08:50 → ER 08:52
DX: E11.9 Type 2 diabetes mellitus without complications (principal); K12.1 Other forms of stomatitis; K14.5 Plicated tongue; Z79.4 Long term (current) use of insulin
CPT/HCPCS: 36415; 80048; 82947; 85025; 86141; 99281

== ENCOUNTER → 2021-10-26 | Outpatient (CLI) | payer MEDICARE ==
[~2021-10-26] MED LIST changes: +BARIUM for suspension 96% w/w (Vanilla Silq Medium Density) PO ONE; +BARIUM for suspension 98% w/w (Vanilla Silq High Density) PO ONE; +CLOT10TR MM
--- NOTE | 2021-10-26 10:22 | Diagnostic Imaging Report ---
CLINICAL INDICATION: Patient with left neck lump. EXAM: Focused ultrasound of the left neck area and right side for comparison. COMPARISON: None. FINDINGS AND IMPRESSION: 1: There is a 1.2 cm x 0.5 cm x 0.9 cm lymph node with central fatty hilum and vascularity seen which has benign characteristics. This is in the left neck area in the region concerning for lump. 2: There is no other neck soft tissue abnormality involving the left side of the neck. 3: The right side of the neck shows no significant abnormality. Dictated by: Dictated on workstation # [id number]
--- NOTE | 2021-10-26 11:14 | Diagnostic Imaging Report ---
INDICATION: Difficulty swallowing. Patient ingested effervescent crystals as well as thin and thick barium and imaging of the esophagus was performed in multiple obliquities. Preliminary radiograph of the chest is unremarkable. Images of the esophagus demonstrate a smooth contour. No mass or stricture is identified. No gastroesophageal reflux or hiatal hernia was demonstrated. There are occasional tertiary contractions present. IMPRESSION: Generalized esophageal dysmotility. Study is otherwise unremarkable. No mass or stricture is identified. Dictated by: Dictated on workstation # [id number]
== END ==
LOC: RAD 09:00
PROVIDERS: ATTEND Surgery
DX: R22.1 Localized swelling, mass and lump, neck (principal); R13.10 Dysphagia, unspecified
CPT/HCPCS: 74220; 76536

== ENCOUNTER 2021-11-30 12:28 | Outpatient (RCR) | payer MEDICARE ==
[2021-11-28] MEDS: IRON SUCROSE 200 MG/10 ML (VENOFER) VIAL IV SCH (12:59)
[2021-11-28 13:01] VITALS: BP 127/88
[~2021-11-30 12:28] MED LIST changes: -ALEN70TA2 PO; +ALEN70TA85 PO; -BARIUM for suspension 96% w/w (Vanilla Silq Medium Density) PO ONE; -BARIUM for suspension 98% w/w (Vanilla Silq High Density) PO ONE
[2021-11-30] MEDS: IRON SUCROSE 200 MG/10 ML (VENOFER) VIAL IV SCH (12:43)
[2021-11-30 13:25] VITALS: BP 113/59
== END 2021-11-30 13:25 | disposition home or self-care (01) ==
LOC: SDC 12:28
PROVIDERS: ATTEND Pediatrics
DX: D50.9 Iron deficiency anemia, unspecified (principal)
CPT/HCPCS: 96365

== ENCOUNTER → 2022-03-09 | Outpatient (CLI) | payer MEDICARE ==
[~2022-03-09] MED LIST changes: +HOLD METFORMIN - RECEIVED CONTRAST 20 ML VIAL IV SCH; +IOHEXOL 350 MG/ML 100 ML (OMNIPAQUE 350) VIAL IV ONE; +NS 100 ML (IVPB) BAG IV ONE
[2022-03-09 10:28] LABS: CREATININE SERUM 0.71 MG/DL (0.60-1.30)
--- NOTE | 2022-03-09 15:31 | Diagnostic Imaging Report ---
CLINICAL INDICATIONS: Patient had wisdom teeth pulled in July of 2021. Patient has swollen lymph nodes in throat area. EXAM: Axial CT scan of the neck soft tissue performed with 75 mL of Omnipaque 350 IV contrast. Sagittal and coronal reformatted images are created. COMPARISON: Ultrasound of the neck soft tissue dated 10/26/2021. FINDINGS: Limited visualization intracranial structures are unremarkable. The nasopharynx, oropharynx, hypopharynx, laryngeal soft tissue structures are symmetric and unremarkable. Dental streak artifact limits evaluation of the oral cavity and neck structures on the same plane. The visualized portions of the lower cavity, tongue, sublingual and submandibular regions are unremarkable. Salivary glands are unremarkable. Heterogeneous thyroid gland is noted. There is a 2.1 cm x 1.5 cm heterogeneous nodular area involving left thyroid lobe. There is no lymphadenopathy. The visualized upper lung costa are clear. There are degenerative spurs and facet arthropathy involving the cervical spine. Visualized intracranial structures show no significant abnormality. There is moderate area of consolidation involving the left maxillary sinus. There is mild mucosal thickening involving the frontal sinus and ethmoid sinus. Mastoid air cells are clear. IMPRESSION: 1: There is a 2.1 cm nodule involving the left thyroid lobe. Thyroid gland is heterogeneous. Nonemergent thyroid ultrasound would better evaluate. 2: There are small bilateral neck lymph nodes which are not significantly enlarged by size criteria. 3: The remainder of the neck soft tissue structures show no significant abnormality. 4. Paranasal sinus disease. Dictated by: Dictated on workstation # [id number]
== END ==
LOC: RAD 10:01
PROVIDERS: ATTEND Surgery
DX: E04.1 Nontoxic single thyroid nodule (principal); J32.9 Chronic sinusitis, unspecified
CPT/HCPCS: 36415; 70491; 82565; 84520

== ENCOUNTER → 2022-03-17 | Outpatient (CLI) | payer MEDICARE ==
[~2022-03-17] MED LIST changes: -HOLD METFORMIN - RECEIVED CONTRAST 20 ML VIAL IV SCH; -IOHEXOL 350 MG/ML 100 ML (OMNIPAQUE 350) VIAL IV ONE; -NS 100 ML (IVPB) BAG IV ONE
--- NOTE | 2022-03-17 10:55 | Diagnostic Imaging Report ---
INDICATION: Dysphasia. Procedure was performed in conjunction with speech pathology. Video fluoroscopy was performed during swallowing of barium multiple consistencies. A total of 81 seconds of fluoroscopic time was utilized. Patient ingested thin barium as well as applesauce, banana and cracker consistency. Oral phase unremarkable. There is normal epiglottic tilt and laryngeal elevation. No laryngeal penetration or aspiration was observed. Mild vallecular residue was noted with multiple consistencies, however this did clear with a 2nd swallow. IMPRESSION: Unremarkable modified barium swallow apart from mild vallecular residue. No penetration or aspiration was observed. Dictated by: Dictated on workstation # [id number]
== END ==
LOC: RAD 09:34
PROVIDERS: ATTEND Nurse Practitioner
DX: R13.10 Dysphagia, unspecified (principal)
CPT/HCPCS: 74230

== ENCOUNTER → 2022-04-04 | Outpatient (RCR) | payer MEDICARE ==
[~2022-04-04] MED LIST changes: +ABAL1.56 SQ; +ASPI-999 PO; +DIVA250T2 PO; +EMPA1TAB15 PO; +INSU100V37 SQ; +MIRA25TA PO
== END | disposition home or self-care (01) ==
PROVIDERS: ATTEND Pediatrics
DX: R68.84 Jaw pain (principal)

== ENCOUNTER 2022-04-05 05:35 | Outpatient (CLI) | payer MEDICARE ==
[~2022-04-05] VITALS: Ht 154.9 cm; Wt 51.3 kg
[~2022-04-05 05:35] MED LIST changes: -ABAL1.56 SQ; -ASPI-999 PO; -DIVA250T2 PO; -EMPA1TAB15 PO; -INSU100V37 SQ; -MIRA25TA PO
[2022-04-05] MEDS ORDERED: MIRA25TA PO (14:56)
[2022-04-05] MEDS ORDERED: INSU100V37 SQ (14:56)
[2022-04-05] MEDS ORDERED: DIVA250T2 PO (14:56)
[2022-04-05] MEDS ORDERED: EMPA1TAB15 PO (14:56)
[2022-04-05] MEDS ORDERED: ASPI-999 PO (14:56)
[2022-04-05] MEDS ORDERED: ABAL1.56 SQ (14:56)
== END 2022-04-05 15:04 | disposition home or self-care (01) ==
LOC: PREOP 05:35
PROVIDERS: ATTEND Surgery
DX: Z01.818 Encounter for other preprocedural examination (principal)

== ENCOUNTER 2022-04-11 11:48 | Day surgery (SDC) | payer MEDICARE ==
[~2022-04-11] VITALS: Ht 155 cm; Wt 51.3 kg
[~2022-04-11 11:48] MED LIST changes: -PANT40TA2 PO
[2022-04-11] MEDS ORDERED: LACTATED RINGERS 1,000 ML IV STA (11:52)
[2022-04-11] MEDS ORDERED: LACTATED RINGERS 1,000 ML IV ONE (11:56)
[2022-04-11] MEDS ORDERED: HURRICAINE EXT TUBE (BENZOCAINE) ONE (11:56)
[2022-04-11] MEDS ORDERED: HURRICAINE EXT TUBE (BENZOCAINE) XX PRN (12:00)
[2022-04-11 13:15] VITALS: BP 136/81
--- NOTE | 2022-04-11 13:31 | Progress Note-Pre Operative ---
Pre-Operative Progress Note Date H&P Reviewed: Apr 11, 2022 Time H&P Reviewed: 13:31 History & Physical: H&P Reviewed, Patient Examed, No changes noted Pre-Operative Diagnosis: Dysphagia, throat/neck pain VERO LAM DO Apr 11, 2022 13:31
[2022-04-11] MEDS ORDERED: PROPOFOL INJECTION 50 ML IV ONE (14:51)
--- NOTE | 2022-04-11 15:13 | Progress Note-Post Operative ---
Post-Operative Progess Note Surgeon (s)/Security Investigator (s) Surgeon VERO LAM DO Security Investigator: na Pre-Operative Diagnosis Dysphagia, throat/neck pain Post-Operative Diagnosis Antral Mass Hiatal hernia Procedure & Operative Findings Date of Procedure 04/11/22 Procedure Performed/Findings EGD with cold biopsy of antral mass Anesthesia Type per mixing machine tender cork rod Estimated Blood Loss Estimated blood loss (mL): none Specimens/Packing Specimens Removed Antral mass x 2 VERO LAM DO Apr 11, 2022 15:13
[2022-04-11 15:15] VITALS: BP 177/81
--- NOTE | 2022-04-11 15:16 | Anesthesia-General Post-Op ---
MAC Patient Condition Mental Status/LOC: Same as Preop Cardiovascular: Satisfactory Nausea/Vomiting: Absent Respiratory: Satisfactory Pain: Controlled Complications: Absent Post Op Complications Complications None Follow Up Care/Instructions Patient Instructions None needed. Anesthesiology Discharge Order Discharge Order Patient is doing well, no complaints, stable vital signs, no apparent adverse anesthesia problems. No complications reported per nursing. FREDRICK RAMIRES CRNA Apr 11, 2022 15:16
[2022-04-11] MEDS ORDERED: PANT40TA2 PO (15:17)
--- NOTE | 2022-04-11 15:17 | Discharge Inst-Simple/Standard ---
Discharge Inst-Standard Discharge Medications New, Converted or Re-Newed RX: Transmitted to Pharmacy Patient Instructions/Follow Up Plan of Care/Instructions/FU: 2 weeks Lu Activity as Tolerated: Yes Discharge Diet: Regular Diet VERO LAM DO Apr 11, 2022 15:15
[2022-04-11 15:20] VITALS: BP 126/71
[2022-04-11 15:30] VITALS: BP 121/69
[2022-04-11 15:55] VITALS: BP 115/74
--- NOTE | 2022-04-11 20:20 | OPERATIVE REPORT ---
DATE OF SERVICE: 04/11/2022 PREOPERATIVE DIAGNOSES: Dysphagia, neck pain. POSTOPERATIVE DIAGNOSES: Antral mass, small hiatal hernia. PROCEDURES: EGD with biopsies of antral mass. SURGEON: Vero Leigh DO ANESTHESIA: Per GARNISHMENT SPECIALIST. ESTIMATED BLOOD LOSS: Scant. COMPLICATIONS: None. INDICATIONS: The patient is a 71-year-old female with symptoms of dysphagia and neck pain. She understands risks and benefits of procedure and wishes to proceed. Consent was signed in chart. DESCRIPTION OF PROCEDURE: The patient was taken to the endoscopy suite, placed in left lateral recumbent position. Timeout was performed. Scope was inserted in the mouth, down the esophagus, stomach, and into the duodenum without difficulty. No polyps, masses or ulcerations within the duodenum. Scope was slowly retracted back until stomach. In antral portion, a small mass present. Cold biopsies were obtained. No other pathology noted. Scope was retroflexed noting a small hiatal hernia. Scope was returned to its normal position, slowly withdrawn until distal esophagus. No polyps, masses or ulcerations. Scope was then slowly retracted back until completely removed, noting no other pathology. The patient tolerated the procedure well, no complications, taken to recovery room in stable condition. RECOMMENDATIONS: The patient will be started on Protonix 40 mg daily. Await biopsy results. If nondiagnostic, we would consider repeating EGD for further biopsies. Further recommendations pending. Job ID: [id number] DocumentID: [id number] Dictated Date: 04/11/2022 15:18:22 Information Clerk Date: 04/11/2022 20:17:00 Dictated By: VERO LEIGH DO
== END 2022-04-11 15:56 | disposition home or self-care (01) ==
LOC: ENDO 11:48
PROVIDERS: ATTEND Surgery
DX: K31.89 Other diseases of stomach and duodenum (principal); K44.9 Diaphragmatic hernia without obstruction or gangrene; E11.9 Type 2 diabetes mellitus without complications; Z79.4 Long term (current) use of insulin; Z79.84 Long term (current) use of oral hypoglycemic drugs; Z79.85 Long-term (current) use of injectable non-insulin antidiabetic drugs

== ENCOUNTER → 2022-04-11 | Outpatient (CLI) | payer MEDICARE ==
[~2022-04-11] MED LIST changes: +ABAL1.56 SQ; +ASPI-999 PO; +DIVA250T2 PO; +EMPA1TAB15 PO; +INSU100V37 SQ; +MIRA25TA PO; +PANT40TA2 PO
--- NOTE | 2022-04-11 16:25 | Diagnostic Imaging Report ---
PROCEDURE: US Thyroid. TECHNIQUE: Multiple real-time grayscale images were obtained of the thyroid in various projections. INDICATION: Thyroid nodule. COMPARISON: CT of the neck on 03/09/2022 FINDINGS: The right thyroid lobe measures 3.1 x 1.0 x 0.9 cm and has a heterogenous appearance. The left thyroid lobe measures 5.1 x 1.8 x 1.8 cm and has a heterogenous appearance. The isthmus measures 0.4 cm and has a heterogenous appearance. Left inferior thyroid lobe nodule measures 2.2 x 1.3 x 1.5 cm and is solid, isoechoic, with ill-defined margins. Right inferior thyroid lobe nodule measuring 0.5 x 0.4 x 0.5 cm and is solid and hyperechoic with smooth margins. IMPRESSION: Bilateral TI-RADS 2 nodules. Dictated by: Dictated on workstation # [id number]
== END ==
LOC: RAD 11:45
PROVIDERS: ATTEND Internal Medicine Endocrinology, Diabetes & Metabolism
DX: E04.2 Nontoxic multinodular goiter (principal)
CPT/HCPCS: 76536

== ENCOUNTER 2022-04-17 05:34 | Outpatient (CLI) | payer MEDICARE ==
[~2022-04-17] VITALS: Ht 154.9 cm; Wt 51.4 kg
[~2022-04-17 05:34] MED LIST changes: +PANT40TA2 PO
[2022-04-17] MEDS ORDERED: CA C1TAB75 PO (12:13)
[2022-04-17] MEDS ORDERED: OMEG-34 PO (12:13)
[2022-04-17] MEDS ORDERED: HYDR12.56 PO (12:13)
[2022-04-17] MEDS ORDERED: LEVO175T5 PO (12:13)
[2022-04-17] MEDS ORDERED: FERR159T2 PO (12:13)
[2022-04-17] MEDS ORDERED: DOCU100T7 PO (12:14)
[2022-04-17] MEDS ORDERED: MAGN250C PO (12:14)
[2022-04-17] MEDS ORDERED: DIPH25CA79 PO (12:14)
== END 2022-04-17 12:24 | disposition home or self-care (01) ==
LOC: PREOP 05:34
PROVIDERS: ATTEND Specialist
DX: Z01.818 Encounter for other preprocedural examination (principal)

== ENCOUNTER 2022-04-21 05:55 | Day surgery (SDC) | payer MEDICARE ==
[~2022-04-21] VITALS: Ht 154.9 cm; Wt 51.4 kg
[~2022-04-21 05:55] MED LIST changes: +CA C1TAB75 PO; +DOCU100T7 PO; +FERR159T2 PO; +HYDR12.56 PO; +LEVO175T5 PO; +MAGN250C PO; +OMEG-34 PO
[2022-04-21] MEDS ORDERED: TIMOLOL 0.5% (CATARACTS) 0.3 ML BTL OU PRN (06:15)
[2022-04-21] MEDS ORDERED: MOXIFLOXACIN OPHTH SOLN 5 MG/ML 0.3 ML SYRINGE OP ONE (06:15)
[2022-04-21] MEDS ORDERED: POVIDONE (BETADINE) OPHTH SOLN 5% 30 ML OP ONE (06:15)
[2022-04-21] MEDS: TETRACAINE 0.5% OPHTH SOLN 4 ML BTL (SINGLE DOSE ONLY) OU PRN ×4 (06:21→06:39)
[2022-04-21] MEDS: PHENYLEPHRINE 10% OPHTH (NEO-SYN) 5 ML BTL OU SCH ×3 (06:27→06:39)
[2022-04-21] MEDS: TROPICAMIDE 1% OPH SOLN (MYDRIACYL) 15 ML BTL OP SCH ×3 (06:28→06:40)
[2022-04-21 06:42] VITALS: BP 149/79
[2022-04-21] MEDS ORDERED: MIDAZOLAM 2 MG/2 ML (VERSED) VIAL ONE (06:59)
--- NOTE | 2022-04-21 07:02 | Ophthalmologist Pre-Op Note ---
Pre-Operative Progress Note H&P Reviewed The H&P was reviewed, patient examined and no changes noted. Date H&P Reviewed: Apr 21, 2022 Time H&P Reviewed: 07:02 Pre-Op Dx Cataract, Right Eye HEMANTH DYER MD Apr 21, 2022 07:02
--- NOTE | 2022-04-21 07:25 | Ophthalmology Operative Report ---
Cataract, Miotic Pupil PREOPERATIVE DIAGNOSIS: 1. Cataract Right Eye 2. Miotic Pupil POSTOPERATIVE DIAGNOSIS: 1. Cataract Right Eye 2. Miotic Pupil PROCEDURE: 1. Cataract removal and placement of posterior chamber implant, right eye 2. Pupillary expansion with malyugin ring SURGEON: Samuel Dyer ANESTHESIA: Topical with sedation COMPLICATIONS: None ESTIMATED BLOOD LOSS: Minimal DESCRIPTION OF PROCEDURE: After proper informed consent was obtained, the patient, a 71 female, was taken to the Operating Room and the right eye was anesthetized with Tetracaine. The eye was then prepped and draped in the usual manner. A wire lid speculum was placed. A paracentesis was made at the left hand position. Preservative free lidocaine was injected into anterior chamber followed by viscoelastic. A clear corneal incision was made in the temporal position. The malyugin ring was injected into the anterior chamber and the pupil was dilated. A capsulorrhexis was preformed and the central nuclear and cortical material were removed. The posterior capsule was polished and Oracio 22.0 [id number] IOL was placed into the capsular bag. The malyugin ring was removed. The residual viscoelastic was aspirated and the balanced saline solution was injected into the anterior chamber. Moxifloxacin was injected into the anterior chamber. The wound was checked and found to be water tight. The patient tolerated the procedure well without complications. SAMUEL DYER MD Apr 21, 2022 07:25
[2022-04-21 07:35] VITALS: BP 170/93
[2022-04-21] MEDS ORDERED: acetaZOLAMIDE ER 500 MG CAP (DIAMOX SEQUELS) PO ONE (07:45)
--- NOTE | 2022-04-21 12:01 | Anesthesia-General Post-Op ---
MAC Patient Condition Mental Status/LOC: Same as Preop Cardiovascular: Satisfactory Nausea/Vomiting: Absent Respiratory: Satisfactory Pain: Controlled Complications: Absent Post Op Complications Complications None Follow Up Care/Instructions Patient Instructions None needed. Anesthesiology Discharge Order Discharge Order Patient was doing well after the procedure with no complaints, stable vital signs, no apparent adverse anesthesia problems. No complications reported per nursing. BALJIT MALIK 17, 2023 12:01
== END 2022-04-21 07:38 | disposition home or self-care (01) ==
LOC: SDC 05:55
PROVIDERS: ATTEND Specialist
DX: E11.36 Type 2 diabetes mellitus with diabetic cataract (principal); H25.9 Unspecified age-related cataract; Z79.84 Long term (current) use of oral hypoglycemic drugs; Z79.85 Long-term (current) use of injectable non-insulin antidiabetic drugs; Z79.4 Long term (current) use of insulin
CPT/HCPCS: 66982; V2632

== ENCOUNTER → 2022-05-05 | Outpatient (RCR) | payer MEDICARE | END | disposition home or self-care (01) | PROVIDERS: ATTEND Pediatrics | DX: R68.84 Jaw pain (principal) ==

== ENCOUNTER 2022-05-18 05:31 | Outpatient (CLI) | payer MEDICARE | END 2022-05-18 13:57 | disposition home or self-care (01) | LOC: PREOP 05:31 | PROVIDERS: ATTEND Specialist | DX: Z01.818 Encounter for other preprocedural examination (principal) ==

== ENCOUNTER 2022-05-24 11:25 | Outpatient (RCR) | payer MEDICARE | END 2022-05-25 13:29 | disposition home or self-care (01) | PROVIDERS: ATTEND Pediatrics | DX: R68.84 Jaw pain (principal) ==

== ENCOUNTER 2022-05-26 06:06 | Day surgery (SDC) | payer MEDICARE ==
[~2022-05-26] VITALS: Ht 154.9 cm; Wt 51.4 kg
[2022-05-26 06:00] VITALS: BP 129/79
[2022-05-26] MEDS ORDERED: MOXIFLOXACIN OPHTH SOLN 5 MG/ML 0.3 ML SYRINGE OP ONE (06:15)
[2022-05-26] MEDS ORDERED: TIMOLOL 0.5% (CATARACTS) 0.3 ML BTL OU PRN (06:15)
[2022-05-26] MEDS ORDERED: POVIDONE (BETADINE) OPHTH SOLN 5% 30 ML OP ONE (06:15)
[2022-05-26] MEDS: TETRACAINE 0.5% OPHTH SOLN 4 ML BTL (SINGLE DOSE ONLY) OU PRN ×4 (06:17→06:31)
[2022-05-26] MEDS: TROPICAMIDE 1% OPH SOLN (MYDRIACYL) 15 ML BTL OP SCH ×3 (06:23→06:37)
[2022-05-26] MEDS: PHENYLEPHRINE 10% OPHTH (NEO-SYN) 5 ML BTL OU SCH ×3 (06:23→06:37)
[2022-05-26] MEDS ORDERED: MIDAZOLAM 2 MG/2 ML (VERSED) VIAL ONE (06:44)
--- NOTE | 2022-05-26 07:40 | Ophthalmology Operative Report ---
Cataract, Miotic Pupil PREOPERATIVE DIAGNOSIS: 1. Cataract Left Eye 2. Miotic Pupil POSTOPERATIVE DIAGNOSIS: 1. Cataract Left Eye 2. Miotic Pupil PROCEDURE: 1. Cataract removal and placement of posterior chamber implant, left eye 2. Pupillary expansion with malyugin ring SURGEON: Samuel Dyer ANESTHESIA: Topical with sedation COMPLICATIONS: None ESTIMATED BLOOD LOSS: Minimal DESCRIPTION OF PROCEDURE: After proper informed consent was obtained, the patient, a 71 female, was taken to the Operating Room and the left eye was anesthetized with Tetracaine. The eye was then prepped and draped in the usual manner. A wire lid speculum was placed. A paracentesis was made at the left hand position. Preservative free l idocaine was injected into anterior chamber followed by viscoelastic. A clear corneal incision was made in the temporal position. The malyugin ring was injected into the anterior chamber and the pupil was dilated. A capsulorrhexis was preformed and the central nuclear and cortical material were removed. The posterior capsule was polished and Oracio 18.5 [id number] IOL was placed into the capsular bag. The myalgian ring was removed. The residual viscoelastic was aspirated and the balanced saline solution was injected into the anterior chamber. Moxifloxacin was injected into the anterior chamber. The wound was checked and found to be water tight. The patient tolerated the procedure well without complications. [Limbal Relaxing Incision placed ] [ ]mm at [ ]. SAMUEL DYER MD May 26, 2022 07:40
--- NOTE | 2022-05-26 07:40 | Ophthalmologist Pre-Op Note ---
Pre-Operative Progress Note H&P Reviewed The H&P was reviewed, patient examined and no changes noted. Date H&P Reviewed: May 26, 2022 Time H&P Reviewed: 08:15 Pre-Op Dx Cataract, Left Eye HEMANTH DYER MD May 26, 2022 07:40
[2022-05-26 07:44] VITALS: BP 127/61
[2022-05-26] MEDS ORDERED: acetaZOLAMIDE ER 500 MG CAP (DIAMOX SEQUELS) PO ONE (09:15)
--- NOTE | 2022-05-26 13:02 | Anesthesia-General Post-Op ---
MAC Patient Condition Mental Status/LOC: Same as Preop Cardiovascular: Satisfactory Nausea/Vomiting: Absent Respiratory: Satisfactory Pain: Controlled Complications: Absent Post Op Complications Complications None Follow Up Care/Instructions Patient Instructions None needed. Anesthesiology Discharge Order Discharge Order Patient is doing well, no complaints, stable vital signs, no apparent adverse anesthesia problems. No complications reported per nursing. JAMES BRANCH CRNA May 26, 2022 13:02
== END 2022-05-26 07:48 | disposition home or self-care (01) ==
LOC: SDC 06:06
PROVIDERS: ATTEND Specialist
DX: E11.36 Type 2 diabetes mellitus with diabetic cataract (principal); H25.9 Unspecified age-related cataract; H57.03 Miosis; Z79.4 Long term (current) use of insulin; Z79.85 Long-term (current) use of injectable non-insulin antidiabetic drugs
CPT/HCPCS: 66982; 82947; V2632

== ENCOUNTER 2022-11-09 08:33 | Emergency (ER) | payer MEDICARE ==
[~2022-11-09] VITALS: Ht 154 cm; Wt 48.5 kg
[~2022-11-09 08:33] MED LIST changes: -TIMO5DRO27 OP; -TIMO5DRO27 OU; +TIMO5DRO39 OP; +TIMO5DRO39 OU
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
[2022-11-09] MEDS ORDERED: ONDANSETRON 4 MG ORAL DISSOLVE TABLET PO STA (09:13)
--- NOTE | 2022-11-09 09:33 | Diagnostic Imaging Report ---
EXAMINATION: Bilateral wrist 3 views each. HISTORY: Wrist trauma. COMPARISON: None available. FINDINGS: There is a posterior angulated right distal radial fracture. There is a posterior angulated left distal radial fracture. No other fracture is seen. 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 There is an old nonunited right ulnar styloid process fracture. There is severe left 1st carpometacarpal joint osteoarthritis and moderate right 1st carpometacarpal joint osteoarthritis. IMPRESSION: 1. Bilateral distal radial fractures with mild posterior angulation. Dictated by: Dictated on workstation # [id number]
--- NOTE | 2022-11-09 10:08 | Diagnostic Imaging Report ---
PROCEDURE: CT lumbar spine without contrast. TECHNIQUE: Multiple contiguous axial images were obtained through the lumbar spine without the use of intravenous contrast. Sagittal and coronal reformations were then performed. Auto Exposure Controls were utilized during the CT exam to meet ALARA standards for radiation dose reduction. INDICATION: Fall with back pain. COMPARISON: Limited to lumbar radiographs performed 2017. FINDINGS: From prior, there is what is presumed to be an acute to subacute fracture of the L2 superior endplate resulting in about 20% stature loss. The superior endplate cortex is retropulsed approximately 5 mm. There is some very mild paraspinal swelling and soft tissue edema but no fluid collection. No acute epidural abnormality. The inferior endplate appeared intact, the visible sacrum and remaining lumbar levels intact. There is mild degenerative changes greatest at L5-S1 where there is mild canal with mild left greater than right foraminal degenerative stenosis. Pedicles and pars intact. Bone density suggests likely underlying osteoporosis or osteopenia. There are gallstones noted incidentally. IMPRESSION: 1. Acute or subacute L2 superior endplate compression fracture with mild retropulsion, posterior elements intact. The remaining levels nonacute. Underlying osteopenia suspected. 2. Degenerative changes greatest at L5-S1. 3. Cholelithiasis. Dictated by: Dictated on workstation # [id number]
[2022-11-09] MEDS ORDERED: ACHD5005 PO (10:30)
[2022-11-09] MEDS ORDERED: ONDA8TAB13 SL (10:58)
[2022-11-09 11:08] VITALS: BP 114/62
== END 2022-11-09 11:00 | disposition home or self-care (01) ==
LOC: EDUNIT# 08:33 → ER 08:35
DX: S52.502A Unspecified fracture of the lower end of left radius, initial encounter for closed fracture (principal); S32.029A Unspecified fracture of second lumbar vertebra, initial encounter for closed fracture; E11.9 Type 2 diabetes mellitus without complications; Z79.4 Long term (current) use of insulin; W18.30XA Fall on same level, unspecified, initial encounter; Y92.009 Unspecified place in unspecified non-institutional (private) residence as the place of occurrence of the external cause
CPT/HCPCS: 29125; 72131